=== PATIENT | female | born 1955 | race Caucasian/White ===

== ENCOUNTER 2016-09-09 17:29 | Emergency (ER) | payer OTHER ==
[~2016-09-09] VITALS: Wt 68.6 kg
[~2016-09-09 17:29] MED LIST: DOCU-159 PO; ESCI10TA PO; GABA100C PO; METH500T8 PO; METO-448 PO; OMEP20CA16 PO; ONDA4TAB35 PO
[2016-09-09] MEDS ORDERED: HYDROCODONE/APAP (5/325) TAB PO STA ×2 (19:51→20:36)
--- NOTE | 2016-09-09 20:29 | RADRPT ---
PROCEDURE: XR Humerus. CLINICAL INDICATION: Generalized pain TECHNIQUE: AP and lateral views of the right humerus were obtained. COMPARISON: No prior studies are available for comparison. FINDINGS: There are calcific fragments noted at the rotator cuff footprint measuring up to 7 mm in greatest le ngth, consistent with calcific tendonitis/hydroxyapatite deposition disease. There is mild arthrosi s at the glenohumeral and AC joints. No acute osseous abnormality is seen. IMPRESSION: 1. 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 2. No acute osseous abnormality. 3. Mild glenohumeral and AC joint arthrosis. RPTAT: TT .Ata Rod MD, MD Date Time Electronically viewed and signed by .Ata Rod MD, on 09/09/2016 20:29 .d/
--- NOTE | 2016-09-09 20:30 | RADRPT ---
PROCEDURE: XR Shoulder. CLINICAL INDICATION: Generalized pain TECHNIQUE: 2 views of the right shoulder are available for review. COMPARISON: None available FINDINGS: There are calcific fragments noted at the rotator cuff footprint measuring up to 7 mm in greatest le ngth, consistent with calcific tendonitis/hydroxyapatite deposition disease. There is mild arthrosi s at the glenohumeral and AC joints. No acute osseous abnormality is seen. The visualized portions of the right lung are clear. IMPRESSION: 1. 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 2. No acute osseous abnormality. 3. Mild glenohumeral and AC joint arthrosis. RPTAT: TT .Ata Rod MD, Date Time Electronically viewed and signed by .Ata Rod MD, on 09/09/2016 20:30 .d/
[2016-09-09] MEDS ORDERED: HYDR-906 PO (20:39)
--- NOTE | 2016-09-09 20:51 | ERD ---
ER Documentation Chief Complaint Date/Time DATE: 09/09/16 TIME: 20:48 Chief Complaint R ARM NON TRAUMATIC PAIN FOR 3 DAYS. NO DEFORMITY. LIMITED ROM HPI This is a 60-year-old female with history of hypertension presenting to the emergency department complaining of right shoulder and upper arm pain for the past 2 days. Patient states that she had no injury and happened suddenly when she woke up. Patient rates the pain 9 out of 10 and she states that it is difficult for her to move her arm. She states he took Tylenol 3 this morning without any relief. ROS All systems reviewed and are negative except as per history of present illness. Medications Home Meds Active Scripts Hydrocodone/Acetaminophen ([place] 5-325 Tablet) 1 Each Tablet, 1 TAB PO Q6H Y for PAIN, #20 TAB Prov:ABEBA CAMARILLO PA-C 09/09/16 Ondansetron Hcl* (Zofran* ODT) 4 mg -ODT Tab.disper, 4 MG PO Q6 Y for NAUSEA AND /OR VOMITING, #30 TAB Prov:NANCY HIGUERA MD 06/24/15 Reported Medications Metoprolol Tartrate* (Lopressor*) 25 Mg Tab, 25 MG PO BID, #60 TAB 06/24/15 Gabapentin* (Neurontin*) 100 Mg Capsule, 200 MG PO BID, CAP 06/24/15 Methocarbamol* (Methocarbamol*) 500 Mg Tablet, 500 MG PO Q8, TAB 06/24/15 Escitalopram Oxalate* (Lexapro*) 10 Mg Tablet, 10 MG PO DAILY, #30 TAB 06/24/15 Omeprazole* (Omeprazole*) 20 Mg Capsule.dr, 20 MG PO DAILY, CAP 06/24/15 Docusate Sodium* (Docusate Sodium*) 100 Mg Capsule, 100 MG PO DAILY, CAP 06/24/15 Allergies Allergies: Coded Allergies: sulfamethoxazole (Verified Allergy, Mild, 06/24/15) trimethoprim (Verified Allergy, Mild, 06/24/15) PMhx/Soc History of Surgery: Yes (RT EYE SURGERY) Anesthesia Reaction: No Hx Neurological Disorder: No Hx Respiratory Disorders: No Hx Cardiac Disorders: Yes (HTN) Hx Psychiatric Problems: No Hx Miscellaneous Medical Probl: Yes (pre-diabetic) Hx Alcohol Use: No Hx Substance Use: No Hx Tobacco Use: No Smoking Status: Never smoker Physical Exam Vitals Vital Signs Date Time Temp Pulse Resp B/P Pulse Ox O2 Delivery O2 Flow Rate FiO2 09/09/16 17:32 98.8 82 20 148/85 97 Physical Exam General: WD/WN, in no apparent distress, non-toxic appearing HENT: NC/AT Eyes: Conjunctiva normal Neck: Supple Pulm: Clear to auscultation, normal labored breathing; no wheezing/rales/ rhonchi heard CV: Good capillary refill GI: Non-distended, no guarding Back: No masses Ext: Tender palpation over the right shoulder and upper arm, restricted range of motion due to pain, patient is able to have full range of motion of her hand Neuro: Moves on all fours Skin: intact Psych: Normal mood Results 24 hrs Current Medications Medications (Trade) Dose Ordered Sig/Rere Route PRN Reason Start Time Stop Time Status Last Admin Dose Admin Acetaminophen/ Hydrocodone Bitart ([place] (5/325)) 2 tab ONCE STAT PO 09/09/16 19:51 09/09/16 19:57 DC Acetaminophen/ Hydrocodone Bitart ([place] (5/325)) 2 tab ONCE STAT PO 09/09/16 20:36 09/09/16 20:37 DC Procedures/MDM This is her 60-year-old female presenting to the emergency department complaining of atraumatic right shoulder pain for the past 3 days, differentials include but not limited to tendinitis, rotator cuff tear, adhesive capsulitis, and other shoulder conditions. I will low suspicion for fracture dislocation due to physical examination and diagnostic testing. In the ED patient was given [place] for pain. She is placed in an arm sling. Patient is neurovascular intact pre-and post treatment, she has restricted range of motion because of the pain. An x-ray of her right shoulder and forearm were done and radiologist stated: 1. 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 2. No acute osseous abnormality. 3. Mild glenohumeral and AC joint arthrosis. Patient is suitable to follow-up with her primary care physician tomorrow for further action management and possible referral to see an orthopedist. I discussed the patient return the ER for any worsening signs or symptoms. Prescription for [place] was provided, patient states that she is unable to take ibuprofen or NSAIDs due to gastritis patient understands and agrees with plan Departure Diagnosis: Primary Impression: Tendonitis Additional Impression: Right shoulder pain Chronicity: acute Qualified Code: M25.511 - Acute pain of right shoulder Condition: Stable Patient Instructions: Understanding Rotator Cuff Injuries, Shoulder Problems, Rotator Cuff Tear, Tendonitis Ref[facility]: [facility] Usted se sheikh hecho un examen mdico de control que le indica que no est en rosa condicin que requiera tratamiento urgente en el Departamento de Emergencia. Un estudio ms profundo y el tratamiento de [place] condicin pueden esperar sin ningn riesgo hasta que usted sea atendida/o en el consultorio de bar[place] mdico o rosa cl brandt. Es responsabilidad suya arreglar rosa delia para el seguimiento del imelda. MANEJO DE CONDICIONES NO URGENTES EN EL FUTURO 1) Si usted tiene un mdico de atencin primaria: Usted debera llamar a [place] mdico de atencin primaria antes de venir al departamento de emergencia. Despus de las horas de consultorio, [place] doctor o [place] asociado/a est disponible por telfono. El mdico o enfermero de jewel en el servicio telefnico puede asesorarle por donaldo medio para atender el problema, o imelda contrario se puede programar rosa delia. 2) Si usted no tiene un mdico de atencin primaria: Llame al mdico o clnica de referencia que aparece abajo khadijah las horas de consultorio para hacer rosa delia para que le vean. CLINICAS: [facility] [phone] [facility] [phone] [address] [facility] [phone] [address] [facility] [phone] [address] [facility] 536 [phone] [address] [facility] [phone] [address] [facility]. [facility] () Matilde se sheikh hecho un examen mdico de control que le indica que no est en rosa condicin que requiera tratamiento urgente en el Departamento de Emergencia. Un estudio ms profundo y el tratamiento de [place] condicin pueden esperar sin ningn riesgo hasta que usted sea atendida/o en el consultorio de bar[place] mdico o rosa cl brandt. Es responsabilidad suya arreglar rosa delia para el seguimiento del imelda. MANEJO DE CONDICIONES NO URGENTES EN EL FUTURO 1) Si usted tiene un mdico de atencin primaria: ted debera llamar a [place] mdico de atencin primaria antes de venir al departamento de emergencia. Despus de las horas de consultorio, [place] doctor o [place] asociado/a est disponible por telfono. El mdico o enfermero de jewel en el servicio telefnico puede asesorarle por donaldo medio para atender el problema, o imelda contrario se puede programar rosa delia. 2) Si usted no tiene un mdico de atencin primaria: Llame al mdico o condado institucions de referencia que aparece abajo khadijah las horas de consultorio para hacer rosa delia para que le vean. SI USTED NO PUEDE PAGAR PARA KAMAR UN MEDICO puede ir a: [facility] [address] [place] [address] [facility] [address] [place] [address] [facility] [address] [place] [address] [facility]A [facility] [address] [place] [address] Additional Instructions: Specialist:Matilde tiene rosa condicin mdica que requiere que twin a un especialista dentro de los prximos 1-2 de la paz.POR FAVOR,CON [place] SEGUIMIENTO DE PRIMARIA PHSICIAN refferal. SI USTED NO TIENE UN MDICO GENERAL Y / O USTED NO PUEDE PAGAR kamar a un mdico,los siguientes hayes RECURSOS sido suministrado a usted. ES [place] RESPONSABILIDAD PARA SER VISTOS POR EL ESPECIALISTA:Visite a bar[place] m dico maana para un EXAMEN.Regrese a estas instalaciones si no se mejora samia esperbamos o samia le dijimos. [place] toda la medicina olena y samia se le indic. La medicina que se le recet puede causarle sueo.NO DEBE MANEJAR NI OPERAR MAQUINARIAS PELIGROSAS mientras esta tomando esta medicina! Regrese a estas instalaciones si no se mejora samia esperbamos o samia le dijimos. ABEBA CAMARILLO PA-C Sep 09, 2016 20:51
[2016-09-09 21:32] VITALS: BP 151/81; PULSE 75; RESP 20; TEMP 98.3
== END 2016-09-09 21:32 | disposition home or self-care (01) ==
LOC: FTE 17:29
DX: M77.9 Enthesopathy, unspecified (principal); I10 Essential (primary) hypertension
CPT/HCPCS: 73030; 73060; Z7502; Z7610

== ENCOUNTER 2017-05-05 11:14 | Inpatient (IN) | payer OTHER ==
[~2017-05-05] VITALS: Ht 157.5 cm; Wt 74.1 kg
[~2017-05-05 11:14] MED LIST changes: +HYDR-906 PO
--- NOTE | 2017-05-05 14:21 | ERD ---
ER Documentation Chief Complaint Chief Complaint AP RADIATING TO BACK X4 DAYS, W/NAUSEA. HPI The patient is a 61-year-old female, presenting to the ER because of diffuse abdominal pain intermittently for the last 4 days, worse today, associated with nausea and constipation. She denies fever, chills, neck pain, chest pain, dyspnea, dysuria. She does smoke, denies drinking Past medical history: Hypertension, depression Past surgical history: Right knee replacement, eye surgery, ROS All systems reviewed and are negative except as per history of present illness. Medications Home Meds Active Scripts Hydrocodone/Acetaminophen ([place] 5-325 Tablet) 1 Each Tablet, 1 TAB PO Q6H Y for PAIN, #20 TAB Prov:ABEBA CAMARILLO PA-C 09/09/16 Ondansetron Hcl* (Zofran* ODT) 4 mg -ODT Tab.disper, 4 MG PO Q6 Y for NAUSEA AND /OR VOMITING, #30 TAB Prov:NANCY HIGUERA MD 06/24/15 Reported Medications Metoprolol Tartrate* (Lopressor*) 25 Mg Tab, 25 MG PO BID, #60 TAB 06/24/15 Gabapentin* (Neurontin*) 100 Mg Capsule, 200 MG PO BID, CAP 06/24/15 Methocarbamol* (Methocarbamol*) 500 Mg Tablet, 500 MG PO Q8, TAB 06/24/15 Escitalopram Oxalate* (Lexapro*) 10 Mg Tablet, 10 MG PO DAILY, #30 TAB 06/24/15 Omeprazole* (Omeprazole*) 20 Mg Capsule.dr, 20 MG PO DAILY, CAP 06/24/15 Docusate Sodium* (Docusate Sodium*) 100 Mg Capsule, 100 MG PO DAILY, CAP 06/24/15 Allergies Allergies: Coded Allergies: sulfamethoxazole (Verified Allergy, Mild, 06/24/15) trimethoprim (Verified Allergy, Mild, 06/24/15) PMhx/Soc History of Surgery: Yes (RT EYE SURGERY) Anesthesia Reaction: No Hx Neurological Disorder: No Hx Respiratory Disorders: No Hx Cardiac Disorders: Yes (HTN) Hx Psychiatric Problems: No Hx Miscellaneous Medical Probl: Yes (pre-diabetic) Hx Alcohol Use: No Hx Substance Use: No Hx Tobacco Use: No Physical Exam Vitals Vital Signs Date Time Temp Pulse Resp B/P Pulse Ox O2 Delivery O2 Flow Rate FiO2 05/05/17 16:49 61 16 104/53 99 Room Air 05/05/17 11:29 99.5 77 18 149/88 99 Physical Exam Const: No acute distress. Head: Atraumatic. Eyes: Normal Conjunctiva. ENT: Normal External Ears, Nose and Mouth. Neck: Full range of motion. No meningismus. Resp: Clear to auscultation bilaterally. Cardio: Regular rate and rhythm. Abd: Soft, non distended, normal bowel sounds, Moderate and diffuse abdominal tenderness, no rigidity, rebound, CVA tenderness Skin: No petechiae or rashes. Back: No midline or flank tenderness. Ext: No cyanosis, or edema. Neur: Awake and alert. No focal deficit Psych: Normal Mood and Affect. Result Diagram: 05/05/17 1458 05/05/17 1458 Results 24 hrs Laboratory Tests Test 05/05/17 14:37 05/05/17 14:58 Bedside Urine pH (LAB) 7.5 Bedside Urine Protein (LAB) Negative Bedside Urine Glucose (UA) Negative Bedside Urine Ketones (LAB) Negative Bedside Urine Blood Trace-lysed Bedside Urine Nitrite (LAB) Negative Bedside Urine Leukocyte Esterase (L Negative White Blood Count 12.410^3/ul Red Blood Count 4.7810^6/ul Hemoglobin 13.5g/dl Hematocrit 41.9% Mean Corpuscular Volume 87.7fl Mean Corpuscular Hemoglobin 28.2pg Mean Corpuscular Hemoglobin Concent 32.2g/dl Red Cell Distribution Width 13.7% Platelet Count 66747^3/UL Mean Platelet Volume 10.1fl Neutrophils % 73.3% Lymphocytes % 17.4% Monocytes % 6.8% Eosinophils % 1.5% Basophils % 0.6% Nucleated Red Blood Cells % 0.0/100WBC Neutrophils # 9.110^3/ul Lymphocytes # 2.210^3/ul Monocytes # 0.810^3/ul Eosinophils # 0.210^3/ul Basophils # 0.110^3/ul Nucleated Red Blood Cells # 0.010^3/ul Sodium Level 140mmol/L Potassium Level 3.8mmol/L Chloride Level 103mmol/L Carbon Dioxide Level 27mmol/L Anion Gap 14 Blood Urea Nitrogen 9mg/dl Creatinine 0.55mg/dl Glucose Level 95mg/dl Calcium Level 8.9mg/dl Total Bilirubin 0.2mg/dl Direct Bilirubin 0.00mg/dl Indirect Bilirubin 0.2mg/dl Aspartate Amino Transf (AST/SGOT) 19IU/L Alanine Aminotransferase (ALT/SGPT) 34IU/L Alkaline Phosphatase 106IU/L Total Protein 7.3g/dl Albumin 4.1g/dl Globulin 3.20g/dl Albumin/Globulin Ratio 1.28 Lipase 88U/L Current Medications Medications (Trade) Dose Ordered Sig/Rere Route PRN Reason Start Time Stop Time Status Last Admin Dose Admin Morphine Sulfate (morphine) 2 mg ONCE ONCE IV 05/05/17 15:00 05/05/17 15:01 DC 05/05/17 15:04 Ondansetron HCl (Zofran Inj) 4 mg ONCE STAT IV 05/05/17 14:36 05/05/17 14:37 DC 05/05/17 15:04 Hydromorphone HCl 1 mg 1 mg ONCE STAT IV 05/05/17 15:45 05/05/17 15:46 DC 05/05/17 16:08 Piperacillin Sod/ Tazobactam Sod (Zosyn 3.375gm/ 100 ml (Pmx)) 100 ml @ 200 mls/hr ONCE ONCE IVPB 05/05/17 16:30 05/05/17 16:59 DC 05/05/17 16:28 Procedures/[place] [address] Radiology Main Line: [phone] DIAGNOSTIC IMAGING REPORT Patient: DREW EDUARDO : 1955 Age: 61 Sex: F MR #: [id number] DOS: 05/05/17 0000 Ordering MD: MATTY MAYERS MD Location: E/R Room/Bed: PROCEDURE: Chest x-ray CLINICAL INDICATION: Preop TECHNIQUE: Chest single view COMPARISON: None FINDINGS: The heart is normal in size. The pulmonary vessels are normal in caliber. The lungs are clear. The costophrenic angles are sharp. The visualized bony thorax is unremarkable. IMPRESSION: No acute cardiopulmonary disease. RPTAT: HH .Almas Huerta MD, Date Time Electronically viewed and signed by .Almas Huerta MD, MD on 05/05/2017 17:11 .W/ CC: MATTY MAYERS MD [place] [address] Radiology Main Line: [phone] DIAGNOSTIC IMAGING REPORT Patient: DREW EDUARDO : 1955 Age: 61 Sex: F MR #: [id number] DOS: 05/05/17 1437 Ordering MD: MATTY MAYERS MD Location: E/R Room/Bed: PROCEDURE: CT ABDOMEN AND PELVIS WITHOUT CONTRAST. CLINICAL INDICATION: Abdominal pain TECHNIQUE: CT scan of the abdomen and pelvis without contrast was performed on a multidetector high-resolution CT scanner. The patient was scanned without intravenous contrast. Coronal and sagittal reformatted images were obtained from the axial source images. Images were reviewed on a high-resolution PACS workstation. The total exam CTDI equals 18.5 mGy and the total exam DLP equals 1010 mGy-cm. One or more of the following dose reduction techniques were used: Automated exposure control. Adjustment of the mA and/or kV according to patient size. Use of iterative reconstruction technique. COMPARISON: None FINDINGS: CT abdomen: The lung bases are clear. The heart size is within limits. There is no significant pericardial effusion. Hepatic morphology is within limits. Small cyst is noted within the right lobe liver. Gallbladder is unremarkable. No evidence of intrahepatic or extrahepatic dilatation. The spleen and pancreas are within normal limits. Both adrenal glands are within normal limits. Both kidneys are in normal anatomic position. No evidence of obstruction or hydronephrosis. No gross renal/ureteric calculi. The visualized GI tract demonstrate normal caliber loops of small and large bowel. There is a dilated tubular structure within right lower quadrant with adjacent inflammatory changes, consistent with acute appendicitis. No evidence of perforation or focal fluid collections. Atherosclerotic calcification of the aorta is noted. No significant retroperitoneal lymphadenopathy. CT pelvis: The bladder is within limits. The rectosigmoid colon is within normal limits. The uterus is unremarkable. There is sigmoid diverticulosis. No signal free fluid. No significant pelvic lymphadenopathy. The visualized osseous structures demonstrate multilevel degenerative disease of the spine. IMPRESSION: 1. FINDINGS DESCRIBED ABOVE ARE CONSISTENT WITH ACUTE APPENDICITIS. No perforation or focal fluid collections. There is adjacent inflammatory changes. 2. No evidence of bowel obstruction. There is sigmoid diverticulosis without evidence of diverticulitis. 3. Atherosclerotic disease of the aorta. RPTAT: AAPP Physician Darrell Date Time Electronically viewed and signed by Physician Darrell on 05/05/2017 15:36 JL/ CC: MATTY MAYERS MD EKG: Read by emergency physician Rate/Rhythm: Normal Sinus Rhythm 63 beats/min QRS, ST, T-waves: No ST elevation, no T inversion Impression: Normal EKG MEDICAL MAKING DECISION: The patient is a 71-year-old female, presenting with acute appendicitis. She was treated with Zosyn IV, morphine 4 mg and Dilaudid 1 mg IV for pain and Zofran 4 mg IV for nausea with good response. The differential diagnoses considered include but are not limited to cholelithiasis, cholecystitis, cystitis, pancreatitis, hepatitis, gastritis, peptic ulcer disease, gastric ulcer, appendicitis, diverticulitis, cholangitis, choledocholithiasis, partial small bowel obstruction. Consultation: I discussed the patient with the on-call general surgeon Dr. Mckee at 4:30 PM, who was made aware of the lab, the treatment, the patient condition. He accepted the consult Departure Diagnosis: Primary Impression: Appendicitis Condition: Stable Comments I discussed the findings with the patient. I discussed the patient with hospitalist Dr. Coates at 4:35 pm who was made aware of the lab, the treatment , the patient condition. The patient is admitted to medical surgery bed MATTY MAYERS MD May 05, 2017 14:21
--- NOTE | 2017-05-05 14:21 | ERD ---
ER Documentation Chief Complaint Chief Complaint AP RADIATING TO BACK X4 DAYS, W/NAUSEA. HPI The patient is a 61-year-old female, presenting to the ER because of diffuse abdominal pain intermittently for the last 4 days, worse today, associated with nausea and constipation. She denies fever, chills, neck pain, chest pain, dyspnea, dysuria. She does smoke, denies drinking Past medical history: Hypertension, depression Past surgical history: Right knee replacement, eye surgery, ROS All systems reviewed and are negative except as per history of present illness. Medications Home Meds Active Scripts Hydrocodone/Acetaminophen ([place] 5-325 Tablet) 1 Each Tablet, 1 TAB PO Q6H Y for PAIN, #20 TAB Prov:ABEBA CAMARILLO PA-C 09/09/16 Ondansetron Hcl* (Zofran* ODT) 4 mg -ODT Tab.disper, 4 MG PO Q6 Y for NAUSEA AND /OR VOMITING, #30 TAB Prov:NANCY HIGUERA MD 06/24/15 Reported Medications Metoprolol Tartrate* (Lopressor*) 25 Mg Tab, 25 MG PO BID, #60 TAB 06/24/15 Gabapentin* (Neurontin*) 100 Mg Capsule, 200 MG PO BID, CAP 06/24/15 Methocarbamol* (Methocarbamol*) 500 Mg Tablet, 500 MG PO Q8, TAB 06/24/15 Escitalopram Oxalate* (Lexapro*) 10 Mg Tablet, 10 MG PO DAILY, #30 TAB 06/24/15 Omeprazole* (Omeprazole*) 20 Mg Capsule.dr, 20 MG PO DAILY, CAP 06/24/15 Docusate Sodium* (Docusate Sodium*) 100 Mg Capsule, 100 MG PO DAILY, CAP 06/24/15 Allergies Allergies: Coded Allergies: sulfamethoxazole (Verified Allergy, Mild, 06/24/15) trimethoprim (Verified Allergy, Mild, 06/24/15) PMhx/Soc History of Surgery: Yes (RT EYE SURGERY) Anesthesia Reaction: No Hx Neurological Disorder: No Hx Respiratory Disorders: No Hx Cardiac Disorders: Yes (HTN) Hx Psychiatric Problems: No Hx Miscellaneous Medical Probl: Yes (pre-diabetic) Hx Alcohol Use: No Hx Substance Use: No Hx Tobacco Use: No Physical Exam Vitals Vital Signs Date Time Temp Pulse Resp B/P Pulse Ox O2 Delivery O2 Flow Rate FiO2 05/05/17 16:49 61 16 104/53 99 Room Air 05/05/17 11:29 99.5 77 18 149/88 99 Physical Exam Const: No acute distress. Head: Atraumatic. Eyes: Normal Conjunctiva. ENT: Normal External Ears, Nose and Mouth. Neck: Full range of motion. No meningismus. Resp: Clear to auscultation bilaterally. Cardio: Regular rate and rhythm. Abd: Soft, non distended, normal bowel sounds, Moderate and diffuse abdominal tenderness, no rigidity, rebound, CVA tenderness Skin: No petechiae or rashes. Back: No midline or flank tenderness. Ext: No cyanosis, or edema. Neur: Awake and alert. No focal deficit Psych: Normal Mood and Affect. Result Diagram: 05/05/17 1458 05/05/17 1458 Results 24 hrs Laboratory Tests Test 05/05/17 14:37 05/05/17 14:58 Bedside Urine pH (LAB) 7.5 Bedside Urine Protein (LAB) Negative Bedside Urine Glucose (UA) Negative Bedside Urine Ketones (LAB) Negative Bedside Urine Blood Trace-lysed Bedside Urine Nitrite (LAB) Negative Bedside Urine Leukocyte Esterase (L Negative White Blood Count 12.410^3/ul Red Blood Count 4.7810^6/ul Hemoglobin 13.5g/dl Hematocrit 41.9% Mean Corpuscular Volume 87.7fl Mean Corpuscular Hemoglobin 28.2pg Mean Corpuscular Hemoglobin Concent 32.2g/dl Red Cell Distribution Width 13.7% Platelet Count 66384^3/UL Mean Platelet Volume 10.1fl Neutrophils % 73.3% Lymphocytes % 17.4% Monocytes % 6.8% Eosinophils % 1.5% Basophils % 0.6% Nucleated Red Blood Cells % 0.0/100WBC Neutrophils # 9.110^3/ul Lymphocytes # 2.210^3/ul Monocytes # 0.810^3/ul Eosinophils # 0.210^3/ul Basophils # 0.110^3/ul Nucleated Red Blood Cells # 0.010^3/ul Sodium Level 140mmol/L Potassium Level 3.8mmol/L Chloride Level 103mmol/L Carbon Dioxide Level 27mmol/L Anion Gap 14 Blood Urea Nitrogen 9mg/dl Creatinine 0.55mg/dl Glucose Level 95mg/dl Calcium Level 8.9mg/dl Total Bilirubin 0.2mg/dl Direct Bilirubin 0.00mg/dl Indirect Bilirubin 0.2mg/dl Aspartate Amino Transf (AST/SGOT) 19IU/L Alanine Aminotransferase (ALT/SGPT) 34IU/L Alkaline Phosphatase 106IU/L Total Protein 7.3g/dl Albumin 4.1g/dl Globulin 3.20g/dl Albumin/Globulin Ratio 1.28 Lipase 88U/L Current Medications Medications (Trade) Dose Ordered Sig/Rere Route PRN Reason Start Time Stop Time Status Last Admin Dose Admin Morphine Sulfate (morphine) 2 mg ONCE ONCE IV 05/05/17 15:00 05/05/17 15:01 DC 05/05/17 15:04 Ondansetron HCl (Zofran Inj) 4 mg ONCE STAT IV 05/05/17 14:36 05/05/17 14:37 DC 05/05/17 15:04 Hydromorphone HCl 1 mg 1 mg ONCE STAT IV 05/05/17 15:45 05/05/17 15:46 DC 05/05/17 16:08 Piperacillin Sod/ Tazobactam Sod (Zosyn 3.375gm/ 100 ml (Pmx)) 100 ml @ 200 mls/hr ONCE ONCE IVPB 05/05/17 16:30 05/05/17 16:59 DC 05/05/17 16:28 Procedures/[place] [address] Radiology Main Line: [phone] DIAGNOSTIC IMAGING REPORT Patient: DREW EDUARDO : 1955 Age: 61 Sex: F MR #: [id number] DOS: 05/05/17 0000 Ordering MD: MATTY MAYERS MD Location: E/R Room/Bed: PROCEDURE: Chest x-ray CLINICAL INDICATION: Preop TECHNIQUE: Chest single view COMPARISON: None FINDINGS: The heart is normal in size. The pulmonary vessels are normal in caliber. The lungs are clear. The costophrenic angles are sharp. The visualized bony thorax is unremarkable. IMPRESSION: No acute cardiopulmonary disease. RPTAT: HH .Almas Huerta MD, Date Time Electronically viewed and signed by .Almas Huerta MD, MD on 05/05/2017 17:11 .W/ CC: MATTY MAYERS MD [place] [id number] Radiology Main Line: [phone] DIAGNOSTIC IMAGING REPORT Patient: DREW EDUARDO : 1955 Age: 61 Sex: F MR #: [id number] DOS: 05/05/17 1437 Ordering MD: MATTY MAYERS MD Location: E/R Room/Bed: PROCEDURE: CT ABDOMEN AND PELVIS WITHOUT CONTRAST. CLINICAL INDICATION: Abdominal pain TECHNIQUE: CT scan of the abdomen and pelvis without contrast was performed on a multidetector high-resolution CT scanner. The patient was scanned without intravenous contrast. Coronal and sagittal reformatted images were obtained from the axial source images. Images were reviewed on a high-resolution PACS workstation. The total exam CTDI equals 18.5 mGy and the total exam DLP equals 1010 mGy-cm. One or more of the following dose reduction techniques were used: Automated exposure control. Adjustment of the mA and/or kV according to patient size. Use of iterative reconstruction technique. COMPARISON: None FINDINGS: CT abdomen: The lung bases are clear. The heart size is within limits. There is no significant pericardial effusion. Hepatic morphology is within limits. Small cyst is noted within the right lobe liver. Gallbladder is unremarkable. No evidence of intrahepatic or extrahepatic dilatation. The spleen and pancreas are within normal limits. Both adrenal glands are within normal limits. Both kidneys are in normal anatomic position. No evidence of obstruction or hydronephrosis. No gross renal/ureteric calculi. The visualized GI tract demonstrate normal caliber loops of small and large bowel. There is a dilated tubular structure within right lower quadrant with adjacent inflammatory changes, consistent with acute appendicitis. No evidence of perforation or focal fluid collections. Atherosclerotic calcification of the aorta is noted. No significant retroperitoneal lymphadenopathy. CT pelvis: The bladder is within limits. The rectosigmoid colon is within normal limits. The uterus is unremarkable. There is sigmoid diverticulosis. No signal free fluid. No significant pelvic lymphadenopathy. The visualized osseous structures demonstrate multilevel degenerative disease of the spine. IMPRESSION: 1. FINDINGS DESCRIBED ABOVE ARE CONSISTENT WITH ACUTE APPENDICITIS. No perforation or focal fluid collections. There is adjacent inflammatory changes. 2. No evidence of bowel obstruction. There is sigmoid diverticulosis without evidence of diverticulitis. 3. Atherosclerotic disease of the aorta. RPTAT: AAPP Physician Darrell Date Time Electronically viewed and signed by Physician Darrell on 05/05/2017 15:36 JL/ CC: MATTY MAYERS MD EKG: Read by emergency physician Rate/Rhythm: Normal Sinus Rhythm 63 beats/min QRS, ST, T-waves: No ST elevation, no T inversion Impression: Normal EKG MEDICAL MAKING DECISION: The patient is a 71-year-old female, presenting with acute appendicitis. She was treated with Zosyn IV, morphine 4 mg and Dilaudid 1 mg IV for pain and Zofran 4 mg IV for nausea with good response. The differential diagnoses considered include but are not limited to cholelithiasis, cholecystitis, cystitis, pancreatitis, hepatitis, gastritis, peptic ulcer disease, gastric ulcer, appendicitis, diverticulitis, cholangitis, choledocholithiasis, partial small bowel obstruction. Consultation: I discussed the patient with the on-call general surgeon Dr. Mckee at 4:30 PM, who was made aware of the lab, the treatment, the patient condition. He accepted the consult Departure Diagnosis: Primary Impression: Appendicitis Condition: Stable Comments I discussed the findings with the patient. I discussed the patient with hospitalist Dr. Coates at 4:35 pm who was made aware of the lab, the treatment , the patient condition. The patient is admitted to medical surgery bed MATTY MAYERS MD May 05, 2017 14:21
--- NOTE | 2017-05-05 14:21 | ERD ---
ER Documentation Chief Complaint Chief Complaint AP RADIATING TO BACK X4 DAYS, W/NAUSEA. HPI The patient is a 61-year-old female, presenting to the ER because of diffuse abdominal pain intermittently for the last 4 days, worse today, associated with nausea and constipation. She denies fever, chills, neck pain, chest pain, dyspnea, dysuria. She does smoke, denies drinking Past medical history: Hypertension, depression Past surgical history: Right knee replacement, eye surgery, ROS All systems reviewed and are negative except as per history of present illness. Medications Home Meds Active Scripts Hydrocodone/Acetaminophen ([place] 5-325 Tablet) 1 Each Tablet, 1 TAB PO Q6H Y for PAIN, #20 TAB Prov:ABEBA CAMARILLO PA-C 09/09/16 Ondansetron Hcl* (Zofran* ODT) 4 mg -ODT Tab.disper, 4 MG PO Q6 Y for NAUSEA AND /OR VOMITING, #30 TAB Prov:NANCY HIGUERA MD 06/24/15 Reported Medications Metoprolol Tartrate* (Lopressor*) 25 Mg Tab, 25 MG PO BID, #60 TAB 06/24/15 Gabapentin* (Neurontin*) 100 Mg Capsule, 200 MG PO BID, CAP 06/24/15 Methocarbamol* (Methocarbamol*) 500 Mg Tablet, 500 MG PO Q8, TAB 06/24/15 Escitalopram Oxalate* (Lexapro*) 10 Mg Tablet, 10 MG PO DAILY, #30 TAB 06/24/15 Omeprazole* (Omeprazole*) 20 Mg Capsule.dr, 20 MG PO DAILY, CAP 06/24/15 Docusate Sodium* (Docusate Sodium*) 100 Mg Capsule, 100 MG PO DAILY, CAP 06/24/15 Allergies Allergies: Coded Allergies: sulfamethoxazole (Verified Allergy, Mild, 06/24/15) trimethoprim (Verified Allergy, Mild, 06/24/15) PMhx/Soc History of Surgery: Yes (RT EYE SURGERY) Anesthesia Reaction: No Hx Neurological Disorder: No Hx Respiratory Disorders: No Hx Cardiac Disorders: Yes (HTN) Hx Psychiatric Problems: No Hx Miscellaneous Medical Probl: Yes (pre-diabetic) Hx Alcohol Use: No Hx Substance Use: No Hx Tobacco Use: No Physical Exam Vitals Vital Signs Date Time Temp Pulse Resp B/P Pulse Ox O2 Delivery O2 Flow Rate FiO2 05/05/17 16:49 61 16 104/53 99 Room Air 05/05/17 11:29 99.5 77 18 149/88 99 Physical Exam Const: No acute distress. Head: Atraumatic. Eyes: Normal Conjunctiva. ENT: Normal External Ears, Nose and Mouth. Neck: Full range of motion. No meningismus. Resp: Clear to auscultation bilaterally. Cardio: Regular rate and rhythm. Abd: Soft, non distended, normal bowel sounds, Moderate and diffuse abdominal tenderness, no rigidity, rebound, CVA tenderness Skin: No petechiae or rashes. Back: No midline or flank tenderness. Ext: No cyanosis, or edema. Neur: Awake and alert. No focal deficit Psych: Normal Mood and Affect. Result Diagram: 05/05/17 1458 05/05/17 1458 Results 24 hrs Laboratory Tests Test 05/05/17 14:37 05/05/17 14:58 Bedside Urine pH (LAB) 7.5 Bedside Urine Protein (LAB) Negative Bedside Urine Glucose (UA) Negative Bedside Urine Ketones (LAB) Negative Bedside Urine Blood Trace-lysed Bedside Urine Nitrite (LAB) Negative Bedside Urine Leukocyte Esterase (L Negative White Blood Count 12.410^3/ul Red Blood Count 4.7810^6/ul Hemoglobin 13.5g/dl Hematocrit 41.9% Mean Corpuscular Volume 87.7fl Mean Corpuscular Hemoglobin 28.2pg Mean Corpuscular Hemoglobin Concent 32.2g/dl Red Cell Distribution Width 13.7% Platelet Count 08986^3/UL Mean Platelet Volume 10.1fl Neutrophils % 73.3% Lymphocytes % 17.4% Monocytes % 6.8% Eosinophils % 1.5% Basophils % 0.6% Nucleated Red Blood Cells % 0.0/100WBC Neutrophils # 9.110^3/ul Lymphocytes # 2.210^3/ul Monocytes # 0.810^3/ul Eosinophils # 0.210^3/ul Basophils # 0.110^3/ul Nucleated Red Blood Cells # 0.010^3/ul Sodium Level 140mmol/L Potassium Level 3.8mmol/L Chloride Level 103mmol/L Carbon Dioxide Level 27mmol/L Anion Gap 14 Blood Urea Nitrogen 9mg/dl Creatinine 0.55mg/dl Glucose Level 95mg/dl Calcium Level 8.9mg/dl Total Bilirubin 0.2mg/dl Direct Bilirubin 0.00mg/dl Indirect Bilirubin 0.2mg/dl Aspartate Amino Transf (AST/SGOT) 19IU/L Alanine Aminotransferase (ALT/SGPT) 34IU/L Alkaline Phosphatase 106IU/L Total Protein 7.3g/dl Albumin 4.1g/dl Globulin 3.20g/dl Albumin/Globulin Ratio 1.28 Lipase 88U/L Current Medications Medications (Trade) Dose Ordered Sig/Rere Route PRN Reason Start Time Stop Time Status Last Admin Dose Admin Morphine Sulfate (morphine) 2 mg ONCE ONCE IV 05/05/17 15:00 05/05/17 15:01 DC 05/05/17 15:04 Ondansetron HCl (Zofran Inj) 4 mg ONCE STAT IV 05/05/17 14:36 05/05/17 14:37 DC 05/05/17 15:04 Hydromorphone HCl 1 mg 1 mg ONCE STAT IV 05/05/17 15:45 05/05/17 15:46 DC 05/05/17 16:08 Piperacillin Sod/ Tazobactam Sod (Zosyn 3.375gm/ 100 ml (Pmx)) 100 ml @ 200 mls/hr ONCE ONCE IVPB 05/05/17 16:30 05/05/17 16:59 DC 05/05/17 16:28 Procedures/[place] [address] Radiology Main Line: [phone] DIAGNOSTIC IMAGING REPORT Patient: DREW EDUARDO : 1955 Age: 61 Sex: F MR #: [id number] DOS: 05/05/17 0000 Ordering MD: MATTY MAYERS MD Location: E/R Room/Bed: PROCEDURE: Chest x-ray CLINICAL INDICATION: Preop TECHNIQUE: Chest single view COMPARISON: None FINDINGS: The heart is normal in size. The pulmonary vessels are normal in caliber. The lungs are clear. The costophrenic angles are sharp. The visualized bony thorax is unremarkable. IMPRESSION: No acute cardiopulmonary disease. RPTAT: HH .Almas Huerta MD, Date Time Electronically viewed and signed by .Almas Huerta MD, MD on 05/05/2017 17:11 .W/ CC: MATTY MAYERS MD [place] [address] Radiology Main Line: [phone] DIAGNOSTIC IMAGING REPORT Patient: DREW EDUARDO : 1955 Age: 61 Sex: F MR #: [id number] DOS: 05/05/17 1437 Ordering MD: MATTY MAYERS MD Location: E/R Room/Bed: PROCEDURE: CT ABDOMEN AND PELVIS WITHOUT CONTRAST. CLINICAL INDICATION: Abdominal pain TECHNIQUE: CT scan of the abdomen and pelvis without contrast was performed on a multidetector high-resolution CT scanner. The patient was scanned without intravenous contrast. Coronal and sagittal reformatted images were obtained from the axial source images. Images were reviewed on a high-resolution PACS workstation. The total exam CTDI equals 18.5 mGy and the total exam DLP equals 1010 mGy-cm. One or more of the following dose reduction techniques were used: Automated exposure control. Adjustment of the mA and/or kV according to patient size. Use of iterative reconstruction technique. COMPARISON: None FINDINGS: CT abdomen: The lung bases are clear. The heart size is within limits. There is no significant pericardial effusion. Hepatic morphology is within limits. Small cyst is noted within the right lobe liver. Gallbladder is unremarkable. No evidence of intrahepatic or extrahepatic dilatation. The spleen and pancreas are within normal limits. Both adrenal glands are within normal limits. Both kidneys are in normal anatomic position. No evidence of obstruction or hydronephrosis. No gross renal/ureteric calculi. The visualized GI tract demonstrate normal caliber loops of small and large bowel. There is a dilated tubular structure within right lower quadrant with adjacent inflammatory changes, consistent with acute appendicitis. No evidence of perforation or focal fluid collections. Atherosclerotic calcification of the aorta is noted. No significant retroperitoneal lymphadenopathy. CT pelvis: The bladder is within limits. The rectosigmoid colon is within normal limits. The uterus is unremarkable. There is sigmoid diverticulosis. No signal free fluid. No significant pelvic lymphadenopathy. The visualized osseous structures demonstrate multilevel degenerative disease of the spine. IMPRESSION: 1. FINDINGS DESCRIBED ABOVE ARE CONSISTENT WITH ACUTE APPENDICITIS. No perforation or focal fluid collections. There is adjacent inflammatory changes. 2. No evidence of bowel obstruction. There is sigmoid diverticulosis without evidence of diverticulitis. 3. Atherosclerotic disease of the aorta. RPTAT: AAPP Physician Darrell Date Time Electronically viewed and signed by Physician Darrell on 05/05/2017 15:36 JL/ CC: MATTY MAYERS MD EKG: Read by emergency physician Rate/Rhythm: Normal Sinus Rhythm 63 beats/min QRS, ST, T-waves: No ST elevation, no T inversion Impression: Normal EKG MEDICAL MAKING DECISION: The patient is a 71-year-old female, presenting with acute appendicitis. She was treated with Zosyn IV, morphine 4 mg and Dilaudid 1 mg IV for pain and Zofran 4 mg IV for nausea with good response. The differential diagnoses considered include but are not limited to cholelithiasis, cholecystitis, cystitis, pancreatitis, hepatitis, gastritis, peptic ulcer disease, gastric ulcer, appendicitis, diverticulitis, cholangitis, choledocholithiasis, partial small bowel obstruction. Consultation: I discussed the patient with the on-call general surgeon Dr. Mckee at 4:30 PM, who was made aware of the lab, the treatment, the patient condition. He accepted the consult Departure Diagnosis: Primary Impression: Appendicitis Condition: Stable Comments I discussed the findings with the patient. I discussed the patient with hospitalist Dr. Coates at 4:35 pm who was made aware of the lab, the treatment , the patient condition. The patient is admitted to medical surgery bed MATTY MAYERS MD May 05, 2017 14:21
[2017-05-05] MEDS ORDERED: ONDANSETRON 4 MG INJ IV STA (14:36)
[2017-05-05] MEDS ORDERED: morphine 2 MG INJ IV ONE (15:00)
--- NOTE | 2017-05-05 15:36 | RADRPT ---
PROCEDURE: CT ABDOMEN AND PELVIS WITHOUT CONTRAST. CLINICAL INDICATION: Abdominal pain TECHNIQUE: CT scan of the abdomen and pelvis without contrast was performed on a multidetector hig h-resolution CT scanner. The patient was scanned without intravenous contrast. Coronal and sagittal reformatted images were obtained from the axial source images. Images were reviewed on a high-resol [employer] PACS workstation. The total exam CTDI equals 18.5 mGy and the total exam DLP equals 1010 mGy-c m. One or more of the following dose reduction techniques were used: Automated exposure control. Adjustment of the mA and/or kV according to patient size. Use of iterative reconstruction technique. COMPARISON: None FINDINGS: CT abdomen: The lung bases are clear. The heart size is within limits. There is no significant pericardial effus ion. Hepatic morphology is within limits. Small cyst is noted within the right lobe liver. Gallbladder is unremarkable. No evidence of intrahepatic or extrahepatic dilatation. The spleen and pancreas are within normal limits. Both adrenal glands are within normal limits. Both kidneys are in normal anatomic position. No evidence of obstruction or hydronephrosis. No gross renal/ureteric calculi. The visualized GI tract demonstrate normal caliber loops of small and large bowel. There is a dilate d tubular structure within right lower quadrant with adjacent inflammatory changes, consistent with acute appendicitis. No evidence of perforation or focal fluid collections. Atherosclerotic calcification of the aorta is noted. No significant retroperitoneal lymphadenopathy. CT pelvis: The bladder is within limits. The rectosigmoid colon is within normal limits. The uterus is unremark able. There is sigmoid diverticulosis. No signal free fluid. No significant pelvic lymphadenopathy. The visualized osseous structures demonstrate multilevel degenerative disease of the spine. IMPRESSION: 1. FINDINGS DESCRIBED ABOVE ARE CONSISTENT WITH ACUTE APPENDICITIS. No perforation or focal fluid collections. There is adjacent inflammatory changes. 2. No evidence of bowel obstruction. There is sigmoid diverticulosis without evidence of diverticuli tis. 3. Atherosclerotic disease of the aorta. RPTAT: AAPP Physician Darrell Date Time Electronically viewed and signed by Physician Darrell on 05/05/2017 15:36 JL/
[2017-05-05] MEDS ORDERED: HYDROmorphONE 1 MG/ML SYG IV STA (15:45)
[2017-05-05] MEDS ORDERED: PIPER-TAZO 3.375 GM IV (PMX) 100 ML IVPB ONE (16:30)
--- NOTE | 2017-05-05 17:12 | RADRPT ---
PROCEDURE: Chest x-ray CLINICAL INDICATION: Preop TECHNIQUE: Chest single view COMPARISON: None FINDINGS: The heart is normal in size. The pulmonary vessels are normal in caliber. The lungs are clear. Th e costophrenic angles are sharp. The visualized bony thorax is unremarkable. IMPRESSION: No acute cardiopulmonary disease. RPTAT: HH .Almas Huerta MD, Date Time Electronically viewed and signed by .Almas Huerta MD, MD on 05/05/2017 17:11 .W/
--- NOTE | 2017-05-05 18:15 | CONS ---
Date/Time of Note Date/Time of Note DATE: 05/05/17 TIME: 18:15 Assessment/Plan Assessment/Plan Additional Assessment/Plan [facility] INPATIENT CONSULTATION NOTE DATE OF SERVICE: 05/05/2017 PLACE OF SERVICE: [facility], emergency department ASSESSMENT AND PLAN: A very-pleasant 61-year-old lady with comorbidities including BMI 27.6, presenting with a picture consistent with acute appendicitis , although there is a slight increased pretest probability for malignancy given her history of blood in the stool about 4 months ago and being told that she needs a colonoscopy. Fortunately, the patient appears to be medically stable enough that we can spend a bit of time investigating this further with help of our gastroenterology colleagues. If the patient deteriorates at any point, I plan on taking her to the operating room. In the meantime, if feasible, it may be better for the patient if she can have a colonoscopy or colonic evaluation of other means prior to undergoing an operative intervention. Discussed with patient and her and answered all questions. Patient and family appeared to understand and agreed with plans. With above assessment, I've recommended the followin. Admit to the hospital 2. N.p.o. 3. Intravenous fluids 4. Intravenous antimicrobials due to a colonic hanane 5. Gastroenterology consultation with consideration for colonoscopy 6. I will follow closely with you Thank you very much for having me involved in the care of this very pleasant patient and wonderful family. If you have any questions, please feel free to contact me at [phone]. Nature of presenting problem: High severity Please note that, given the multiple number of diagnoses or management options, the moderate amount and/or complexity of data needed to be reviewed, and high risk of complications and/or morbidity or mortality, this qualifies as high complexity type of decision-making. Disclaimers: 1. Inadvertent spelling and grammatical errors are likely due to electronic health record (EHR)/dictation software used and do not reflect on the quality of delivered patient care. 2. The electronic timestamp recorded on this note does not necessarily reflect the actual date and time of the visit or the service. 3. Portions of this note may have been created through electronic templates and computer algorithms that might bring in information either from the system or from other physicians and providers. Please note that such information may or may not contain errors, the occurrence of which are outside of my control. In general (but not always) this happens either in the beginning or at the end of the note. The portion of the note that I have created are generally done in 1 continuous block of text, flanked at the beginning and at the end by " ", and entered into one field in the EHR. 4. There may be other unanticipated errors in the note that are outside of my control. I can only attest to the portions of the note that I have created. Updated clinical summary: A very-pleasant 61-year-old lady with comorbidities including BMI 27.6, presenting with a picture consistent with acute appendicitis, although there is a slight increased pretest probability for malignancy given her history of blood in the stool about 4 months ago and being told that she needs a colonoscopy. Comorbidities: 1. BMI 27.6 2. Hypertension 3. GERD 4. Depression 5. Arthritis 6. Status post right knee arthroplasty 11/09/2015 7. Tendinitis left shoulder 8. C-sections (4) 9. Prediabetic 10. Daily smoker approximately 3-5 cigarettes per day CONSULTATION REQUESTED BY: Sharla Murphy MD HISTORY OF PRESENT ILLNESS: The patient is a very pleasant 61-year-old lady with above-mentioned comorbidities whom we were kindly asked consult regarding management of abdominal pain and concern for acute appendicitis. Pain started yesterday. Nausea included but no vomiting. No significant fevers or chills. Patient reports slight weight gain over the last 6 months. Had bloody bowel movement 4 months ago and was recommended to have evaluation with a colonoscopy. Last colonoscopy was 11 years ago. No recent colonoscopies. No other major complaints during my visit. Workup at also included elevated white blood cell count of 12. CT scan demonstrated dilated appendix with fecal matter within it and what appears to me to be inflammation and thickening around the appendiceal base with some lymphadenopathy along the ileocolic vessels. No free air. ALLERGIES: Sulfamethoxazole and trimethoprim (unknown reaction) MEDICATIONS Documented in the electronic records and reviewed by me. Please see the electronic records for details, as well as details for inpatient medications which were also reviewed by me. SOCIAL HISTORY: The patient lives with family. + Tob (Daily smoker approximately 3-5 cigarettes per day.);-ETOH;-IVDU FAMILY HISTORY: Diabetes and heart disease and Alzheimer's affecting mother. Brother with diabetes. There are no other significant medical, surgical or oncologic issues in the family as reported by the patient or reflected in the chart. REVIEW OF SYSTEMS: Other than mentioned above, there were no other pertinent positives or pertinent negatives in an otherwise complete 14 point review of systems. PHYSICAL EXAMINATION GENERAL: The patient appears to be a very pleasant lady of descent lying in bed, appearing stated age, and otherwise in no acute distress. BMI: 27.6 VITAL SIGNS: AVSS (please also see auto important data if available as well as the electronic records) HEENT: Normocephalic and atraumatic. Extraocular muscles and hearing are grossly intact bilaterally and symmetrically. Sclerae are nonicteric. Oral cavity is clear; oral mucosa appear to be pink and moist. Dentition: fair. NECK: Supple. There is no lymphadenopathy or JVD. There is no submental, submandibular or supraclavicular lymphadenopathy. CHEST: Rises symmetrically with each breath; patient is breathing comfortably. There are no audible wheezes, rales or rhonchi on the gross exam. HEART: Pulse is regular and palpable on the right wrist. Capillary refill is normal. Carotid pulses are palpable bilaterally and symmetrically in the neck. EXTREMITIES: Lower extremities contain no pitting edema around the ankles bilaterally and symmetrically. ABDOMEN: Abdomen is soft, minimally tender in the right lower quadrant and some in the right upper quadrant and nondistended. No evidence of ascites, organomegaly, caput medusae, engorged subcutaneous veins, or other abnormalities. There are no peritoneal signs or guarding. Previous incisions clean, dry, and intact without any evidence of obvious hernia, edema, discharge , or erythema. SKIN: Appears to be pink and feels warm to touch. NEUROLOGIC: Awake, alert, and follows commands appropriately. LABORATORY DATA: See below IMAGING: See electronic chart. Please note that I've personally reviewed all pertinent available images and I agree in general with their overall reported findings. Consultation Date/Type/Reason Admit Date/Time Social History Smoking Status: Never smoker Exam/Review of Systems Vital Signs Vitals Vital Signs Date Time Temp Pulse Resp B/P Pulse Ox O2 Delivery O2 Flow Rate FiO2 05/05/17 16:49 61 16 104/53 99 Room Air 05/05/17 11:29 99.5 Results Result Diagram: 05/05/17 1458 05/05/17 1458 Results 24 hrs Laboratory Tests Test 05/05/17 14:37 05/05/17 14:58 Bedside Urine pH (LAB) 7.5 Bedside Urine Protein (LAB) Negative Bedside Urine Glucose (UA) Negative Bedside Urine Ketones (LAB) Negative Bedside Urine Blood Trace-lysed H Bedside Urine Nitrite (LAB) Negative Bedside Urine Leukocyte Esterase (L Negative White Blood Count 12.4 #H Red Blood Count 4.78 # Hemoglobin 13.5 # Hematocrit 41.9 # Mean Corpuscular Volume 87.7 Mean Corpuscular Hemoglobin 28.2 L Mean Corpuscular Hemoglobin Concent 32.2 Red Cell Distribution Width 13.7 Platelet Count 318 Mean Platelet Volume 10.1 Neutrophils % 73.3 Lymphocytes % 17.4 Monocytes % 6.8 Eosinophils % 1.5 Basophils % 0.6 Nucleated Red Blood Cells % 0.0 Neutrophils # 9.1 H Lymphocytes # 2.2 Monocytes # 0.8 Eosinophils # 0.2 Basophils # 0.1 Nucleated Red Blood Cells # 0.0 Sodium Level 140 Potassium Level 3.8 Chloride Level 103 Carbon Dioxide Level 27 Anion Gap 14 Blood Urea Nitrogen 9 Creatinine 0.55 Glucose Level 95 Calcium Level 8.9 Total Bilirubin 0.2 Direct Bilirubin 0.00 Indirect Bilirubin 0.2 Aspartate Amino Transf (AST/SGOT) 19 Alanine Aminotransferase (ALT/SGPT) 34 Alkaline Phosphatase 106 Total Protein 7.3 Albumin 4.1 Globulin 3.20 Albumin/Globulin Ratio 1.28 Lipase 88 DOMINGA BYRNE M.D. May 05, 2017 18:15
[2017-05-05] MEDS: HYDROmorphONE 1 MG/ML SYG IV PRN (19:52)
[2017-05-05 20:30] VITALS: TEMP 98
[2017-05-05 21:00] VITALS: Ht 157.5 cm; Wt 74.1 kg
[2017-05-05 21:24] VITALS: BP 124/63; RESP 18
[2017-05-05] MEDS ORDERED: NACL 0.9% 3 ML SYG IV SCH (23:00)
[2017-05-06] MEDS: morphine 4 MG/ML VIAL IV PRN ×4 (00:23→16:24)
[2017-05-06] MEDS: DEXTROSE 5%-0.45% NACL 1,000 ML IV SCH ×5 (00:26→21:30)
[2017-05-06] MEDS ORDERED: PIPER-TAZO 3.375 GM IV (PMX) 100 ML IVPB SCH (02:00)
[2017-05-06 02:26] VITALS: BP 111/58; RESP 16
[2017-05-06] MEDS: PIPER-TAZO 3.375 GM IV (PMX) 100 ML IVPB SCH ×3 (02:27→21:52)
--- NOTE | 2017-05-06 06:46 | HP ---
Date/Time of Note Date/Time of Note DATE: 05/06/17 TIME: 06:41 Assessment/Plan VTE Prophylaxis VTE Prophylaxis Intervention: SCD's Lines/Catheters IV [facility] (from [facility]): Peripheral IV Urinary Cath still in place: No Assessment/Plan Assessment/Plan 1. Acute appendicitis - Keep n.p.o. with IV fluid - Pain medication as needed - IV antibiotic - Follow-up surgery recommendation 2. Rule out GI bleed -Patient with reported history of positive FOBT -will place a GI consult -Check FOBT 3. Leukocytosis, 2/2 acute appendicitis -See #1 HPI/ROS Admit Date/Time Admit Date/Time Hx of Present Illness This is a 61-year-old female with no significant past medical history who presented to the emergency department complaining of abdominal pain 4 days. Pain is mainly localized in the right lower quadrant area and has been associated with nausea and vomiting, described as nonbloody nonbilious. When presented to the ER CT abdomen/pelvis shows findings consistent with acute appendicitis. Patient has already been seen and evaluated by the on-call surgeon. Patient also with recent history of positive FOBT. PMH/Family/Social Social History Smoking Status: Current every day smoker Exam/Review of Systems Vital Signs Vitals Vital Signs Date Time Temp Pulse Resp B/P Pulse Ox O2 Delivery O2 Flow Rate FiO2 05/06/17 02:26 98.3 60 16 111/58 98 05/05/17 20:30 Nasal Cannula 2.0 Intake and Output 05/05/17 05/05/17 05/06/17 15:00 23:00 07:00 Intake Total 500 ml Balance 500 ml Exam Constitutional: other (No acute distress) Head: atraumatic, normocephalic Eyes: EOMI, PERRL Respiratory: clear to auscultation, normal air movement Cardiovascular: regular rate and rhythm Gastrointestinal: soft, tender Extremities: normal pulses Labs Result Diagram: 05/06/17 0435 05/06/17434 Medications Medications Current Medications Hydromorphone HCl 1 mg 1 mg Q3 PRN IV SEVERE PAIN LEVEL 7-10 Last administered on 05/05/17t 19:52; Admin Dose 1 MG; Start 05/05/17 at 20:00 Dextrose/Sodium Chloride (D5-1/2ns) 1,000 ml @ 100 mls/hr Q10H IV Last administered on 05/06/17 00:26; Admin Dose 100 MLS/HR; Start 05/05/17 at 22: 37 Ondansetron HCl (Zofran Inj) 4 mg Q6H PRN IV NAUSEA AND/OR VOMITING; Start at 23:00 Morphine Sulfate 3 mg 3 mg Q4H PRN IV pain Last administered on 05/06/17 05: 05; Admin Dose 3 MG; Start 05/05/17 at 23:00 Piperacillin Sod/ Tazobactam Sod (Zosyn 3.375gm/ 100 ml (Pmx)) 100 ml @ 200 mls /hr Q8 IVPB Last administered on 05/06/17 02:27; Admin Dose 200 MLS/HR; Start 05/06/17 at 02:00 Influenza Virus Vaccine (Fluzone) 0.5 ml ONCE ONCE IM* ; Start 05/07/17 at 09: 00; Stop 05/07/17 at 09:01 SONIA SEQUEIRA MD May 06, 2017 06:46
[2017-05-06] MEDS ORDERED: VITAMIN A & D 5 GM OINT PACKET TOP ONE (06:56)
[2017-05-06] MEDS: ONDANSETRON 4 MG INJ IV PRN ×2 (08:19→16:23)
[2017-05-06 08:44] VITALS: BP 119/66; RESP 18
--- NOTE | 2017-05-06 09:47 | PN ---
Date/Time of Note Date/Time of Note DATE: 05/06/17 TIME: 09:44 Assessment/Plan VTE Prophylaxis VTE Prophylaxis Intervention: ambulation Lines/Catheters [facility] Type (from [facility]): Peripheral IV Urinary Cath still in place: No Assessment/Plan Chief Complaint/Hosp Course 61 year old female with a history of rectal bleed, presented to the emergency room for evaluation of abdominal pain 4 day duration. 1. Acute appendicitis -N.P.O, IV fluids, IV antibiotics and pain control - Follow-up surgery recommendation 2. History of remote rectal bleed. Currently denies any bleeding episodes. -GI consult has been requested for possible colonoscopy as in-house. -Check FOBT-pending 3. Leukocytosis, 2/2 acute appendicitis. Resolved -Treatment as per #1. Patient was seen in collaboration with . Problems: Subjective 24 Hr Interval Summary Free Text/Dictation Patient continued to report right-sided and epigastric abdominal pain. She is afebrile. Exam/Review of Systems Vital Signs Vitals Vital Signs Date Time Temp Pulse Resp B/P Pulse Ox O2 Delivery O2 Flow Rate FiO2 05/06/17 08:44 98.8 60 18 119/66 92 05/05/17 20:30 Nasal Cannula 2.0 Intake and Output 05/05/17 05/05/17 05/06/17 15:00 23:00 07:00 Intake Total 500 ml Balance 500 ml Exam General: Well developed,adequately built, not in any acute distress . HEENT: Normocephalic, Atraumatic, No laceration or hematoma; Eyes: PEERL, Conjunctiva clear, Anicteric sclera Neck: Supple without any lymphadenopathy, nontender, no JVD, no carotid bruits, trachea midline, no thyromegaly Cardiac: S1, S2 auscultated, regular rhythm and rate, no mumurs or gallop Pulmonary: Normal respiratory effort. Chest clear to auscultation bilaterally, no adventitious breath sounds GI: Tenderness to RUQ/epigastric area. Abdomen normal to inspection. Soft, non - distended, no masses, no rebound tenderness or guarding. Bowel sounds active on all four quadrants Genitourinary: Deferred Extremities: No cyanosis, clubbing, or edema. Pulses [2+] bilaterally. Full ROM on all four extremities. No focal weakness appreciated. Neurologic: Alert to person, place, time, and situation. Affect appropriate, intact sensation. Skin: Clean,dry, and intact. No ecchymosis, no rashes, or lesions Results Result Diagram: 05/06/17 0435 05/06/17 0435 Results 24 hrs Laboratory Tests Test 05/05/17 14:37 05/05/17 14:58 05/06/17 04:35 Bedside Urine pH (LAB) 7.5 Bedside Urine Protein (LAB) Negative Bedside Urine Glucose (UA) Negative Bedside Urine Ketones (LAB) Negative Bedside Urine Blood Trace-lysed H Bedside Urine Nitrite (LAB) Negative Bedside Urine Leukocyte Esterase (L Negative White Blood Count 12.4 #H 9.1 # Red Blood Count 4.78 # 4.35 Hemoglobin 13.5 # 12.5 Hematocrit 41.9 # 39.2 Mean Corpuscular Volume 87.7 90.1 Mean Corpuscular Hemoglobin 28.2 L 28.7 L Mean Corpuscular Hemoglobin Concent 32.2 31.9 L Red Cell Distribution Width 13.7 13.6 Platelet Count 318 294 Mean Platelet Volume 10.1 10.3 Neutrophils % 73.3 68.9 Lymphocytes % 17.4 21.0 Monocytes % 6.8 7.0 Eosinophils % 1.5 2.3 Basophils % 0.6 0.6 Nucleated Red Blood Cells % 0.0 0.0 Neutrophils # 9.1 H 6.2 Lymphocytes # 2.2 1.9 Monocytes # 0.8 0.6 Eosinophils # 0.2 0.2 Basophils # 0.1 0.1 Nucleated Red Blood Cells # 0.0 0.0 Sodium Level 140 141 Potassium Level 3.8 4.4 Chloride Level 103 105 Carbon Dioxide Level 27 33 H Anion Gap 14 7 L Blood Urea Nitrogen 9 10 Creatinine 0.55 0.68 Glucose Level 95 117 Calcium Level 8.9 8.8 Total Bilirubin 0.2 0.7 Direct Bilirubin 0.00 0.00 Indirect Bilirubin 0.2 0.7 Aspartate Amino Transf (AST/SGOT) 19 20 Alanine Aminotransferase (ALT/SGPT) 34 29 Alkaline Phosphatase 106 83 Total Protein 7.3 6.4 Albumin 4.1 3.2 L Globulin 3.20 3.20 Albumin/Globulin Ratio 1.28 1.00 Lipase 88 Hemoglobin A1c 5.7 Phosphorus Level 4.7 Magnesium Level 2.1 Medications Medications Current Medications Hydromorphone HCl 1 mg 1 mg Q3 PRN IV SEVERE PAIN LEVEL 7-10 Last administered on 05/05/17 19:52; Admin Dose 1 MG; Start 05/05/17 at 20:00 Dextrose/Sodium Chloride (D5-1/2ns) 1,000 ml @ 100 mls/hr Q10H IV Last administered on 05/06/17 00:26; Admin Dose 100 MLS/HR; Start 05/05/17 at 22: 37 Ondansetron HCl (Zofran Inj) 4 mg Q6H PRN IV NAUSEA AND/OR VOMITING Last administered on 05/06/17 08:19; Admin Dose 4 MG; Start 05/05/17 at 23:00 Morphine Sulfate 3 mg 3 mg Q4H PRN IV pain Last administered on 05/06/17 09: 02; Admin Dose 3 MG; Start 05/05/17 at 23:00 Piperacillin Sod/ Tazobactam Sod (Zosyn 3.375gm/ 100 ml (Pmx)) 100 ml @ 200 mls /hr Q8 IVPB Last administered on 05/06/17 02:27; Admin Dose 200 MLS/HR; Start 05/06/17 at 02:00 Influenza Virus Vaccine (Fluzone) 0.5 ml ONCE ONCE IM* ; Start 05/07/17 at 09: 00; Stop 05/07/17 at 09:01 JOHN GARG NP May 06, 2017 09:47
--- NOTE | 2017-05-06 10:14 | CONS ---
Date/Time of Note Date/Time of Note DATE: 05/06/17 TIME: 09:50 Assessment/Plan Assessment/Plan Chief Complaint/Hosp Course Summary Assessment and Plan: Assessment: Acute appendicitis Plan: Patient considered high risk for colonoscopy due to possible risk for perforation of appendix If inflammation decreases will consider colonoscopy in the next 72 hours to 1 week Continue current treatment regimen She was seen in collaboration with Dr. Dos Santos Chief Complaint/Reason for Visit: Acute appendicitis History of Present Illness: This is a pleasant 61-year-old female with multiple comorbidities. Admitted to the hospital for umbilical pain radiating to right lower quadrant, CAT scan abdomen pelvis consistent with acute appendicitis, without perforation or focal fluid collections, however, there is adjacent inflammatory changes. Per the request of our surgical colleagues, we are here to assess the need for colonoscopy. At the time of examination patient denies nausea, vomiting, and improvement of abdominal pain with medication. She denies unintentional weight loss, hematemesis, or hematochezia. She does note 1 episode of diarrhea with the onset of symptoms about 5 days ago. She did have rectal bleeding x1 on toilet paper and small amount on stool., about 4 months ago, no further episodes noted. Her last colonoscopy was 11-12 years ago showing hemorrhoids otherwise negative. There is no family history of colon cancer she is aware of. With the patient's current presentation we recommend monitoring patient for decrease inflammation for the next 72 hours to 1 week before proceeding with colonoscopy, as patient is considered high risk for perforation. Past Medical History: Hypertension Prediabetes GERD Depression Osteoporosis Colonoscopy 11-12 years ago, hemorrhoids otherwise negative Allergies: Sulfamethoxazole Trimethoprim Family History: No family history of colon cancer Social History: Daily smoker 2-3 cigarettes per day Denies alcohol use Denies drug use Problems: Consultation Date/Type/Reason Admit Date/Time Date of Consultation: May 06, 2017 Type of Consultation: GI Reason for Consultation Consideration for colonoscopy in view of inflammation to the cecum Constitutional: no complaints Eyes: no complaints ENT: no complaints Respiratory: no complaints Cardiovascular: no complaints Gastrointestinal: decreased appetite, nausea, pain, No constipation, No diarrhea, No flatus, No vomiting Genitourinary: no complaints Skin: no complaints Past Medical History Medical History: GERD, hypertension, other (Depression, prediabetes, osteoporosis) Past Surgical History Past Surgical Hx: other (Multiple orthopedic surgeries, 4) Family History Significant Family History: other (No family history of colon cancer) Social History Alcohol Use: none Smoking Status: Current every day smoker Drug Use: none Exam/Review of Systems Vital Signs Vitals Vital Signs Date Time Temp Pulse Resp B/P Pulse Ox O2 Delivery O2 Flow Rate FiO2 05/06/17 08:44 98.8 60 18 119/66 92 05/05/17 20:30 Nasal Cannula 2.0 Intake and Output 05/05/17 05/05/17 05/06/17 15:00 23:00 07:00 Intake Total 500 ml Balance 500 ml Exam Constitutional: alert, oriented Psych: no complaints Head: atraumatic, normocephalic Eyes: nl conjunctiva ENMT: nl external ears & nose, nl lips & teeth Neck: non-tender, supple Respiratory: clear to auscultation, normal air movement Cardiovascular: nl pulses, regular rate and rhythm Gastrointestinal: bowel sounds, rebound or guarding, surgical scars, tender, No ascites, No distended, No firm, No hepatomegaly, No mass, No splenomegaly Extremities: normal pulses Skin: nl turgor Results Result Diagram: 05/06/17 0435 05/06/17 0435 Results 24 hrs Laboratory Tests Test 05/05/17 14:37 05/05/17 14:58 05/06/17 04:35 Bedside Urine pH (LAB) 7.5 Bedside Urine Protein (LAB) Negative Bedside Urine Glucose (UA) Negative Bedside Urine Ketones (LAB) Negative Bedside Urine Blood Trace-lysed H Bedside Urine Nitrite (LAB) Negative Bedside Urine Leukocyte Esterase (L Negative White Blood Count 12.4 #H 9.1 # Red Blood Count 4.78 # 4.35 Hemoglobin 13.5 # 12.5 Hematocrit 41.9 # 39.2 Mean Corpuscular Volume 87.7 90.1 Mean Corpuscular Hemoglobin 28.2 L 28.7 L Mean Corpuscular Hemoglobin Concent 32.2 31.9 L Red Cell Distribution Width 13.7 13.6 Platelet Count 318 294 Mean Platelet Volume 10.1 10.3 Neutrophils % 73.3 68.9 Lymphocytes % 17.4 21.0 Monocytes % 6.8 7.0 Eosinophils % 1.5 2.3 Basophils % 0.6 0.6 Nucleated Red Blood Cells % 0.0 0.0 Neutrophils # 9.1 H 6.2 Lymphocytes # 2.2 1.9 Monocytes # 0.8 0.6 Eosinophils # 0.2 0.2 Basophils # 0.1 0.1 Nucleated Red Blood Cells # 0.0 0.0 Sodium Level 140 141 Potassium Level 3.8 4.4 Chloride Level 103 105 Carbon Dioxide Level 27 33 H Anion Gap 14 7 L Blood Urea Nitrogen 9 10 Creatinine 0.55 0.68 Glucose Level 95 117 Calcium Level 8.9 8.8 Total Bilirubin 0.2 0.7 Direct Bilirubin 0.00 0.00 Indirect Bilirubin 0.2 0.7 Aspartate Amino Transf (AST/SGOT) 19 20 Alanine Aminotransferase (ALT/SGPT) 34 29 Alkaline Phosphatase 106 83 Total Protein 7.3 6.4 Albumin 4.1 3.2 L Globulin 3.20 3.20 Albumin/Globulin Ratio 1.28 1.00 Lipase 88 Hemoglobin A1c 5.7 Phosphorus Level 4.7 Magnesium Level 2.1 Medications Medications Current Medications Hydromorphone HCl 1 mg 1 mg Q3 PRN IV SEVERE PAIN LEVEL 7-10 Last administered on 05/05/17 19:52; Admin Dose 1 MG; Start 05/05/17 at 20:00 Dextrose/Sodium Chloride (D5-1/2ns) 1,000 ml @ 100 mls/hr Q10H IV Last administered on 05/06/17 00:26; Admin Dose 100 MLS/HR; Start 05/05/17 at 22: 37 Ondansetron HCl (Zofran Inj) 4 mg Q6H PRN IV NAUSEA AND/OR VOMITING Last administered on 05/06/17 08:19; Admin Dose 4 MG; Start 05/05/17 at 23:00 Morphine Sulfate 3 mg 3 mg Q4H PRN IV pain Last administered on 05/06/17 09: 02; Admin Dose 3 MG; Start 05/05/17 at 23:00 Piperacillin Sod/ Tazobactam Sod (Zosyn 3.375gm/ 100 ml (Pmx)) 100 ml @ 200 mls /hr Q8 IVPB Last administered on 05/06/17 02:27; Admin Dose 200 MLS/HR; Start 05/06/17 at 02:00 Influenza Virus Vaccine (Fluzone) 0.5 ml ONCE ONCE IM* ; Start 05/07/17 at 09: 00; Stop 05/07/17 at 09:01 Copies To: CC: BILLY DOS SANTOS MD, VICTORIA May 06, 2017 10:04
[2017-05-06] MEDS: ACETAMINOPHEN 325 MG TAB PO PRN (12:13)
[2017-05-06 14:00] VITALS: BP 114/63; PULSE 66; RESP 17
[2017-05-06 15:00] VITALS: BP 113/64; RESP 18
--- NOTE | 2017-05-06 18:28 | PN ---
Date/Time of Note Date/Time of Note DATE: 05/06/17 TIME: 18:27 Assessment/Plan Lines/Catheters IV Catheter Type (from [facility]): Peripheral IV Jacobs in Place (from [facility]): No Assessment/Plan Assessment/Plan [facility] Progress Note Date of Service: 05/06/2017 Location of Service: Fourth floor Today's Assessment & Plan: Overall stable. Question of acute appendicitis versus right colon malignancy. Despite patient's abdominal pain which seems to have improved since admission, her other parameters are completely normal and for this reason we have a bit of time to investigate this issue further. I discussed the case yesterday and this morning with Dr. Dos Santos and our plan at this point is to see if we can feed the patient and demonstrated further clinical stability in order to hopefully be able to prep her and to perform colonoscopy. Obviously, if the patient does not tolerate her diet or decompensates, we will change that stance and go emergently to the operating room. My index of suspicion is much higher than normal that this is not a normal appendicitis and for this reason it justifies above approach. Discussed at length with patient and her and answered all questions. Patient and family appear to understand and agreed with plans. With above assessment, I've recommended the following for today: 1. Regular diet attempt 2. Carefully in-house monitoring 3. Strict I's and O's 4. Labs in a.m. Thank you again for your great care of this very pleasant patient and wonderful family. If there are any questions, please feel free to call me at [phone]. Nature of presenting problem: High severity Please note that, given the multiple number of diagnoses or management options, the moderate amount and/or complexity of data needed to be reviewed, and moderate to high risk of complications and/or morbidity or mortality, this qualifies as moderate complexity type of decision-making. Disclaimers: 1. Inadvertent spelling and grammatical errors are likely due to electronic health record (EHR)/dictation software used and do not reflect on the quality of delivered patient care. 2. The electronic timestamp recorded on this note does not necessarily reflect the actual date and time of the visit or the service. 3. Portions of this note may have been created through electronic templates and computer algorithms that might bring in information either from the system or from other physicians and providers. Please note that such information may or may not contain errors, the occurrence of which are outside of my control. In general (but not always) this happens either in the beginning or at the end of the note. The portion of the note that I have created are generally done in 1 continuous block of text, flanked at the beginning and at the end by " ", and entered into one field in the EHR. 4. There may be other unanticipated errors in the note that are outside of my control. I can only attest to the portions of the note that I have created. Updated clinical summary: A very-pleasant 61-year-old lady with comorbidities including BMI 27.6, presenting with a picture consistent with acute appendicitis, although there is a slight increased pretest probability for malignancy given her history of blood in the stool about 4 months ago and being told that she needs a colonoscopy. Comorbidities: 1. BMI 27.6 2. Hypertension 3. GERD 4. Depression 5. Arthritis 6. Status post right knee arthroplasty 11/09/2015 7. Tendinitis left shoulder 8. C-sections (4) 9. Prediabetic 10. Daily smoker approximately 3-5 cigarettes per day Subjective: No major events or complaints other than minor abdominal pain which appears to be improved over the course of the last 24 hours; pain appears to be controlled with medications. No nausea or vomiting reported no. No shortness of breath or chest pain. + bowel activity; activity Objective: Vitals: See below Exam: GENERAL: On exam, the patient was laying in bed and appeared to be comfortable and in no acute distress. ABDOMEN: Soft, minimal tenderness in the right lower quadrant and some in the right upper quadrant and nondistended. There are no peritoneal signs or guarding. SKIN: Skin appears to be pink and feels warm to touch. NEUROLOGIC: Patient is awake, alert, and follows commands appropriately. Exam/Review of Systems Vital Signs Vitals Vital Signs Date Time Temp Pulse Resp B/P Pulse Ox O2 Delivery O2 Flow Rate FiO2 05/06/17 15:00 98.1 60 18 113/64 93 05/06/17 14:00 Room Air 05/05/17 20:30 2.0 Intake and Output 05/05/17 05/05/17 05/06/17 15:00 23:00 07:00 Intake Total 500 ml Balance 500 ml Results Result Diagram: 05/06/17 0435 05/06/17 0435 DOMINGA BYRNE M.D. May 06, 2017 18:28
[2017-05-06 20:16] VITALS: BP 122/68; RESP 18
[2017-05-07] MEDS: DEXTROSE 5%-0.45% NACL 1,000 ML IV SCH ×3 (01:01→21:35)
[2017-05-07] MEDS: ONDANSETRON 4 MG INJ IV PRN ×2 (01:05→10:28)
[2017-05-07] MEDS: ACETAMINOPHEN 325 MG TAB PO PRN (01:06)
[2017-05-07 01:28] VITALS: BP 102/55; RESP 18
[2017-05-07] MEDS: PIPER-TAZO 3.375 GM IV (PMX) 100 ML IVPB SCH ×3 (06:05→21:35)
[2017-05-07 08:30] VITALS: BP 122/66; RESP 18
[2017-05-07] MEDS ORDERED: INFLUENZA VIRUS VACCINE 0.5 ML (DISPENSING) IM* ONE (09:00)
[2017-05-07] MEDS: HYDROmorphONE 1 MG/ML SYG IV PRN ×3 (10:28→21:41)
--- NOTE | 2017-05-07 10:49 | PN ---
Date/Time of Note Date/Time of Note DATE: 05/07/17 TIME: 10:44 Assessment/Plan VTE Prophylaxis VTE Prophylaxis Intervention: ambulation Lines/Catheters IV Catheter Type (from [facility]): Peripheral IV Urinary Cath still in place: No Assessment/Plan Chief Complaint/Hosp Course 61 year old female with a history of rectal bleed, presented to the emergency room for evaluation of abdominal pain 4 day duration. 1. Abdominal pain with documented acute appendicitis per imaging studies. -Surgery evaluation appreciated. At this time, recommendation is to have patient to undergo colonoscopy first prior to any surgical intervention as suspicion for colon malignancy is high per surgery colleagues. -Continue IV fluids, antibiotics and diet per surgery. 2. History of remote rectal bleed. Patient had a bowel movement, no melena or hematochezia. Patient denied any weight loss, loss of appetite. -As per surgery recommendation,suspicion for colon malignancy is high- therefore GI consult has been requested for possible colonoscopy as in-house. -Check FOBT-pending 3. Leukocytosis, 2/2 acute appendicitis. Resolved -Treatment as per #1. Plan: Follow-up with GI and surgery recommendations. Patient was seen in collaboration with . Problems: Subjective 24 Hr Interval Summary Free Text/Dictation Overall, patient with improved abdominal pain. She remains afebrile. Patient has been started on a diet per surgery recommendation Exam/Review of Systems Vital Signs Vitals Vital Signs Date Time Temp Pulse Resp B/P Pulse Ox O2 Delivery O2 Flow Rate FiO2 05/07/17 08:30 98.4 55 18 122/66 96 05/06/17 14:00 Room Air 05/05/17 20:30 2.0 Intake and Output 05/06/17 05/06/17 05/07/17 15:00 23:00 07:00 Intake Total 600 ml 1150 ml Output Total 1000 ml 700 ml Balance -400 ml 450 ml Exam General: Well developed,adequately built, not in any acute distress . HEENT: Normocephalic, Atraumatic, No laceration or hematoma; Eyes: PEERL, Conjunctiva clear, Anicteric sclera Neck: Supple without any lymphadenopathy, nontender, no JVD, no carotid bruits, trachea midline, no thyromegaly Cardiac: S1, S2 auscultated, regular rhythm and rate, no mumurs or gallop Pulmonary: Normal respiratory effort. Chest clear to auscultation bilaterally, no adventitious breath sounds GI: Tenderness to RUQ/epigastric area-improved. Abdomen normal to inspection. Soft, non- distended, no masses, no rebound tenderness or guarding. Bowel sounds active on all four quadrants Genitourinary: Deferred Extremities: No cyanosis, clubbing, or edema. Pulses [2+] bilaterally. Full ROM on all four extremities. No focal weakness appreciated. Neurologic: Alert to person, place, time, and situation. Affect appropriate, intact sensation. Skin: Clean,dry, and intact. No ecchymosis, no rashes, or lesions Results Result Diagram: 05/07/17 0441 05/07/171 Results 24 hrs Laboratory Tests Test 05/07/17 04:41 White Blood Count 5.7 # Red Blood Count 4.32 Hemoglobin 12.3 Hematocrit 38.5 Mean Corpuscular Volume 89.1 Mean Corpuscular Hemoglobin 28.5 L Mean Corpuscular Hemoglobin Concent 31.9 L Red Cell Distribution Width 13.3 Platelet Count 275 Mean Platelet Volume 10.0 Neutrophils % 54.5 Lymphocytes % 30.3 Monocytes % 9.9 Eosinophils % 4.2 Basophils % 0.7 Nucleated Red Blood Cells % 0.0 Neutrophils # 3.1 Lymphocytes # 1.7 Monocytes # 0.6 Eosinophils # 0.2 Basophils # 0.0 Nucleated Red Blood Cells # 0.0 Sodium Level 140 Potassium Level 4.0 Chloride Level 107 Carbon Dioxide Level 26 Anion Gap 11 Blood Urea Nitrogen 11 Creatinine 0.61 Glucose Level 113 Calcium Level 8.4 Magnesium Level 2.2 Medications Medications Current Medications Hydromorphone HCl 1 mg 1 mg Q3 PRN IV SEVERE PAIN LEVEL 7-10 Last administered on 05/07/17 10:28; Admin Dose 1 MG; Start 05/05/17 at 20:00 Dextrose/Sodium Chloride (D5-1/2ns) 1,000 ml @ 100 mls/hr Q10H IV Last administered on 05/07/17 10:29; Admin Dose 100 MLS/HR; Start 05/05/17 at 22: 37 Ondansetron HCl (Zofran Inj) 4 mg Q6H PRN IV NAUSEA AND/OR VOMITING Last administered on 05/07/17 10:28; Admin Dose 4 MG; Start 10/23/17 at 23:00 Morphine Sulfate 3 mg 3 mg Q4H PRN IV pain Last administered on 05/06/17 16: 24; Admin Dose 3 MG; Start 05/05/17 at 23:00 Piperacillin Sod/ Tazobactam Sod (Zosyn 3.375gm/ 100 ml (Pmx)) 100 ml @ 200 mls /hr Q8 IVPB Last administered on 05/07/17 06:05; Admin Dose 200 MLS/HR; Start 05/06/17 at 02:00 Acetaminophen (Tylenol Tab) 650 mg Q6H PRN PO PAIN AND OR ELEVATED TEMP Last administered on 05/07/17 01:06; Admin Dose 650 MG; Start 05/06/17 at 12:30 JOHN GARG NP May 07, 2017 10:49
--- NOTE | 2017-05-07 10:53 | PN ---
Date/Time of Note Date/Time of Note DATE: 05/07/17 TIME: 10:49 Assessment/Plan VTE Prophylaxis VTE Prophylaxis Intervention: ambulation, SCD's Lines/Catheters IV C[facility]ter Type (from [facility]): Peripheral IV Urinary Cath still in place: No Assessment/Plan Chief Complaint/Hosp Course Summary Assessment and Plan: Assessment: Acute appendicitis Plan: Plan for trial of regular diet- with close monitoring Plan is to see if patient is clinically stable for colonoscopy Concern for colon ca- will order CEA She was seen in collaboration with Dr. Dos Santos Subjective: Course reviewed with nursing staff Patient interviewed and examined All labs, imaging and other results reviewed The patient so far tolerating diet well denies nausea or vomiting. Abdominal pain controlled with medication. Bm today no melena or BRBPR, noted. Problems: Exam/Review of Systems Vital Signs Vitals Vital Signs Date Time Temp Pulse Resp B/P Pulse Ox O2 Delivery O2 Flow Rate FiO2 05/07/17 08:30 98.4 55 18 122/66 96 05/06/17 14:00 Room Air 05/05/17 20:30 2.0 Intake and Output 05/06/17 05/06/17 05/07/17 15:00 23:00 07:00 Intake Total 600 ml 1150 ml Output Total 1000 ml 700 ml Balance -400 ml 450 ml Exam Constitutional: alert, obese, oriented Psych: no complaints Head: atraumatic, normocephalic Eyes: nl conjunctiva ENMT: nl external ears & nose, nl lips & teeth Neck: non-tender, supple Respiratory: clear to auscultation Cardiovascular: regular rate and rhythm Gastrointestinal: bowel sounds, rebound or guarding, soft, tender, No ascites, No distended, No firm, No hepatomegaly, No mass, No splenomegaly Results Result Diagram: 05/07/1744005/07/17440 Results 24 hrs Laboratory Tests Test 05/07/17 04:41 White Blood Count 5.7 # Red Blood Count 4.32 Hemoglobin 12.3 Hematocrit 38.5 Mean Corpuscular Volume 89.1 Mean Corpuscular Hemoglobin 28.5 L Mean Corpuscular Hemoglobin Concent 31.9 L Red Cell Distribution Width 13.3 Platelet Count 275 Mean Platelet Volume 10.0 Neutrophils % 54.5 Lymphocytes % 30.3 Monocytes % 9.9 Eosinophils % 4.2 Basophils % 0.7 Nucleated Red Blood Cells % 0.0 Neutrophils # 3.1 Lymphocytes # 1.7 Monocytes # 0.6 Eosinophils # 0.2 Basophils # 0.0 Nucleated Red Blood Cells # 0.0 Sodium Level 140 Potassium Level 4.0 Chloride Level 107 Carbon Dioxide Level 26 Anion Gap 11 Blood Urea Nitrogen 11 Creatinine 0.61 Glucose Level 113 Calcium Level 8.4 Magnesium Level 2.2 Medications Medications Current Medications Hydromorphone HCl 1 mg 1 mg Q3 PRN IV SEVERE PAIN LEVEL 7-10 Last administered on 05/07/17 10:28; Admin Dose 1 MG; Start 05/05/17 at 20:00 Dextrose/Sodium Chloride (D5-1/2ns) 1,000 ml @ 100 mls/hr Q10H IV Last administered on 05/07/17 10:29; Admin Dose 100 MLS/HR; Start 05/05/17 at 22: 37 Ondansetron HCl (Zofran Inj) 4 mg Q6H PRN IV NAUSEA AND/OR VOMITING Last administered on 05/07/17 10:28; Admin Dose 4 MG; Start 05/05/17 at 23:00 Morphine Sulfate 3 mg 3 mg Q4H PRN IV pain Last administered on 05/06/17 16: 24; Admin Dose 3 MG; Start 05/05/17 at 23:00 Piperacillin Sod/ Tazobactam Sod (Zosyn 3.375gm/ 100 ml (Pmx)) 100 ml @ 200 mls /hr Q8 IVPB Last administered on 05/07/17 06:05; Admin Dose 200 MLS/HR; Start 05/06/17 at 02:00 Acetaminophen (Tylenol Tab) 650 mg Q6H PRN PO PAIN AND OR ELEVATED TEMP Last administered on 05/07/17 01:06; Admin Dose 650 MG; Start 05/06/17 at 12:30 SIDRA DE LA TORRE May 07, 2017 10:53
--- NOTE | 2017-05-07 13:34 | PN ---
Date/Time of Note Date/Time of Note DATE: 05/07/17 TIME: 13:31 Assessment/Plan Lines/Catheters IV Catheter Type (from [facility]): Peripheral IV Jacobs in Place (from [facility]): No Assessment/Plan Assessment/Plan [facility] Progress Note Date of Service: 05/07/2017 Location of Service: Fourth floor Today's Assessment & Plan: Overall stable. Question of acute appendicitis versus right colon malignancy. Patient seems to be clinically stable and we are still trying to get her to possibly have a colonoscopy before operative intervention. Discussed in detail with the patient and with her daughter and answered all questions. Also contacted and left a message for Dr. Dos Santos, who I have been in close contact with regarding the management decision making. Patient and family appeared to understand and agreed with plans. With above assessment, I've recommended the following for today: 1. Cont regular diet 2. Carefully in-house monitoring 3. Strict I's and O's 4. Labs in a.m. 5. Possible bowel prep if ordered by Dr. Dos Santos for potential colonoscopy Thank you again for your great care of this very pleasant patient and wonderful family. If there are any questions, please feel free to call me at [phone]. Nature of presenting problem: High severity Please note that, given the multiple number of diagnoses or management options, the moderate amount and/or complexity of data needed to be reviewed, and moderate to high risk of complications and/or morbidity or mortality, this qualifies as moderate complexity type of decision-making. Disclaimers: 1. Inadvertent spelling and grammatical errors are likely due to electronic health record (EHR)/dictation software used and do not reflect on the quality of delivered patient care. 2. The electronic timestamp recorded on this note does not necessarily reflect the actual date and time of the visit or the service. 3. Portions of this note may have been created through electronic templates and computer algorithms that might bring in information either from the system or from other physicians and providers. Please note that such information may or may not contain errors, the occurrence of which are outside of my control. In general (but not always) this happens either in the beginning or at the end of the note. The portion of the note that I have created are generally done in 1 continuous block of text, flanked at the beginning and at the end by " ", and entered into one field in the EHR. 4. There may be other unanticipated errors in the note that are outside of my control. I can only attest to the portions of the note that I have created. Updated clinical summary: A very-pleasant 61-year-old lady with comorbidities including BMI 27.6, presenting with a picture consistent with acute appendicitis, although there is a slight increased pretest probability for malignancy given her history of blood in the stool about 4 months ago and being told that she needs a colonoscopy. Comorbidities: 1. BMI 27.6 2. Hypertension 3. GERD 4. Depression 5. Arthritis 6. Status post right knee arthroplasty 11/09/2015 7. Tendinitis left shoulder 8. C-sections (4) 9. Prediabetic 10. Daily smoker approximately 3-5 cigarettes per day Subjective: No major events or complaints other than minor abdominal pain which appears to be still improved over the course of the last 24 hours compared to admission and yesterday; pain appears to be controlled with medications. No nausea or vomiting reported no. No shortness of breath or chest pain. + bowel activity; activity Objective: Vitals: See below Exam: GENERAL: On exam, the patient was laying in bed and appeared to be comfortable and in no acute distress. ABDOMEN: Soft, minimal tenderness in the right lower quadrant and some in the right upper quadrant and nondistended. There are no peritoneal signs or guarding. SKIN: Skin appears to be pink and feels warm to touch. NEUROLOGIC: Patient is awake, alert, and follows commands appropriately. Exam/Review of Systems Vital Signs Vitals Vital Signs Date Time Temp Pulse Resp B/P Pulse Ox O2 Delivery O2 Flow Rate FiO2 05/07/17 08:30 98.4 55 18 122/66 96 05/06/17 14:00 Room Air 05/05/17 20:30 2.0 Intake and Output 05/06/17 05/06/17 05/07/17 15:00 23:00 07:00 Intake Total 600 ml 1150 ml Output Total 1000 ml 700 ml Balance -400 ml 450 ml Results Result Diagram: 05/07/17 0441 05/07/17 0441 DOMINGA BYRNE M.D. May 07, 2017 13:34
[2017-05-07] MEDS ORDERED: BARIUM SULF 2% 450 ML BTL (BERRY SMOOTHIE) PO SCH (16:30)
[2017-05-07 20:11] VITALS: BP 136/72; RESP 20
[2017-05-08] VITALS (21 sets, daily range): BP systolic 113–158; BP diastolic 59–81; PULSE 54–72; RESP 15–23
[2017-05-08] MEDS: DEXTROSE 5%-0.45% NACL 1,000 ML IV SCH ×3 (00:37→14:15)
[2017-05-08] MEDS: PIPER-TAZO 3.375 GM IV (PMX) 100 ML IVPB SCH ×2 (05:19→14:13)
[2017-05-08] MEDS: HYDROmorphONE 1 MG/ML SYG IV PRN ×3 (07:35→20:42)
[2017-05-08] MEDS ORDERED: DIATRIZOATE MEGLUMINE 300 ML BTL UR ONE (08:30)
--- NOTE | 2017-05-08 08:33 | PN ---
Date/Time of Note Date/Time of Note DATE: 05/08/17 TIME: 08:31 Assessment/Plan Lines/Catheters IV Catheter Type (from [facility]): Peripheral IV Jacobs in Place (from [facility]): No Assessment/Plan Assessment/Plan [facility] Progress Note Date of Service: 05/08/2017 Location of Service: Fourth floor Today's Assessment & Plan: Overall stable. Discussed with Dr. Dos Santos and we agreed on studying her again to decide colonoscopy vs. appendectomy. Discussed with the patient (no family in the room) and answered all questions. Patient appeared to understand and agreed with plans. With above assessment, I've recommended the following for today: 1. NPO 2. Carefully in-house monitoring 3. Strict I's and O's 4. Labs in a.m. 5. CT abd/pelvis with IV and oral contrast (Gastrografin) 6. Will keep on surgical schedule for lap appy today unless plans change after above CT Thank you again for your great care of this very pleasant patient and wonderful family. If there are any questions, please feel free to call me at [phone]. Nature of presenting problem: High severity Please note that, given the multiple number of diagnoses or management options, the moderate amount and/or complexity of data needed to be reviewed, and moderate to high risk of complications and/or morbidity or mortality, this qualifies as moderate complexity type of decision-making. Disclaimers: 1. Inadvertent spelling and grammatical errors are likely due to electronic health record (EHR)/dictation software used and do not reflect on the quality of delivered patient care. 2. The electronic timestamp recorded on this note does not necessarily reflect the actual date and time of the visit or the service. 3. Portions of this note may have been created through electronic templates and computer algorithms that might bring in information either from the system or from other physicians and providers. Please note that such information may or may not contain errors, the occurrence of which are outside of my control. In general (but not always) this happens either in the beginning or at the end of the note. The portion of the note that I have created are generally done in 1 continuous block of text, flanked at the beginning and at the end by " ", and entered into one field in the EHR. 4. There may be other unanticipated errors in the note that are outside of my control. I can only attest to the portions of the note that I have created. Updated clinical summary: A very-pleasant 61-year-old lady with comorbidities including BMI 27.6, presenting with a picture consistent with acute appendicitis, although there is a slight increased pretest probability for malignancy given her history of blood in the stool about 4 months ago and being told that she needs a colonoscopy. Comorbidities: 1. BMI 27.6 2. Hypertension 3. GERD 4. Depression 5. Arthritis 6. Status post right knee arthroplasty 11/09/2015 7. Tendinitis left shoulder 8. C-sections (4) 9. Prediabetic 10. Daily smoker approximately 3-5 cigarettes per day Subjective: No major events or complaints other than minor abdominal pain which appears to be under control with meds. No nausea or vomiting reported no. No shortness of breath or chest pain. + bowel activity; minimal activity Objective: Vitals: See below Exam: GENERAL: On exam, the patient was laying in bed and appeared to be comfortable and in no acute distress. ABDOMEN: Soft, minimal tenderness in the right lower quadrant and some in the right upper quadrant and nondistended. There are no peritoneal signs or guarding. SKIN: Skin appears to be pink and feels warm to touch. NEUROLOGIC: Patient is awake, alert, and follows commands appropriately. Exam/Review of Systems Vital Signs Vitals Vital Signs Date Time Temp Pulse Resp B/P Pulse Ox O2 Delivery O2 Flow Rate FiO2 05/08/17 08:26 98.0 68 18 158/75 92 05/06/17 14:00 Room Air 05/05/17 20:30 2.0 Intake and Output 05/07/17 05/07/17 05/08/17 15:00 23:00 07:00 Intake Total 700 ml 2060 ml 1650 ml Output Total 1200 ml 500 ml Balance 700 ml 860 ml 1150 ml Results Result Diagram: 05/08/17 0433 05/07/17 0441 DOMIGNA BYRNE M.D. May 08, 2017 08:33
[2017-05-08] MEDS ORDERED: DIATRIZOATE MEGLUMINE PO SCH ×2 (09:30)
[2017-05-08] MEDS ORDERED: DIATRIZOATE SODIUM PO SCH ×2 (09:30)
[2017-05-08] MEDS ORDERED: [UNRECOGNIZED DRUG - OTHER] PO SCH ×2 (09:30)
--- NOTE | 2017-05-08 11:38 | PN ---
Date/Time of Note Date/Time of Note DATE: 05/08/17 TIME: 11:34 Assessment/Plan VTE Prophylaxis VTE Prophylaxis Intervention: ambulation Lines/Catheters IV C[facility]ter Type (from [facility]): Peripheral IV Urinary Cath still in place: No Assessment/Plan Chief Complaint/Hosp Course 61 year old female with a history of rectal bleed, presented to the emergency room for evaluation of abdominal pain 4 day duration. 1. Abdominal pain with documented acute appendicitis per imaging studies. -Surgery evaluation appreciated. Plan is eventual appendectomy, however surgery colleagues wants to proceed with the contrast CT study of abdomen and pelvis as they are concerned about possibility of a colon malignancy, and in that instance, patient to have colonoscopy examination. -Continue IV fluids, antibiotics and diet per surgery. 2. History of remote rectal bleed. With negative FOBT, no reported weight loss or loss of appetite and stable H&H, we believe that a screening colonoscopy can be performed at a later time unless proven otherwise from the CT study. That being said, patient has been followed up with expertise in GI and surgery specialities and we will follow their recommendations. 3. Leukocytosis, likely 2/2 acute appendicitis. Resolved -Treatment as per #1. Plan: Follow-up with GI and surgery recommendations. Patient was seen in collaboration with . Problems: Subjective 24 Hr Interval Summary Free Text/Dictation NAD. For oral contrast CT ABD/Pelvis today. No N/V. Abd pain improved. Exam/Review of Systems Vital Signs Vitals Vital Signs Date Time Temp Pulse Resp B/P Pulse Ox O2 Delivery O2 Flow Rate FiO2 05/08/17 08:26 98.0 68 18 158/75 92 05/06/17 14:00 Room Air 05/05/17 20:30 2.0 Intake and Output 05/07/17 05/07/17 05/08/17 15:00 23:00 07:00 Intake Total 700 ml 2060 ml 1650 ml Output Total 1200 ml 500 ml Balance 700 ml 860 ml 1150 ml Exam General: Well developed,adequately built, not in any acute distress . HEENT: Normocephalic, Atraumatic, No laceration or hematoma; Eyes: PEERL, Conjunctiva clear, Anicteric sclera Neck: Supple without any lymphadenopathy, nontender, no JVD, no carotid bruits, trachea midline, no thyromegaly Cardiac: S1, S2 auscultated, regular rhythm and rate, no mumurs or gallop Pulmonary: Normal respiratory effort. Chest clear to auscultation bilaterally, no adventitious breath sounds GI: Tenderness to RUQ/epigastric area-improved. Abdomen normal to inspection. Soft, non- distended, no masses, no rebound tenderness or guarding. Bowel sounds active on all four quadrants Genitourinary: Deferred Extremities: No cyanosis, clubbing, or edema. Pulses [2+] bilaterally. Full ROM on all four extremities. No focal weakness appreciated. Neurologic: Alert to person, place, time, and situation. Affect appropriate, intact sensation. Skin: Clean,dry, and intact. No ecchymosis, no rashes, or lesions Results Result Diagram: 05/08/17 0433 05/08/17 0433 Results 24 hrs Laboratory Tests Test 05/07/17 12:03 05/08/17 04:32 05/08/17 04:33 Stool Occult Blood NEGATIVE Prothrombin Time 13.3 Prothrombin Time Ratio 1.0 INR International Normalized Ratio 1.01 Activated Partial Thromboplast Time 27.5 Lactic Acid Level 1.0 White Blood Count 6.1 Red Blood Count 4.15 L Hemoglobin 12.0 Hematocrit 37.2 Mean Corpuscular Volume 89.6 Mean Corpuscular Hemoglobin 28.9 L Mean Corpuscular Hemoglobin Concent 32.3 Red Cell Distribution Width 13.3 Platelet Count 266 Mean Platelet Volume 10.3 Neutrophils % 56.5 Lymphocytes % 28.1 Monocytes % 9.9 Eosinophils % 4.6 Basophils % 0.7 Nucleated Red Blood Cells % 0.0 Neutrophils # 3.4 Lymphocytes # 1.7 Monocytes # 0.6 Eosinophils # 0.3 Basophils # 0.0 Nucleated Red Blood Cells # 0.0 Sodium Level 141 Potassium Level 4.5 Chloride Level 108 Carbon Dioxide Level 30 Anion Gap 8 Blood Urea Nitrogen 10 Creatinine 0.58 Glucose Level 127 Calcium Level 8.8 Phosphorus Level 4.5 Magnesium Level 1.9 Total Bilirubin 0.0 L Direct Bilirubin 0.00 Indirect Bilirubin 0.0 Aspartate Amino Transf (AST/SGOT) 21 Alanine Aminotransferase (ALT/SGPT) 26 Alkaline Phosphatase 70 Total Protein 6.2 Albumin 3.0 L Globulin 3.20 Albumin/Globulin Ratio 0.93 Medications Medications Current Medications Hydromorphone HCl 1 mg 1 mg Q3 PRN IV SEVERE PAIN LEVEL 7-10 Last administered on 05/08/17 07:35; Admin Dose 1 MG; Start 05/05/17 at 20:00 Dextrose/Sodium Chloride (D5-1/2ns) 1,000 ml @ 100 mls/hr Q10H IV Last administered on 05/08/17 10:04; Admin Dose 100 MLS/HR; Start 05/05/17 at 22: 37 Ondansetron HCl (Zofran Inj) 4 mg Q6H PRN IV NAUSEA AND/OR VOMITING Last administered on 05/07/17 10:28; Admin Dose 4 MG; Start 05/05/17 at 23:00 Morphine Sulfate 3 mg 3 mg Q4H PRN IV pain Last administered on 05/06/17 16: 24; Admin Dose 3 MG; Start 05/05/17 at 23:00 Piperacillin Sod/ Tazobactam Sod (Zosyn 3.375gm/ 100 ml (Pmx)) 100 ml @ 200 mls /hr Q8 IVPB Last administered on 05/08/17 05:19; Admin Dose 200 MLS/HR; Start 05/06/17 at 02:00 Acetaminophen (Tylenol Tab) 650 mg Q6H PRN PO PAIN AND OR ELEVATED TEMP Last administered on 05/07/17 01:06; Admin Dose 650 MG; Start 05/06/17 at 12:30 Non-Formulary Medication 240 ea ONCE PO Last administered on 05/08/17 10:06; Admin Dose 240 EA; Start 05/08/17 at 09:30; Stop 05/08/17 at 15:00 JOHN GARG NP May 08, 2017 11:38
[2017-05-08] MEDS ORDERED: SOD CHLORIDE 0.9% 100 ML ONE (12:17)
[2017-05-08] MEDS ORDERED: IOHEXOL 300MG/ML 150 ML BTL ONE (12:17)
--- NOTE | 2017-05-08 13:00 | PN ---
Date/Time of Note Date/Time of Note DATE: 05/08/17 TIME: 12:58 Assessment/Plan VTE Prophylaxis VTE Prophylaxis Intervention: SCD's Lines/Catheters IV [facility] Type [facility] Peripheral IV Urinary Cath still in place: No Assessment/Plan Chief Complaint/Hosp Course Summary Assessment and Plan: Assessment: Acute appendicitis Plan: Ct abd/pelvis obtained today- results pending- will make further recommendations based on results of Ct scan CEA- negative She was seen in collaboration with Dr. Dos Santos Subjective: Course reviewed with nursing staff Patient interviewed and examined All labs, imaging and other results reviewed C/o pain, being controlled by pain medication at this time. PHYSICAL EXAMINATION: GENERAL: Well developed, well nourished, alert & oriented x 3, in no acute distress SKIN: No lesions, no stigmata chronic liver disease, no evidence of bleeding diathesis LYMPHATIC: No palpable lymphadenopathy. HEAD: Normocephalic, atraumatic, no tenderness. EYES: Pupils equal reactive to light and accommodation, full extraocular movements, sclera clear, non-icteric, no discharge. EARS/NOSE AND THROAT: Ears normal, nose normal, oropharynx normal, oral membranes well hydrated without lesions. NECK: Supple, no masses, thyroid normal, JVP within normal limits, carotids normal without bruits. CHEST: Inspection within normal limits. CARDIOVASCULAR: Heart: Regular rate and rhythm, no murmurs, gallops or rubs. Peripheral pulses present within normal limits, no cyanosis, clubbing or edemas. No pulsatile abdominal mass RESPIRATORY: Lungs clear to auscultation and percussion, no wheezing, no rubs GASTROINTESTINAL AND LIVER: Abdomen: Soft, tenderness, non-distended, no hernias , no masses, no organomegaly, no ascites, no guarding, no rebound tenderness, normoactive bowel sounds. Rectal: Deferred. GENITOURINARY:Female genitalia within normal limits. EXTREMITIES: No cyanosis, clubbing or edema. Problems: Exam/Review of Systems Vital Signs Vitals Vital Signs Date Time Temp Pulse Resp B/P Pulse Ox O2 Delivery O2 Flow Rate FiO2 05/08/17 08:26 98.0 68 18 158/75 92 05/06/17 14:00 Room Air 05/05/17 20:30 2.0 Intake and Output 05/07/17 05/07/17 05/08/17 14:59 22:59 06:59 Intake Total 700 ml 2060 ml 1650 ml Output Total 1200 ml 500 ml Balance 700 ml 860 ml 1150 ml Results Result Diagram: 05/08/17 0433 05/08/17 043 Results 24 hrs Laboratory Tests Test 05/08/17 04:32 05/08/17 04:33 Prothrombin Time 13.3 Prothrombin Time Ratio 1.0 INR International Normalized Ratio 1.01 Activated Partial Thromboplast Time 27.5 Lactic Acid Level 1.0 White Blood Count 6.1 Red Blood Count 4.15 L Hemoglobin 12.0 Hematocrit 37.2 Mean Corpuscular Volume 89.6 Mean Corpuscular Hemoglobin 28.9 L Mean Corpuscular Hemoglobin Concent 32.3 Red Cell Distribution Width 13.3 Platelet Count 266 Mean Platelet Volume 10.3 Neutrophils % 56.5 Lymphocytes % 28.1 Monocytes % 9.9 Eosinophils % 4.6 Basophils % 0.7 Nucleated Red Blood Cells % 0.0 Neutrophils # 3.4 Lymphocytes # 1.7 Monocytes # 0.6 Eosinophils # 0.3 Basophils # 0.0 Nucleated Red Blood Cells # 0.0 Sodium Level 141 Potassium Level 4.5 Chloride Level 108 Carbon Dioxide Level 30 Anion Gap 8 Blood Urea Nitrogen 10 Creatinine 0.58 Glucose Level 127 Calcium Level 8.8 Phosphorus Level 4.5 Magnesium Level 1.9 Total Bilirubin 0.0 L Direct Bilirubin 0.00 Indirect Bilirubin 0.0 Aspartate Amino Transf (AST/SGOT) 21 Alanine Aminotransferase (ALT/SGPT) 26 Alkaline Phosphatase 70 Total Protein 6.2 Albumin 3.0 L Globulin 3.20 Albumin/Globulin Ratio 0.93 Medications Medications Current Medications Hydromorphone HCl 1 mg 1 mg Q3 PRN IV SEVERE PAIN LEVEL 7-10 Last administered on 05/08/17 07:35; Admin Dose 1 MG; Start 05/05/17 at 20:00 Dextrose/Sodium Chloride (D5-1/2ns) 1,000 ml @ 100 mls/hr Q10H IV Last administered on 05/08/17 10:04; Admin Dose 100 MLS/HR; Start 05/05/17 at 22: 37 Ondansetron HCl (Zofran Inj) 4 mg Q6H PRN IV NAUSEA AND/OR VOMITING Last administered on 05/07/17 10:28; Admin Dose 4 MG; Start 05/05/17 at 23:00 Morphine Sulfate 3 mg 3 mg Q4H PRN IV pain Last administered on 05/06/17 16: 24; Admin Dose 3 MG; Start 05/05/17 at 23:00 Piperacillin Sod/ Tazobactam Sod (Zosyn 3.375gm/ 100 ml (Pmx)) 100 ml @ 200 mls /hr Q8 IVPB Last administered on 05/08/17 05:19; Admin Dose 200 MLS/HR; Start 05/06/17 at 02:00 Acetaminophen (Tylenol Tab) 650 mg Q6H PRN PO PAIN AND OR ELEVATED TEMP Last administered on 05/07/17 01:06; Admin Dose 650 MG; Start 05/06/17 at 12:30 Non-Formulary Medication 240 ea ONCE PO Last administered on 05/08/17 10:06; Admin Dose 240 EA; Start 05/08/17 at 09:30; Stop 05/08/17 at 15:00 SIDRA DE LA TORRE May 08, 2017 13:00
--- NOTE | 2017-05-08 14:37 | HPN ---
Date/Time of Note Date/Time of Note DATE: 05/08/17 TIME: 14:37 Interval H&P Admission Note Pt. seen H&P reviewed: No system changes Pt. seen H&P reviewed. No system changes (I attest that I have seen and examined the patient and reviewed the operation in detail, as well as its risks , benefits and alternatives of the operation). I attest that I have seen and examined the patient and reviewed in detail the operation, and its associated risks, benefits and alternative. I have answered all the patient's questions to the best of my ability and the patient wishes to proceed. Please refer to rest of electronic medical record for additional updates. DOMINGA BYRNE M.D. May 08, 2017 14:37
--- NOTE | 2017-05-08 16:26 | RADRPT ---
PROCEDURE: CT Abdomen and Pelvis with contrast. CLINICAL INDICATION: Abdomen and pelvis pain. Right lower quadrant pain. TECHNIQUE: CT scan of the abdomen and pelvis with contrast was performed. The patient was scanned following the uncomplicated intravenous administration of 100 cc of Omnipaque-300. Coronal and sag ittal reformatted images were obtained from the axial source images. Images were reviewed on a high- resolution PACS workstation. Total exam DLP is 1057.94 mGy-cm. CTDIvol is 19.64 mGy. One or more of the following dose reduction techniques were used: Automated exposure control, adjustment of the mA and/or kV according to patient size, use of iterative reconstruction technique. COMPARISON: Noncontrast CT scan of the abdomen and pelvis dated 05/05/2017. FINDINGS: The lung bases are normal. There is no pleural effusion. The liver is normal in size and attenuation. There is a benign 1.3 cm cyst in the left hepatic lobe segment 4B. There is no other focal hepatic lesion. The gallbladder and bile ducts are normal. The spleen is normal in size. There is no focal splenic lesion. Both adrenals are normal with no enlargement or mass. The pancreas is unremarkable with no mass or evidence of pancreatitis. Both kidneys demonstrate normal contrast enhancement. There is no renal mass or hydronephrosis. The abdominal aorta is not dilated. Calcification is present in the aorta consistent with atheroscle rosis. There is no retroperitoneal lymphadenopathy or mass. There is no pelvic lymphadenopathy or mass. The bladder and distal ureters are normal. The appendix is dilated measuring 13 mm. There is mild surrounding mesenteric edema posteriorly, sli ghtly improved. The bowel and mesentery are otherwise normal. There is no free fluid or free gas. There are degenerative changes of the spine. There is no fracture or lytic lesion. IMPRESSION: 1. Benign left hepatic lobe cyst. 2. Atherosclerosis. 3. Dilated appendix with mild surrounding mesenteric edema, slightly improved. This may indicate ap pendicitis. 4. Otherwise normal bowel and mesentery. 5. Degenerative changes of the spine. RPTAT: QQ .Roc Pierre MD, MD Date Time Electronically viewed and signed by .Roc Pierre MD, MD on 05/08/2017 16:26 .R/
[2017-05-08] MEDS ORDERED: BUPIVACAINE 0.5%/EPI (SDV) 30 ML INJ ONE (17:39)
[2017-05-08] MEDS ORDERED: MEPERIDINE 100 MG INJ ONE (17:47)
[2017-05-08] MEDS ORDERED: ROCURONIUM 50 MG INJ ONE (17:47)
[2017-05-08] MEDS ORDERED: PROPOFOL 20 ML ONE (17:47)
[2017-05-08] MEDS ORDERED: LIDOCAINE 2% (SDV) 5 ML INJ ONE (17:47)
[2017-05-08] MEDS ORDERED: SUCCINYLCHOLINE CHLORIDE 100 MG/5 ML SYG IV ONE (17:47)
[2017-05-08] MEDS ORDERED: GLYCOPYRROLATE 0.4 MG INJ ONE ×2 (17:47→18:27)
[2017-05-08] MEDS ORDERED: NEOSTIGMINE 3 MG/3 ML SYRINGE ONE ×2 (17:47→18:27)
[2017-05-08] MEDS ORDERED: OXYCODONE/ACETAMINOPHEN (5/325) TAB PO PRN ×2 (18:00)
[2017-05-08] MEDS ORDERED: ONDANSETRON 4 MG INJ IV PRN (18:00)
[2017-05-08] MEDS ORDERED: MIDAZOLAM 1 MG/ML 2 ML INJ IV PRN (18:00)
[2017-05-08] MEDS ORDERED: DIPHENHYDRAMINE 50 MG INJ IV PRN (18:00)
[2017-05-08] MEDS ORDERED: FENTAnyl 50 MCG/ML VIAL IV PRN ×3 (18:00)
[2017-05-08] MEDS ORDERED: hydrALAzine 20 MG INJ IV PRN (18:00)
[2017-05-08] MEDS ORDERED: MEPERIDINE 25 MG INJ IV PRN (18:00)
[2017-05-08] MEDS ORDERED: LABETALOL HCL 20MG INJ IV PRN (18:00)
[2017-05-08] MEDS ORDERED: HYDROmorphONE (0.2 MG/ML) 10ML SYG IV PRN ×3 (18:00)
[2017-05-08] MEDS ORDERED: EPHEDrine SULFATE 50 MG/5 ML SYG IV PRN (18:00)
[2017-05-08] MEDS ORDERED: METOCLOPRAMIDE 10 MG INJ IV PRN (18:00)
[2017-05-08] MEDS ORDERED: ATROPINE 1 MG/10 ML SYRINGE ONE (18:21)
[2017-05-08] MEDS ORDERED: METOCLOPRAMIDE 10 MG INJ ONE (18:26)
[2017-05-08] MEDS ORDERED: ONDANSETRON 4 MG INJ ONE (18:26)
[2017-05-08] MEDS: D5W-0.45 NACL + KCL 20 MEQ 1,000 ML IV SCH ×2 (19:23→20:42)
--- NOTE | 2017-05-08 19:23 | OPR ---
Date/Time of Note Date/Time of Note DATE: 05/08/17 TIME: 19:23 Operative Report Preoperative Diagnosis n Postoperative Diagnosis n Surgeon see signature line Supply Chain Project Manager n Anesthesia Type: other Estimated Blood Loss: other Transfusion none Specimen n Grafts/Implants none Complications none Procedure Description [facility] INPATIENT OPERATIVE NOTE PLACE OF SERVICE: [facility] DATE OF SURGERY: 05/08/2017 PREOPERATIVE DIAGNOSIS: 1. Acute appendicitis 2. BMI 27.6 3. GERD 4. Depression 5. Arthritis 6. Status post right knee arthroplasty 11/09/2015 7. Tendinitis left shoulder 8. C-sections (4) 9. Prediabetic 10. Daily smoker approximately 3-5 cigarettes per day 11. Hypertension POSTOPERATIVE DIAGNOSIS: 1. Acute appendicitis 2. BMI 27.6 3. GERD 4. Depression 5. Arthritis 6. Status post right knee arthroplasty 11/09/2015 7. Tendinitis left shoulder 8. C-sections (4) 9. Prediabetic 10. Daily smoker approximately 3-5 cigarettes per day 11. Hypertension OPERATION: 1. Laparoscopic appendectomy 2. Umbilical hernia repair (incidental) without mesh SURGEON: Dominga Byrne M.D. SR. MANAGER MARKETING: None ANESTHESIA: General endotracheal tube anesthesia ANESTHESIOLOGIST: Cristian Adams M.D. BRIEF SUMMARY: An otherwise uncomplicated laparoscopic appendectomy was performed with findings of non-perforated appendicitis. Updated clinical summary: A very-pleasant 61-year-old lady with comorbidities including BMI 27.6, presenting with a picture consistent with acute appendicitis, although there is a slight increased pretest probability for malignancy given her history of blood in the stool about 4 months ago and being told that she needs a colonoscopy. Comorbidities: 1. BMI 27.6 2. Hypertension 3. GERD 4. Depression 5. Arthritis 6. Status post right knee arthroplasty 11/09/2015 7. Tendinitis left shoulder 8. C-sections (4) 9. Prediabetic 10. Daily smoker approximately 3-5 cigarettes per day BRIEF HISTORY: The patient is a very pleasant 61-year-old lady with above- mentioned comorbidities, we were kindly asked consult regarding management of abdominal pain which was believed to be acute appendicitis. Because of the appearance on the CT scan and the history of bleeding per rectum 4 months ago with recommendation for colonoscopy was part of the clinical picture, I decided to delay appendectomy until we had a better idea from gastroenterology standpoint whether the patient needed further workup or not. There was close collaboration between myself and Dr Dos Santos and after 2 days of waiting, we decided the best course of action would be to repeat the CT scan with contrast which happened on 05/08/2017 showing no evidence of obvious malignancy. For this reason, I changed the course and recommended that we perform a laparoscopic appendectomy today. I met with the patient and family and counseled them regarding the possible options of treatment, and I strongly suggested a laparoscopic, possible open appendectomy. We reviewed the operation in detail as well as the risks, benefits, alternatives, and expected outcomes of this operation. After careful consideration of all the risks, benefits, and alternatives, the patient and family appeared to understand those risks and wished to proceed with surgery. For a detailed report of my consultation with patient and family, please refer to my separate consultation note. STATEMENT OF THE INFORMED CONSENT: The patient and family appeared to understand the risks of the operation to include, but not be limited to risk of postoperative pain and scar tissue, possible infection or bleeding requiring other interventions such as opening the wound, placement of drainage catheters, or other operative interventions; possible injury to surrounding to structures including bowel, bladder, bile duct, or blood vessels, or solid organs such as liver, kidney, or pancreas requiring other interventions or procedures; possible leakage of bowel from anastomotic sites or suture lines causing significant increase in morbidity and mortality and requiring multiple interventions including but not limited to, placement of drainage catheters, imaging studies, as well as operative interventions; possible other source of sepsis such as urinary tract infections or pneumonias, or other sources of potentially life threatening problems such as deep venous thrombus formation causing pulmonary embolism, myocardial arrhythmias and infarctions, and even . After careful consideration of all their options, the patient and family appeared to understand and wished to proceed with surgery. DESCRIPTION OF PROCEDURE: After obtaining informed consent, the patient was brought into the operating room and was placed in a normal supine position, where successful general endotracheal tube anesthesia was performed. Intravenous access was already in place and intravenous antimicrobials had been appropriately chosen and dosed prior to the operation. The patient's abdominal skin was prepped and draped from the nipple line down to the level of the upper thighs in the usual sterile fashion. We then called a surgical time-out where the patient's identification, date of , nature of the operation, allergies , presence of intravenous antimicrobials, presence of needed equipment, and any other concerns were reviewed and agreed upon by all members of the operating room team. We then started the operation by placing a 5 mm skin incision in the left lower quadrant and then introduced a 5 mm [employer] trocar into the peritoneal space, visualizing all the layers of the abdominal wall as we entered. Note that there was no indication of any injury to underlying structures with our entry into the peritoneal space. We insufflated the abdominal cavity to a maximum pressure of 15 mmHg and again inspected the area of insertion and ensured no obvious injury to underlying structures prior to inspecting the abdominal cavity and showing no obvious pus, bowel contents, or other abnormal features. We could not see the appendix very well. There were also significant amount of adhesions in the pelvic region precluding placement of a 5 mm port in the suprapubic midline area. We, therefore, injected the future sites of our other trocars with 0.25% Marcaine with epinephrine and placed a 5 mm [employer] trocar into the left upper quadrant midclavicular subcostal area. We also placed a 12 mm trocar in the umbilical midline area, all under direct visualization. With our instruments in place, we had excellent visualization and access to the right lower quadrant. After mild adhesio lysis, we identified the appendix, which was inflamed but had a normal base coming out of the cecum. I then went ahead and used judicious amount of cautery as well as mostly blunt dissection to circumferentially isolate the base of the appendix and then transected this using 3 firings of the white load of the Endo-FABIO stapler (slightly suboptimal angle of the stapler and need for slight involvement of the cecum and the staple line because of that and hence the number of lows that had to be used on the stapler) . We also repeated the firing on the mesentery of the appendix (2) and completely disconnected the organ from the colon, delivered this out through the 12 mm trocar site inside of an EndoCatch bag without having to enlarge the fascial defect as well as without contaminating the wound. The specimen was sent to Pathology for further analysis. We then ensured adequate hemostasis and bile stasis, removed all our equipment including the pneumoperitoneum from the abdominal cavity prior to closing the infraumbilical fascia with 1 figure-of- eight 0 Vicryl suture on a UR-6 needle after removal of a small hernia sac which we incidentally discovered at the time of operation (1 cm umbilical hernia incidentally repaired with this suture to close the 12 mm port site), washing the wounds with copious amounts of normal saline, injecting the initial insertion point of the trocar with 0.25% Marcaine with epinephrine, and then closing the skin using interrupted 4-0 Monocryl sutures. Light dressing was then applied. At the end of the operation, both the sponge count and needle count were reportedly correct x2. The patient tolerated the procedure without any reported complications. ESTIMATED BLOOD LOSS: Less than 10 mL. BLOOD OR BLOOD PRODUCT TRANSFUSIONS: None to my knowledge. SPECIMENS: 1. Appendix 2. Umbilical hernia sac GRAFTS: None COMPLICATIONS: None. DISPOSITION: Recovery area. Disclaimers: 1. Inadvertent spelling and grammatical errors are likely due to electronic health record (EHR)/dictation software used and do not reflect on the quality of delivered patient care. 2. The electronic timestamp recorded on this note does not necessarily reflect the actual date and time of the visit or the service. 3. Portions of this note may have been created through electronic templates and computer algorithms that might bring in information either from the system or from other physicians and providers. Please note that such information may or may not contain errors, the occurrence of which are outside of my control. In general (but not always) this happens either in the beginning or at the end of the note. The portion of the note that I have created are generally done in 1 continuous block of text, flanked at the beginning and at the end by " ", and entered into one field in the EHR. 4. There may be other unanticipated errors in the note that are outside of my control. I can only attest to the portions of the note that I have created. DOMINGA BYRNE M.D. May 08, 2017 19:23
[2017-05-08] MEDS ORDERED: NA PHOSPHATE/BIPHOS 133 ML ENEMA PR PRN (19:30)
[2017-05-08] MEDS ORDERED: HYDROCODONE/APAP (5/325) TAB PO PRN ×2 (19:30)
[2017-05-08] MEDS ORDERED: HYDROmorphONE 2 MG/ML SYG IV PRN (19:30)
[2017-05-08] MEDS ORDERED: HYDROmorphONE 0.5 MG/0.5 ML SYG IV PRN (19:30)
[2017-05-08] MEDS ORDERED: DOCUSATE SODIUM 100 MG CAP PO PRN (19:30)
[2017-05-08] MEDS ORDERED: BISACODYL 10 MG SUPP PR PRN (19:30)
[2017-05-09] MEDS: HYDROmorphONE 1 MG/ML SYG IV PRN ×2 (00:26→05:40)
[2017-05-09 00:52] VITALS: BP 131/72; RESP 20
[2017-05-09] MEDS: D5W-0.45 NACL + KCL 20 MEQ 1,000 ML IV SCH ×2 (05:23→15:23)
[2017-05-09] MEDS: ONDANSETRON 4 MG INJ IV PRN (05:40)
[2017-05-09] MEDS: DEXTROSE 5%-0.45% NACL 1,000 ML IV SCH (06:37)
[2017-05-09 07:49] VITALS: BP 117/66; RESP 18
[2017-05-09] MEDS ORDERED: FAMOTIDINE 20 MG INJ IV SCH (09:00)
[2017-05-09] MEDS ORDERED: ENOXAPARIN 40 MG/0.4 ML SYG SC SCH (09:00)
--- NOTE | 2017-05-09 09:58 | PN ---
Date/Time of Note Date/Time of Note DATE: 05/09/17 TIME: 09:53 Assessment/Plan VTE Prophylaxis VTE Prophylaxis Intervention: ambulation Lines/Catheters IV [facility]ter Type (from [facility]): Peripheral IV Urinary Cath still in place: No Assessment/Plan Chief Complaint/Hosp Course 61 year old female with a history of rectal bleed, presented to the emergency room for evaluation of abdominal pain 4 day duration. 1. Acute appendicitis. Status post Laparoscopic appendectomy, Umbilical hernia repair (incidental) without mesh -Postoperative diet, anticoagulation, antibiotics per surgery. -Continue pain control. 2. History of remote rectal bleed. With negative FOBT, no reported weight loss or loss of appetite and stable H&H. -Needs routine health screening (colonoscopy recommended)-can be done as outpatient. Plan: Follow-up with GI and surgery recommendations on discharge planning. Patient was seen in collaboration with . Problems: Subjective 24 Hr Interval Summary Free Text/Dictation Patient is status post from laparoscopic appendectomy. Doing well. Remains afebrile. With improved pain status. Passing flatus. Tolerating diet. Exam/Review of Systems Vital Signs Vitals Vital Signs Date Time Temp Pulse Resp B/P Pulse Ox O2 Delivery O2 Flow Rate FiO2 05/09/17 07:49 97.4 62 18 117/66 98 05/08/17 22:30 Nasal Cannula 05/08/17 19:34 8.0 Intake and Output 05/08/17 05/08/17 05/09/17 15:00 23:00 07:00 Intake Total 1300 ml 1150 ml 750 ml Output Total 1930 ml 650 ml Balance 1300 ml -780 ml 100 ml Exam General: Well developed,adequately built, not in any acute distress . HEENT: Normocephalic, Atraumatic, No laceration or hematoma; Eyes: PEERL, Conjunctiva clear, Anicteric sclera Neck: Supple without any lymphadenopathy, nontender, no JVD, no carotid bruits, trachea midline, no thyromegaly Cardiac: S1, S2 auscultated, regular rhythm and rate, no mumurs or gallop Pulmonary: Normal respiratory effort. Chest clear to auscultation bilaterally, no adventitious breath sounds GI: Lap abdominal incision site intact. There is mild tenderness to incisional area otherwise, stable. Abdomen normal to inspection. Soft, non- distended, no masses, no rebound tenderness or guarding. Bowel sounds active on all four quadrants Genitourinary: Deferred Extremities: No cyanosis, clubbing, or edema. Pulses [2+] bilaterally. Full ROM on all four extremities. No focal weakness appreciated. Neurologic: Alert to person, place, time, and situation. Affect appropriate, intact sensation. Skin: Clean,dry, and intact. No ecchymosis, no rashes, or lesions Results Result Diagram: 05/09/1752905/09/17529 Results 24 hrs Laboratory Tests Test 05/08/17 19:34 05/09/17 05:30 Bedside Glucose 116 White Blood Count 9.1 # Red Blood Count 4.06 L Hemoglobin 11.6 L Hematocrit 36.7 L Mean Corpuscular Volume 90.4 Mean Corpuscular Hemoglobin 28.6 L Mean Corpuscular Hemoglobin Concent 31.6 L Red Cell Distribution Width 13.4 Platelet Count 283 Mean Platelet Volume 10.6 H Neutrophils % 76.1 Lymphocytes % 14.7 L Monocytes % 7.0 Eosinophils % 1.6 Basophils % 0.4 Nucleated Red Blood Cells % 0.0 Neutrophils # 6.9 Lymphocytes # 1.3 Monocytes # 0.6 Eosinophils # 0.2 Basophils # 0.0 Nucleated Red Blood Cells # 0.0 Sodium Level 141 Potassium Level 4.3 Chloride Level 104 Carbon Dioxide Level 31 Anion Gap 10 Blood Urea Nitrogen 6 L Creatinine 0.58 Glucose Level 140 Calcium Level 8.7 Medications Medications Current Medications Hydromorphone HCl 1 mg 1 mg Q3 PRN IV SEVERE PAIN LEVEL 7-10 Last administered on 05/09/17 05:40; Admin Dose 1 MG; Start 05/05/17 at 20:00 Dextrose/Sodium Chloride (D5-1/2ns) 1,000 ml @ 100 mls/hr Q10H IV Last administered on 05/08/17 14:15; Admin Dose 100 MLS/HR; Start 05/05/17 at 22: 37 Ondansetron HCl (Zofran Inj) 4 mg Q6H PRN IV NAUSEA AND/OR VOMITING Last administered on 05/09/17 05:40; Admin Dose 4 MG; Start 05/05/17 at 23:00 Morphine Sulfate (morphine) 3 mg Q4H PRN IV pain Last administered on 16:24; Admin Dose 3 MG; Start 05/05/17 at 23:00 Acetaminophen 650 mg 650 mg Q6H PRN PO PAIN AND OR ELEVATED TEMP Last administered on 05/07/17 01:06; Admin Dose 650 MG; Start 05/06/17 at 12:30 Potassium Chloride/Dextrose/ Sod Cl (D5-1/2ns + KCl 20 Meq) 1,000 ml @ 100 mls/ hr Q10H IV Last administered on 05/08/17 20:42; Admin Dose 100 MLS/HR; Start 05/08/17 at 19:23 Acetaminophen/ Hydrocodone Bitart ([place] (5/325)) 1 tab Q4H PRN PO PAIN LEVEL 4 -7; Start 05/08/17 at 19:30 Acetaminophen/ Hydrocodone Bitart ([place] (5/325)) 2 tab Q4H PRN PO PAIN LEVEL 7 -10; Start 05/08/17 at 19:30 Hydromorphone HCl (Dilaudid) 0.5 mg Q2 PRN IV PAIN; Start 05/08/17 at 19:30 Hydromorphone HCl (Dilaudid) 1 mg Q2 PRN IV PAIN; Start 05/08/17 at 19:30 Docusate Sodium (Colace) 100 mg BID PRN PO CONSTIPATION; Start 05/08/17 at 19: 30 Bisacodyl (Dulcolax Supp) 10 mg BID PRN [place] CONSTIPATION; Start 05/08/17 at 19: 30 Sodium Biphosphate/ Sodium Phosphate (Fleet Enema) 133 ml BID PRN [place] CONSTIPATION; Start 05/08/17 at 19:30 Famotidine (Pepcid Iv) 20 mg DAILY IV Last administered on 05/09/17 09:01; Admin Dose 20 MG; Start 05/09/17 at 09:00 Enoxaparin Sodium (Lovenox) 40 mg DAILY SC Last administered on 05/09/17 09: 10; Admin Dose 40 MG; Start 05/09/17 at 09:00 JOHN GARG NP May 09, 2017 09:58
--- NOTE | 2017-05-09 10:03 | PDOCDIS ---
Discharge Instructions CONDITION Patient Condition: Stable HOME CARE INSTRUCTIONS: Diet Instructions: Regular FOLLOW UP/APPOINTMENTS Follow-up Plan 1.Follow up with in 1 week [address] [place] [address] Office 2.Follow up with in 2 weeks-needs colonoscopy. [address] [place] [address] Office primary care physician in 1 week If you don't have one please let someone know, we can give you resources that may help you pick one. You may also call your insurance company to assign one to you. Review your medication list with your nurse before leaving and if you need new prescriptions please let your nurse know. I may have made changes to your home medications or given you new prescriptions, please let your primary doctor know as well. Stay compliant with your medications and report any side effects to your PCP or pharmacist. Return to the ER if you have any concerns and cannot reach your doctors or call your insurance company, they usually have a nurse that can help you. 2. Call 911 or go to the nearest emergency room if experiencing loss of consciousness, dizziness, chest pain, shortness of breath, vomiting/abdominal pain, speech difficulties, motor weakness or any unusual symptoms. Post operative Instructions *Do not lift anything more than 25 pounds for 6 to 8 weeks *Do not swim or take hot tub bath for 2weeks *Remove dressing and May shower-Use mild soap around site and pat dry *If you notice any oozing, bleeding or other drainage or having fever or chills from site please contact Surgeon's office at -If unable to get office, you may go to nearest emergency room JOHN GARG NP May 09, 2017 10:03
--- NOTE | 2017-05-09 10:03 | PDOCDIS ---
Discharge Instructions CONDITION Patient Condition: Stable HOME CARE INSTRUCTIONS: Diet Instructions: Regular FOLLOW UP/APPOINTMENTS Follow-up Plan 1.Follow up with in 1 week [address] [place] [address] Office 2.Follow up with in 2 weeks-needs colonoscopy. [address] [place] [address] Office primary care physician in 1 week If you don't have one please let someone know, we can give you resources that may help you pick one. You may also call your insurance company to assign one to you. Review your medication list with your nurse before leaving and if you need new prescriptions please let your nurse know. I may have made changes to your home medications or given you new prescriptions, please let your primary doctor know as well. Stay compliant with your medications and report any side effects to your PCP or pharmacist. Return to the ER if you have any concerns and cannot reach your doctors or call your insurance company, they usually have a nurse that can help you. 2. Call 911 or go to the nearest emergency room if experiencing loss of consciousness, dizziness, chest pain, shortness of breath, vomiting/abdominal pain, speech difficulties, motor weakness or any unusual symptoms. Post operative Instructions *Do not lift anything more than 25 pounds for 6 to 8 weeks *Do not swim or take hot tub bath for 2weeks *Remove dressing and May shower-Use mild soap around site and pat dry *If you notice any oozing, bleeding or other drainage or having fever or chills from site please contact Surgeon's office at -If unable to get office, you may go to nearest emergency room JOHN GARG NP May 09, 2017 10:03
--- NOTE | 2017-05-09 10:03 | PDOCDIS ---
Discharge Instructions CONDITION Patient Condition: Stable HOME CARE INSTRUCTIONS: Diet Instructions: Regular FOLLOW UP/APPOINTMENTS Follow-up Plan 1.Follow up with in 1 week [address] [place] [address] Office 2.Follow up with in 2 weeks-needs colonoscopy. [address] [place] [address] Office primary care physician in 1 week If you don't have one please let someone know, we can give you resources that may help you pick one. You may also call your insurance company to assign one to you. Review your medication list with your nurse before leaving and if you need new prescriptions please let your nurse know. I may have made changes to your home medications or given you new prescriptions, please let your primary doctor know as well. Stay compliant with your medications and report any side effects to your PCP or pharmacist. Return to the ER if you have any concerns and cannot reach your doctors or call your insurance company, they usually have a nurse that can help you. 2. Call 911 or go to the nearest emergency room if experiencing loss of consciousness, dizziness, chest pain, shortness of breath, vomiting/abdominal pain, speech difficulties, motor weakness or any unusual symptoms. Post operative Instructions *Do not lift anything more than 25 pounds for 6 to 8 weeks *Do not swim or take hot tub bath for 2weeks *Remove dressing and May shower-Use mild soap around site and pat dry *If you notice any oozing, bleeding or other drainage or having fever or chills from site please contact Surgeon's office at -If unable to get office, you may go to nearest emergency room JOHN GARG NP May 09, 2017 10:03
[2017-05-09] MEDS ORDERED: CEPH-443 PO (10:04)
--- NOTE | 2017-05-09 10:13 | DS ---
Date/Time of Note Date/Time of Note DATE: 05/09/17 TIME: 10:11 Discharge Summary Admission/Discharge Info Admit Date/Time May 05, 2017 at 16:36 Discharge Date/Time Discharge Diagnosis 1. Acute appendicitis. Status post Laparoscopic appendectomy, Umbilical hernia repair (incidental) without mesh 2. History of remote rectal bleed. With negative FOBT, no reported weight loss or loss of appetite and stable H&H. -Needs routine health screening (colonoscopy recommended) as outpatient. Patient Condition: Stable Consults , surgery , GI Procedures 05/08/2017. CT abdomen and pelvis with contrast. IMPRESSION: 1. Benign left hepatic lobe cyst. 2. Atherosclerosis. 3. Dilated appendix with mild surrounding mesenteric edema, slightly improved. This may indicate appendicitis. 4. Otherwise normal bowel and mesentery. 5. Degenerative changes of the spine. 05/08/2017. Laparoscopic appendectomy, Umbilical hernia repair (incidental) without mesh Hospital Course This is a 61-year-old female with a past medical history of hypertension, depression, osteoporosis, remote history of rectal bleed, who presented to the emergency room with complaints of epigastric and right-sided abdominal pain. CAT scan of abdomen and pelvis was consistent with acute appendicitis without evidence of any perforation. Patient was admitted. Patient was continued on IV antibiotics, and pain medications. She was evaluated by surgery colleagues. As per surgery colleagues, a gastroenterology consultation was called secondary to her remote history of GI bleed and to determine whether patient needs inpatient colonoscopy first prior to any surgical procedures.As per discussion between GI and surgery team, a CAT scan of abdomen and pelvis was repeated with contrast given. There was no evidence of malignancy. Patient also had negative FOBT. She also did not have any unintentional weight loss, or poor appetite. There is no melena or any evidence of GI bleed. At this time, colonoscopy can be deferred as outpatient. On 05/08/2017, patient was taken to the operating room and she had undergone laparoscopic appendectomy with umbilical hernia repair, which was incidental without mesh. Postoperatively, patient did well. Her diet was advanced and she was able to tolerate it. Pain was minimal. At this time, patient is medically stable and she is feeling back to her baseline. Disposition: Home. Peripheral: Patient to follow-up with gastroenterology and she would benefit from having a colonoscopy as outpatient in 6-8 weeks. Approximately 60 minutes was spent in coordinating the discharge on this patient. Patient was seen in collaboration with . Home Meds Active Scripts Hydrocodone/Acetaminophen ([place] 5-325 Tablet) 1 Each Tablet, 1 TAB PO Q6H Y for PAIN, #20 TAB Prov:ABEBA CAMARILLO PA-C 09/09/16 Ondansetron Hcl* (Zofran* ODT) 4 mg -ODT Tab.disper, 4 MG PO Q6 Y for NAUSEA AND /OR VOMITING, #30 TAB Prov:NANCY HIGUERA MD 06/24/15 Reported Medications Metoprolol Tartrate* (Lopressor*) 25 Mg Tab, 25 MG PO BID, #60 TAB 06/24/15 Gabapentin* (Neurontin*) 100 Mg Capsule, 200 MG PO BID, CAP 06/24/15 Methocarbamol* (Methocarbamol*) 500 Mg Tablet, 500 MG PO Q8, TAB 06/24/15 Escitalopram Oxalate* (Lexapro*) 10 Mg Tablet, 10 MG PO DAILY, #30 TAB 06/24/15 Omeprazole* (Omeprazole*) 20 Mg Capsule.dr, 20 MG PO DAILY, CAP 06/24/15 Docusate Sodium* (Docusate Sodium*) 100 Mg Capsule, 100 MG PO DAILY, CAP 06/24/15 Follow-up Plan 1.Follow up with in 1 week [address] [facility] [address] [place] [address] Office 2.Follow up with in 2 weeks-needs colonoscopy. [address] [facility] [address] [place] [address] Office primary care physician in 1 week If you don't have one please let someone know, we can give you resources that may help you pick one. You may also call your insurance company to assign one to you. Review your medication list with your nurse before leaving and if you need new prescriptions please let your nurse know. I may have made changes to your home medications or given you new prescriptions, please let your primary doctor know as well. Stay compliant with your medications and report any side effects to your PCP or pharmacist. Return to the ER if you have any concerns and cannot reach your doctors or call your insurance company, they usually have a nurse that can help you. 2. Call 911 or go to the nearest emergency room if experiencing loss of consciousness, dizziness, chest pain, shortness of breath, vomiting/abdominal pain, speech difficulties, motor weakness or any unusual symptoms. Post operative Instructions *Do not lift anything more than 25 pounds for 6 to 8 weeks *Do not swim or take hot tub bath for 2weeks *Remove dressing and May shower-Use mild soap around site and pat dry *If you notice any oozing, bleeding or other drainage or having fever or chills from site please contact Surgeon's office at -If unable to get office, you may go to nearest emergency room Primary Care Provider Heather Sanford Pending Labs Laboratory Tests Test 05/08/17 19:34 05/09/17 05:30 Bedside Glucose 116mg/dL (70-220) White Blood Count 9.110^3/ul (4.8-10.8) Red Blood Count 4.0610^6/ul (4.20-5.40) Hemoglobin 11.6g/dl (12.0-16.0) Hematocrit 36.7% (37.0-47.0) Mean Corpuscular Volume 90.4fl (82.0-101.0) Mean Corpuscular Hemoglobin 28.6pg (29.0-33.0) Mean Corpuscular Hemoglobin Concent 31.6g/dl (32.0-37.0) Red Cell Distribution Width 13.4% (11.5-14.5) Platelet Count 31168^3/UL (140-415) Mean Platelet Volume 10.6fl (7.4-10.4) Neutrophils % 76.1% (39.0-77.0) Lymphocytes % 14.7% (15.0-51.0) Monocytes % 7.0% (0.0-11.0) Eosinophils % 1.6% (0.0-7.0) Basophils % 0.4% (0.0-2.0) Nucleated Red Blood Cells % 0.0/100WBC (0.0-0.0) Neutrophils # 6.910^3/ul (1.6-7.5) Lymphocytes # 1.310^3/ul (0.8-2.9) Monocytes # 0.610^3/ul (0.3-0.9) Eosinophils # 0.210^3/ul (0.0-0.5) Basophils # 0.010^3/ul (0.0-0.1) Nucleated Red Blood Cells # 0.010^3/ul (0.0-0.0) Sodium Level 141mmol/L (135-144) Potassium Level 4.3mmol/L (3.5-5.1) Chloride Level 104mmol/L (97-110) Carbon Dioxide Level 31mmol/L (21-31) Anion Gap 10 (8-16) Blood Urea Nitrogen 6mg/dl (7-20) Creatinine 0.58mg/dl (0.44-1.00) Glucose Level 140mg/dl (70-220) Calcium Level 8.7mg/dl (8.4-10.2) JOHN GARG NP May 09, 2017 10:13 JOHN GARG NP May 09, 2017 10:13
--- NOTE | 2017-05-09 10:13 | DS ---
Date/Time of Note Date/Time of Note DATE: 05/09/17 TIME: 10:11 Discharge Summary Admission/Discharge Info Admit Date/Time May 05, 2017 at 16:36 Discharge Date/Time Discharge Diagnosis 1. Acute appendicitis. Status post Laparoscopic appendectomy, Umbilical hernia repair (incidental) without mesh 2. History of remote rectal bleed. With negative FOBT, no reported weight loss or loss of appetite and stable H&H. -Needs routine health screening (colonoscopy recommended) as outpatient. Patient Condition: Stable Consults , surgery , GI Procedures 05/08/2017. CT abdomen and pelvis with contrast. IMPRESSION: 1. Benign left hepatic lobe cyst. 2. Atherosclerosis. 3. Dilated appendix with mild surrounding mesenteric edema, slightly improved. This may indicate appendicitis. 4. Otherwise normal bowel and mesentery. 5. Degenerative changes of the spine. 05/08/2017. Laparoscopic appendectomy, Umbilical hernia repair (incidental) without mesh Hospital Course This is a 61-year-old female with a past medical history of hypertension, depression, osteoporosis, remote history of rectal bleed, who presented to the emergency room with complaints of epigastric and right-sided abdominal pain. CAT scan of abdomen and pelvis was consistent with acute appendicitis without evidence of any perforation. Patient was admitted. Patient was continued on IV antibiotics, and pain medications. She was evaluated by surgery colleagues. As per surgery colleagues, a gastroenterology consultation was called secondary to her remote history of GI bleed and to determine whether patient needs inpatient colonoscopy first prior to any surgical procedures.As per discussion between GI and surgery team, a CAT scan of abdomen and pelvis was repeated with contrast given. There was no evidence of malignancy. Patient also had negative FOBT. She also did not have any unintentional weight loss, or poor appetite. There is no melena or any evidence of GI bleed. At this time, colonoscopy can be deferred as outpatient. On 05/08/2017, patient was taken to the operating room and she had undergone laparoscopic appendectomy with umbilical hernia repair, which was incidental without mesh. Postoperatively, patient did well. Her diet was advanced and she was able to tolerate it. Pain was minimal. At this time, patient is medically stable and she is feeling back to her baseline. Disposition: Home. Peripheral: Patient to follow-up with gastroenterology and she would benefit from having a colonoscopy as outpatient in 6-8 weeks. Approximately 60 minutes was spent in coordinating the discharge on this patient. Patient was seen in collaboration with . Home Meds Active Scripts Hydrocodone/Acetaminophen ([place] 5-325 Tablet) 1 Each Tablet, 1 TAB PO Q6H Y for PAIN, #20 TAB Prov:ABEBA CAMARILLO PA-C 09/09/16 Ondansetron Hcl* (Zofran* ODT) 4 mg -ODT Tab.disper, 4 MG PO Q6 Y for NAUSEA AND /OR VOMITING, #30 TAB Prov:NANCY HIGUERA MD 06/24/15 Reported Medications Metoprolol Tartrate* (Lopressor*) 25 Mg Tab, 25 MG PO BID, #60 TAB 06/24/15 Gabapentin* (Neurontin*) 100 Mg Capsule, 200 MG PO BID, CAP 06/24/15 Methocarbamol* (Methocarbamol*) 500 Mg Tablet, 500 MG PO Q8, TAB 06/24/15 Escitalopram Oxalate* (Lexapro*) 10 Mg Tablet, 10 MG PO DAILY, #30 TAB 06/24/15 Omeprazole* (Omeprazole*) 20 Mg Capsule.dr, 20 MG PO DAILY, CAP 06/24/15 Docusate Sodium* (Docusate Sodium*) 100 Mg Capsule, 100 MG PO DAILY, CAP 06/24/15 Follow-up Plan 1.Follow up with in 1 week [address] [facility] [address] [place] [address] Office 2.Follow up with in 2 weeks-needs colonoscopy. [address] [facility] [address] [place] [address] Office primary care physician in 1 week If you don't have one please let someone know, we can give you resources that may help you pick one. You may also call your insurance company to assign one to you. Review your medication list with your nurse before leaving and if you need new prescriptions please let your nurse know. I may have made changes to your home medications or given you new prescriptions, please let your primary doctor know as well. Stay compliant with your medications and report any side effects to your PCP or pharmacist. Return to the ER if you have any concerns and cannot reach your doctors or call your insurance company, they usually have a nurse that can help you. 2. Call 911 or go to the nearest emergency room if experiencing loss of consciousness, dizziness, chest pain, shortness of breath, vomiting/abdominal pain, speech difficulties, motor weakness or any unusual symptoms. Post operative Instructions *Do not lift anything more than 25 pounds for 6 to 8 weeks *Do not swim or take hot tub bath for 2weeks *Remove dressing and May shower-Use mild soap around site and pat dry *If you notice any oozing, bleeding or other drainage or having fever or chills from site please contact Surgeon's office at -If unable to get office, you may go to nearest emergency room Primary Care Provider Heather Sanford Pending Labs Laboratory Tests Test 05/08/17 19:34 05/09/17 05:30 Bedside Glucose 116mg/dL (70-220) White Blood Count 9.110^3/ul (4.8-10.8) Red Blood Count 4.0610^6/ul (4.20-5.40) Hemoglobin 11.6g/dl (12.0-16.0) Hematocrit 36.7% (37.0-47.0) Mean Corpuscular Volume 90.4fl (82.0-101.0) Mean Corpuscular Hemoglobin 28.6pg (29.0-33.0) Mean Corpuscular Hemoglobin Concent 31.6g/dl (32.0-37.0) Red Cell Distribution Width 13.4% (11.5-14.5) Platelet Count 70845^3/UL (140-415) Mean Platelet Volume 10.6fl (7.4-10.4) Neutrophils % 76.1% (39.0-77.0) Lymphocytes % 14.7% (15.0-51.0) Monocytes % 7.0% (0.0-11.0) Eosinophils % 1.6% (0.0-7.0) Basophils % 0.4% (0.0-2.0) Nucleated Red Blood Cells % 0.0/100WBC (0.0-0.0) Neutrophils # 6.910^3/ul (1.6-7.5) Lymphocytes # 1.310^3/ul (0.8-2.9) Monocytes # 0.610^3/ul (0.3-0.9) Eosinophils # 0.210^3/ul (0.0-0.5) Basophils # 0.010^3/ul (0.0-0.1) Nucleated Red Blood Cells # 0.010^3/ul (0.0-0.0) Sodium Level 141mmol/L (135-144) Potassium Level 4.3mmol/L (3.5-5.1) Chloride Level 104mmol/L (97-110) Carbon Dioxide Level 31mmol/L (21-31) Anion Gap 10 (8-16) Blood Urea Nitrogen 6mg/dl (7-20) Creatinine 0.58mg/dl (0.44-1.00) Glucose Level 140mg/dl (70-220) Calcium Level 8.7mg/dl (8.4-10.2) JOHN GARG NP May 09, 2017 10:13 JOHN GARG NP May 09, 2017 10:13
--- NOTE | 2017-05-09 10:13 | DS ---
Date/Time of Note Date/Time of Note DATE: 05/09/17 TIME: 10:11 Discharge Summary Admission/Discharge Info Admit Date/Time May 05, 2017 at 16:36 Discharge Date/Time Discharge Diagnosis 1. Acute appendicitis. Status post Laparoscopic appendectomy, Umbilical hernia repair (incidental) without mesh 2. History of remote rectal bleed. With negative FOBT, no reported weight loss or loss of appetite and stable H&H. -Needs routine health screening (colonoscopy recommended) as outpatient. Patient Condition: Stable Consults , surgery , GI Procedures 05/08/2017. CT abdomen and pelvis with contrast. IMPRESSION: 1. Benign left hepatic lobe cyst. 2. Atherosclerosis. 3. Dilated appendix with mild surrounding mesenteric edema, slightly improved. This may indicate appendicitis. 4. Otherwise normal bowel and mesentery. 5. Degenerative changes of the spine. 05/08/2017. Laparoscopic appendectomy, Umbilical hernia repair (incidental) without mesh Hospital Course This is a 61-year-old female with a past medical history of hypertension, depression, osteoporosis, remote history of rectal bleed, who presented to the emergency room with complaints of epigastric and right-sided abdominal pain. CAT scan of abdomen and pelvis was consistent with acute appendicitis without evidence of any perforation. Patient was admitted. Patient was continued on IV antibiotics, and pain medications. She was evaluated by surgery colleagues. As per surgery colleagues, a gastroenterology consultation was called secondary to her remote history of GI bleed and to determine whether patient needs inpatient colonoscopy first prior to any surgical procedures.As per discussion between GI and surgery team, a CAT scan of abdomen and pelvis was repeated with contrast given. There was no evidence of malignancy. Patient also had negative FOBT. She also did not have any unintentional weight loss, or poor appetite. There is no melena or any evidence of GI bleed. At this time, colonoscopy can be deferred as outpatient. On 05/08/2017, patient was taken to the operating room and she had undergone laparoscopic appendectomy with umbilical hernia repair, which was incidental without mesh. Postoperatively, patient did well. Her diet was advanced and she was able to tolerate it. Pain was minimal. At this time, patient is medically stable and she is feeling back to her baseline. Disposition: Home. Peripheral: Patient to follow-up with gastroenterology and she would benefit from having a colonoscopy as outpatient in 6-8 weeks. Approximately 60 minutes was spent in coordinating the discharge on this patient. Patient was seen in collaboration with . Home Meds [facility] [employer] Hydrocodone/Acetaminophen ([place] 5-325 Tablet) 1 Each Tablet, 1 TAB PO Q6H Y for PAIN, #20 TAB Prov:ABEBA CAMARILLO PA-C 09/09/16 Ondansetron Hcl* (Zofran* ODT) 4 mg -ODT Tab.disper, 4 MG PO Q6 Y for NAUSEA AND /OR VOMITING, #30 TAB Prov:NANCY HIGUERA MD 06/24/15 Reported Medications Metoprolol Tartrate* (Lopressor*) 25 Mg Tab, 25 MG PO BID, #60 TAB 06/24/15 Gabapentin* (Neurontin*) 100 Mg Capsule, 200 MG PO BID, CAP 06/24/15 Methocarbamol* (Methocarbamol*) 500 Mg Tablet, 500 MG PO Q8, TAB 06/24/15 Escitalopram Oxalate* (Lexapro*) 10 Mg Tablet, 10 MG PO DAILY, #30 TAB 06/24/15 Omeprazole* (Omeprazole*) 20 Mg Capsule.dr, 20 MG PO DAILY, CAP 06/24/15 Docusate Sodium* (Docusate Sodium*) 100 Mg Capsule, 100 MG PO DAILY, CAP 06/24/15 Follow-up Plan 1.Follow up with in 1 week [address] [facility] [address] [place] [address] Office 2.Follow up with in 2 weeks-needs colonoscopy. [address] [facility] [address] [place] [address] Office primary care physician in 1 week If you don't have one please let someone know, we can give you resources that may help you pick one. You may also call your insurance company to assign one to you. Review your medication list with your nurse before leaving and if you need new prescriptions please let your nurse know. I may have made changes to your home medications or given you new prescriptions, please let your primary doctor know as well. Stay compliant with your medications and report any side effects to your PCP or pharmacist. Return to the ER if you have any concerns and cannot reach your doctors or call your insurance company, they usually have a nurse that can help you. 2. Call 911 or go to the nearest emergency room if experiencing loss of consciousness, dizziness, chest pain, shortness of breath, vomiting/abdominal pain, speech difficulties, motor weakness or any unusual symptoms. Post operative Instructions *Do not lift anything more than 25 pounds for 6 to 8 weeks *Do not swim or take hot tub bath for 2weeks *Remove dressing and May shower-Use mild soap around site and pat dry *If you notice any oozing, bleeding or other drainage or having fever or chills from site please contact Surgeon's office at -If unable to get office, you may go to nearest emergency room Primary Care Provider Heather Sanford Pending Labs Laboratory Tests Test 05/08/17 19:34 05/09/17 05:30 Bedside Glucose 116mg/dL (70-220) White Blood Count 9.110^3/ul (4.8-10.8) Red Blood Count 4.0610^6/ul (4.20-5.40) Hemoglobin 11.6g/dl (12.0-16.0) Hematocrit 36.7% (37.0-47.0) Mean Corpuscular Volume 90.4fl (82.0-101.0) Mean Corpuscular Hemoglobin 28.6pg (29.0-33.0) Mean Corpuscular Hemoglobin Concent 31.6g/dl (32.0-37.0) Red Cell Distribution Width 13.4% (11.5-14.5) Platelet Count 88871^3/UL (140-415) Mean Platelet Volume 10.6fl (7.4-10.4) Neutrophils % 76.1% (39.0-77.0) Lymphocytes % 14.7% (15.0-51.0) Monocytes % 7.0% (0.0-11.0) Eosinophils % 1.6% (0.0-7.0) Basophils % 0.4% (0.0-2.0) Nucleated Red Blood Cells % 0.0/100WBC (0.0-0.0) Neutrophils # 6.910^3/ul (1.6-7.5) Lymphocytes # 1.310^3/ul (0.8-2.9) Monocytes # 0.610^3/ul (0.3-0.9) Eosinophils # 0.210^3/ul (0.0-0.5) Basophils # 0.010^3/ul (0.0-0.1) Nucleated Red Blood Cells # 0.010^3/ul (0.0-0.0) Sodium Level 141mmol/L (135-144) Potassium Level 4.3mmol/L (3.5-5.1) Chloride Level 104mmol/L (97-110) Carbon Dioxide Level 31mmol/L (21-31) Anion Gap 10 (8-16) Blood Urea Nitrogen 6mg/dl (7-20) Creatinine 0.58mg/dl (0.44-1.00) Glucose Level 140mg/dl (70-220) Calcium Level 8.7mg/dl (8.4-10.2) JOHN GARG NP May 09, 2017 10:13 JOHN GARG NP May 09, 2017 10:13
--- NOTE | 2017-05-09 12:01 | PN ---
Date/Time of Note Date/Time of Note DATE: 05/09/17 TIME: 12:01 Assessment/Plan Lines/Catheters IV Catheter Type (from [facility]): Peripheral IV Jacobs in Place (from [facility]): No Assessment/Plan Assessment/Plan [facility] Progress Note Date of Service: 05/09/2017 Location of Service: Fourth floor Today's Assessment & Plan: Overall stable and doing relatively well. Abdomen remains benign. No indication of any major or obvious postoperative complications or wound problems. Okay from my standpoint for patient to discharge home. Discussed with the patient (no family in the room) and answered all questions. Patient appeared to understand and agreed with plans. With above assessment, I've recommended the following for today: 1. Discharge home when medically stable 2. Follow-up with my office in 1-2 weeks Thank you again for your great care of this very pleasant patient and wonderful family. If there are any questions, please feel free to call me at [phone]. Nature of presenting problem: High severity Please note that, given the multiple number of diagnoses or management options, the moderate amount and/or complexity of data needed to be reviewed, and moderate to high risk of complications and/or morbidity or mortality, this qualifies as moderate complexity type of decision-making. Disclaimers: 1. Inadvertent spelling and grammatical errors are likely due to electronic health record (EHR)/dictation software used and do not reflect on the quality of delivered patient care. 2. The electronic timestamp recorded on this note does not necessarily reflect the actual date and time of the visit or the service. 3. Portions of this note may have been created through electronic templates and computer algorithms that might bring in information either from the system or from other physicians and providers. Please note that such information may or may not contain errors, the occurrence of which are outside of my control. In general (but not always) this happens either in the beginning or at the end of the note. The portion of the note that I have created are generally done in 1 continuous block of text, flanked at the beginning and at the end by " ", and entered into one field in the EHR. 4. There may be other unanticipated errors in the note that are outside of my control. I can only attest to the portions of the note that I have created. Updated clinical summary: A very-pleasant 61-year-old lady with comorbidities including BMI 27.6, presenting with a picture consistent with acute appendicitis, although there is a slight increased pretest probability for malignancy given her history of blood in the stool about 4 months ago and being told that she needs a colonoscopy. S/p lap appy [facility] 05/08/17. Comorbidities: 1. Acute appendicitis. S/p lap appy [facility] 05/08/17 2. BMI 27.6 3. GERD 4. Depression 5. Arthritis 6. Status post right knee arthroplasty 11/09/2015 7. Tendinitis left shoulder 8. C-sections (4) 9. Prediabetic 10. Daily smoker approximately 3-5 cigarettes per day 11. Hypertension Subjective: No major events or complaints other than minor abdominal incisional pain which appears to be under control with meds. No nausea or vomiting reported no. No shortness of breath or chest pain. - bowel activity; minimal activity Objective: Vitals: See below Exam: GENERAL: On exam, the patient was laying in bed and appeared to be comfortable and in no acute distress. ABDOMEN: Soft, minimal tenderness in the right lower quadrant and some in the right upper quadrant and nondistended. There are no peritoneal signs or guarding. Incision dressings appear to be clean, dry, and intact without any obvious evidence of underlying erythema, edema, discharge, or hernia. SKIN: Skin appears to be pink and feels warm to touch. NEUROLOGIC: Patient is awake, alert, and follows commands appropriately. Exam/Review of Systems Vital Signs Vitals Vital Signs Date Time Temp Pulse Resp B/P Pulse Ox O2 Delivery O2 Flow Rate FiO2 05/09/17 07:49 97.4 62 18 117/66 98 05/08/17 22:30 Nasal Cannula 05/08/17 19:34 8.0 Intake and Output 05/08/17 05/08/17 05/09/17 15:00 23:00 07:00 Intake Total 1300 ml 1150 ml 750 ml Output Total 1930 ml 650 ml Balance 1300 ml -780 ml 100 ml Results Result Diagram: 05/09/17 0530 05/09/17 0530 DOMINGA BYRNE M.D. May 09, 2017 12:01
--- NOTE | 2017-05-09 12:01 | PN ---
Date/Time of Note Date/Time of Note DATE: 05/09/17 TIME: 12:01 Assessment/Plan Lines/Catheters IV Catheter Type (from [facility]): Peripheral IV Jacobs in Place (from [facility]): No Assessment/Plan Assessment/Plan [facility] Progress Note Date of Service: 05/09/2017 Location of Service: Fourth floor Today's Assessment & Plan: Overall stable and doing relatively well. Abdomen remains benign. No indication of any major or obvious postoperative complications or wound problems. Okay from my standpoint for patient to discharge home. Discussed with the patient (no family in the room) and answered all questions. Patient appeared to understand and agreed with plans. With above assessment, I've recommended the following for today: 1. Discharge home when medically stable 2. Follow-up with my office in 1-2 weeks Thank you again for your great care of this very pleasant patient and wonderful family. If there are any questions, please feel free to call me at [phone]. Nature of presenting problem: High severity Please note that, given the multiple number of diagnoses or management options, the moderate amount and/or complexity of data needed to be reviewed, and moderate to high risk of complications and/or morbidity or mortality, this qualifies as moderate complexity type of decision-making. Disclaimers: 1. Inadvertent spelling and grammatical errors are likely due to electronic health record (EHR)/dictation software used and do not reflect on the quality of delivered patient care. 2. The electronic timestamp recorded on this note does not necessarily reflect the actual date and time of the visit or the service. 3. Portions of this note may have been created through electronic templates and computer algorithms that might bring in information either from the system or from other physicians and providers. Please note that such information may or may not contain errors, the occurrence of which are outside of my control. In general (but not always) this happens either in the beginning or at the end of the note. The portion of the note that I have created are generally done in 1 continuous block of text, flanked at the beginning and at the end by " ", and entered into one field in the EHR. 4. There may be other unanticipated errors in the note that are outside of my control. I can only attest to the portions of the note that I have created. Updated clinical summary: A very-pleasant 61-year-old lady with comorbidities including BMI 27.6, presenting with a picture consistent with acute appendicitis, although there is a slight increased pretest probability for malignancy given her history of blood in the stool about 4 months ago and being told that she needs a colonoscopy. S/p lap appy [facility] 05/08/17. Comorbidities: 1. Acute appendicitis. S/p lap appy [facility] 05/08/17 2. BMI 27.6 3. GERD 4. Depression 5. Arthritis 6. Status post right knee arthroplasty 11/09/2015 7. Tendinitis left shoulder 8. C-sections (4) 9. Prediabetic 10. Daily smoker approximately 3-5 cigarettes per day 11. Hypertension Subjective: No major events or complaints other than minor abdominal incisional pain which appears to be under control with meds. No nausea or vomiting reported no. No shortness of breath or chest pain. - bowel activity; minimal activity Objective: Vitals: See below Exam: GENERAL: On exam, the patient was laying in bed and appeared to be comfortable and in no acute distress. ABDOMEN: Soft, minimal tenderness in the right lower quadrant and some in the right upper quadrant and nondistended. There are no peritoneal signs or guarding. Incision dressings appear to be clean, dry, and intact without any obvious evidence of underlying erythema, edema, discharge, or hernia. SKIN: Skin appears to be pink and feels warm to touch. NEUROLOGIC: Patient is awake, alert, and follows commands appropriately. Exam/Review of Systems Vital Signs Vitals Vital Signs Date Time Temp Pulse Resp B/P Pulse Ox O2 Delivery O2 Flow Rate FiO2 05/09/17 07:49 97.4 62 18 117/66 98 05/08/17 22:30 Nasal Cannula 05/08/17 19:34 8.0 Intake and Output 05/08/17 05/08/17 05/09/17 15:00 23:00 07:00 Intake Total 1300 ml 1150 ml 750 ml Output Total 1930 ml 650 ml Balance 1300 ml -780 ml 100 ml Results Result Diagram: 05/09/17 0530 05/09/17 0530 DOMINGA BYRNE M.D. May 09, 2017 12:01
--- NOTE | 2017-05-09 12:01 | PN ---
Date/Time of Note Date/Time of Note DATE: 05/09/17 TIME: 12:01 Assessment/Plan Lines/Catheters IV Catheter Type (from [facility]): Peripheral IV Jacobs in Place (from [facility]): No Assessment/Plan Assessment/Plan [facility] Progress Note Date of Service: 05/09/2017 Location of Service: Fourth floor Today's Assessment & Plan: Overall stable and doing relatively well. Abdomen remains benign. No indication of any major or obvious postoperative complications or wound problems. Okay from my standpoint for patient to discharge home. Discussed with the patient (no family in the room) and answered all questions. Patient appeared to understand and agreed with plans. With above assessment, I've recommended the following for today: 1. Discharge home when medically stable 2. Follow-up with my office in 1-2 weeks Thank you again for your great care of this very pleasant patient and wonderful family. If there are any questions, please feel free to call me at [phone]. Nature of presenting problem: High severity Please note that, given the multiple number of diagnoses or management options, the moderate amount and/or complexity of data needed to be reviewed, and moderate to high risk of complications and/or morbidity or mortality, this qualifies as moderate complexity type of decision-making. Disclaimers: 1. Inadvertent spelling and grammatical errors are likely due to electronic health record (EHR)/dictation software used and do not reflect on the quality of delivered patient care. 2. The electronic timestamp recorded on this note does not necessarily reflect the actual date and time of the visit or the service. 3. Portions of this note may have been created through electronic templates and computer algorithms that might bring in information either from the system or from other physicians and providers. Please note that such information may or may not contain errors, the occurrence of which are outside of my control. In general (but not always) this happens either in the beginning or at the end of the note. The portion of the note that I have created are generally done in 1 continuous block of text, flanked at the beginning and at the end by " ", and entered into one field in the EHR. 4. There may be other unanticipated errors in the note that are outside of my control. I can only attest to the portions of the note that I have created. Updated clinical summary: A very-pleasant 61-year-old lady with comorbidities including BMI 27.6, presenting with a picture consistent with acute appendicitis, although there is a slight increased pretest probability for malignancy given her history of blood in the stool about 4 months ago and being told that she needs a colonoscopy. S/p lap appy [facility] 05/08/17. Comorbidities: 1. Acute appendicitis. S/p lap appy [facility] 05/08/17 2. BMI 27.6 3. GERD 4. Depression 5. Arthritis 6. Status post right knee arthroplasty 11/09/2015 7. Tendinitis left shoulder 8. C-sections (4) 9. Prediabetic 10. Daily smoker approximately 3-5 cigarettes per day 11. Hypertension Subjective: No major events or complaints other than minor abdominal incisional pain which appears to be under control with meds. No nausea or vomiting reported no. No shortness of breath or chest pain. - bowel activity; minimal activity Objective: Vitals: See below Exam: GENERAL: On exam, the patient was laying in bed and appeared to be comfortable and in no acute distress. ABDOMEN: Soft, minimal tenderness in the right lower quadrant and some in the right upper quadrant and nondistended. There are no peritoneal signs or guarding. Incision dressings appear to be clean, dry, and intact without any obvious evidence of underlying erythema, edema, discharge, or hernia. SKIN: Skin appears to be pink and feels warm to touch. NEUROLOGIC: Patient is awake, alert, and follows commands appropriately. Exam/Review of Systems Vital Signs Vitals Vital Signs Date Time Temp Pulse Resp B/P Pulse Ox O2 Delivery O2 Flow Rate FiO2 05/09/17 07:49 97.4 62 18 117/66 98 05/08/17 22:30 Nasal Cannula 05/08/17 19:34 8.0 Intake and Output 05/08/17 05/08/17 05/09/17 15:00 23:00 07:00 Intake Total 1300 ml 1150 ml 750 ml Output Total 1930 ml 650 ml Balance 1300 ml -780 ml 100 ml Results Result Diagram: 05/09/17 0530 05/09/17 0530 DOMINGA BYRNE M.D. May 09, 2017 12:01
--- NOTE | 2017-05-09 13:57 | PN ---
Date/Time of Note Date/Time of Note DATE: 05/09/17 TIME: 13:53 Assessment/Plan VTE Prophylaxis VTE Prophylaxis Intervention: SCD's Lines/Catheters IV [facility]ter Type (from [facility]): Peripheral IV Urinary Cath still in place: No Assessment/Plan Chief Complaint/Hosp Course Summary Assessment and Plan: Assessment: Acute appendicitis Plan: CT abd/pelvis positive for appendicitis Underwent laparoscopic appendectomy yesterday, tolerated well Pt to f/u with GI 3-5 months for outpatient colonoscopy Pt to be d/c'd home once cleared by surgery diet per surgery She was seen in collaboration with Dr. Dos Santos Subjective: Course reviewed with nursing staff Patient interviewed and examined All labs, imaging and other results reviewed S/p laparoscopic appendectomy, pt doing well, some surgical pain (to be expected ) but feeling better overall. We will up with GI for outpatient colonoscopy 3-5 months PHYSICAL EXAMINATION: GENERAL: Well developed, well nourished, alert & oriented x 3, in no acute distress SKIN: No lesions, no stigmata chronic liver disease, no evidence of bleeding diathesis, surgical incision is intact LYMPHATIC: No palpable lymphadenopathy. HEAD: Normocephalic, atraumatic, no tenderness. EYES: Pupils equal reactive to light and accommodation, full extraocular movements, sclera clear, non-icteric, no discharge. EARS/NOSE AND THROAT: Ears normal, nose normal, oropharynx normal, oral membranes well hydrated without lesions. NECK: Supple, no masses, thyroid normal, JVP within normal limits, carotids normal without bruits. CHEST: Inspection within normal limits. CARDIOVASCULAR: Heart: Regular rate and rhythm, no murmurs, gallops or rubs. Peripheral pulses present within normal limits, no cyanosis, clubbing or edemas. No pulsatile abdominal mass RESPIRATORY: Lungs clear to auscultation and percussion, no wheezing, no rubs GASTROINTESTINAL AND LIVER: Abdomen: Soft, tenderness, non-distended, no hernias , no masses, no organomegaly, no ascites, no guarding, no rebound tenderness, normoactive bowel sounds. Rectal: Deferred. GENITOURINARY:Female genitalia within normal limits. EXTREMITIES: No cyanosis, clubbing or edema. Problems: Exam/Review of Systems Vital Signs Vitals Vital Signs Date Time Temp Pulse Resp B/P Pulse Ox O2 Delivery O2 Flow Rate FiO2 05/09/17 07:49 97.4 62 18 117/66 98 05/08/17 22:30 Nasal Cannula 05/08/17 19:34 8.0 Intake and Output 05/08/17 05/08/17 05/09/17 14:59 22:59 06:59 Intake Total 1200 ml 1250 ml 750 ml Output Total 1930 ml 650 ml Balance 1200 ml -680 ml 100 ml Results Result Diagram: 05/09/17 0530 05/09/17 0530 Results 24 hrs Laboratory Tests Test 05/08/17 19:34 05/09/17 05:30 Bedside Glucose 116 White Blood Count 9.1 # Red Blood Count 4.06 L Hemoglobin 11.6 L Hematocrit 36.7 L Mean Corpuscular Volume 90.4 Mean Corpuscular Hemoglobin 28.6 L Mean Corpuscular Hemoglobin Concent 31.6 L Red Cell Distribution Width 13.4 Platelet Count 283 Mean Platelet Volume 10.6 H Neutrophils % 76.1 Lymphocytes % 14.7 L Monocytes % 7.0 Eosinophils % 1.6 Basophils % 0.4 Nucleated Red Blood Cells % 0.0 Neutrophils # 6.9 Lymphocytes # 1.3 Monocytes # 0.6 Eosinophils # 0.2 Basophils # 0.0 Nucleated Red Blood Cells # 0.0 Sodium Level 141 Potassium Level 4.3 Chloride Level 104 Carbon Dioxide Level 31 Anion Gap 10 Blood Urea Nitrogen 6 L Creatinine 0.58 Glucose Level 140 Calcium Level 8.7 Medications Medications Current Medications Hydromorphone HCl 1 mg 1 mg Q3 PRN IV SEVERE PAIN LEVEL 7-10 Last administered on 05/09/17 05:40; Admin Dose 1 MG; Start 05/05/17 at 20:00 Dextrose/Sodium Chloride (D5-1/2ns) 1,000 ml @ 100 mls/hr Q10H IV Last administered on 05/08/17 14:15; Admin Dose 100 MLS/HR; Start 05/05/17 at 22: 37 Ondansetron HCl (Zofran Inj) 4 mg Q6H PRN IV NAUSEA AND/OR VOMITING Last administered on 05/09/17 05:40; Admin Dose 4 MG; Start 05/05/17 at 23:00 Morphine Sulfate (morphine) 3 mg Q4H PRN IV pain Last administered on 16:24; Admin Dose 3 MG; Start 05/05/17 at 23:00 Acetaminophen 650 mg 650 mg Q6H PRN PO PAIN AND OR ELEVATED TEMP Last administered on 05/07/17 01:06; Admin Dose 650 MG; Start 05/06/17 at 12:30 Potassium Chloride/Dextrose/ Sod Cl (D5-1/2ns + KCl 20 Meq) 1,000 ml @ 100 mls/ hr Q10H IV Last administered on 05/08/17 20:42; Admin Dose 100 MLS/HR; Start 05/08/17 at 19:23 Acetaminophen/ Hydrocodone Bitart ([place] (5/325)) 1 tab Q4H PRN PO PAIN LEVEL 4 -7; Start 05/08/17 at 19:30 Acetaminophen/ Hydrocodone Bitart ([place] (5/325)) 2 tab Q4H PRN PO PAIN LEVEL 7 -10; Start 05/08/17 at 19:30 Hydromorphone HCl (Dilaudid) 0.5 mg Q2 PRN IV PAIN; Start 05/08/17 at 19:30 Hydromorphone HCl (Dilaudid) 1 mg Q2 PRN IV PAIN; Start 05/08/17 at 19:30 Docusate Sodium (Colace) 100 mg BID PRN PO CONSTIPATION; Start 05/08/17 at 19: 30 Bisacodyl (Dulcolax Supp) 10 mg BID PRN [place] CONSTIPATION; Start 05/08/17 at 19: 30 Sodium Biphosphate/ Sodium Phosphate (Fleet Enema) 133 ml BID PRN [place] CONSTIPATION; Start 05/08/17 at 19:30 Famotidine (Pepcid Iv) 20 mg DAILY IV Last administered on 05/09/17 09:01; Admin Dose 20 MG; Start 05/09/17 at 09:00 Enoxaparin Sodium (Lovenox) 40 mg DAILY SC Last administered on 05/09/17 09: 10; Admin Dose 40 MG; Start 05/09/17 at 09:00 SIDRA DE LA TORRE May 09, 2017 13:57
--- NOTE | 2017-05-09 13:57 | PN ---
Date/Time of Note Date/Time of Note DATE: 05/09/17 TIME: 13:53 Assessment/Plan VTE Prophylaxis VTE Prophylaxis Intervention: SCD's Lines/Catheters IV [facility] (from [facility] Peripheral IV Urinary Cath still in place: No Assessment/Plan Chief Complaint/Hosp Course Summary Assessment and Plan: Assessment: Acute appendicitis Plan: CT abd/pelvis positive for appendicitis Underwent laparoscopic appendectomy yesterday, tolerated well Pt to f/u with GI 3-5 months for outpatient colonoscopy Pt to be d/c'd home once cleared by surgery diet per surgery She was seen in collaboration with Dr. Dos Santos Subjective: Course reviewed with nursing staff Patient interviewed and examined All labs, imaging and other results reviewed S/p laparoscopic appendectomy, pt doing well, some surgical pain (to be expected ) but feeling better overall. We will up with GI for outpatient colonoscopy 3-5 months PHYSICAL EXAMINATION: GENERAL: Well developed, well nourished, alert & oriented x 3, in no acute distress SKIN: No lesions, no stigmata chronic liver disease, no evidence of bleeding diathesis, surgical incision is intact LYMPHATIC: No palpable lymphadenopathy. HEAD: Normocephalic, atraumatic, no tenderness. EYES: Pupils equal reactive to light and accommodation, full extraocular movements, sclera clear, non-icteric, no discharge. EARS/NOSE AND THROAT: Ears normal, nose normal, oropharynx normal, oral membranes well hydrated without lesions. NECK: Supple, no masses, thyroid normal, JVP within normal limits, carotids normal without bruits. CHEST: Inspection within normal limits. CARDIOVASCULAR: Heart: Regular rate and rhythm, no murmurs, gallops or rubs. Peripheral pulses present within normal limits, no cyanosis, clubbing or edemas. No pulsatile abdominal mass RESPIRATORY: Lungs clear to auscultation and percussion, no wheezing, no rubs GASTROINTESTINAL AND LIVER: Abdomen: Soft, tenderness, non-distended, no hernias , no masses, no organomegaly, no ascites, no guarding, no rebound tenderness, normoactive bowel sounds. Rectal: Deferred. GENITOURINARY:Female genitalia within normal limits. EXTREMITIES: No cyanosis, clubbing or edema. Problems: Exam/Review of Systems Vital Signs Vitals Vital Signs Date Time Temp Pulse Resp B/P Pulse Ox O2 Delivery O2 Flow Rate FiO2 05/09/17 07:49 97.4 62 18 117/66 98 05/08/17 22:30 Nasal Cannula 05/08/17 19:34 8.0 Intake and Output 05/08/17 05/08/17 05/09/17 14:59 22:59 06:59 Intake Total 1200 ml 1250 ml 750 ml Output Total 1930 ml 650 ml Balance 1200 ml -680 ml 100 ml Results Result Diagram: 05/09/17 0530 05/09/17 0530 Results 24 hrs Laboratory Tests Test 05/08/17 19:34 05/09/17 05:30 Bedside Glucose 116 White Blood Count 9.1 # Red Blood Count 4.06 L Hemoglobin 11.6 L Hematocrit 36.7 L Mean Corpuscular Volume 90.4 Mean Corpuscular Hemoglobin 28.6 L Mean Corpuscular Hemoglobin Concent 31.6 L Red Cell Distribution Width 13.4 Platelet Count 283 Mean Platelet Volume 10.6 H Neutrophils % 76.1 Lymphocytes % 14.7 L Monocytes % 7.0 Eosinophils % 1.6 Basophils % 0.4 Nucleated Red Blood Cells % 0.0 Neutrophils # 6.9 Lymphocytes # 1.3 Monocytes # 0.6 Eosinophils # 0.2 Basophils # 0.0 Nucleated Red Blood Cells # 0.0 Sodium Level 141 Potassium Level 4.3 Chloride Level 104 Carbon Dioxide Level 31 Anion Gap 10 Blood Urea Nitrogen 6 L Creatinine 0.58 Glucose Level 140 Calcium Level 8.7 Medications Medications Current Medications Hydromorphone HCl 1 mg 1 mg Q3 PRN IV SEVERE PAIN LEVEL 7-10 Last administered on 05/09/17 05:40; Admin Dose 1 MG; Start 05/05/17 at 20:00 Dextrose/Sodium Chloride (D5-1/2ns) 1,000 ml @ 100 mls/hr Q10H IV Last administered on 05/08/17 14:15; Admin Dose 100 MLS/HR; Start 05/05/17 at 22: 37 Ondansetron HCl (Zofran Inj) 4 mg Q6H PRN IV NAUSEA AND/OR VOMITING Last administered on 05/09/17 05:40; Admin Dose 4 MG; Start 05/05/17 at 23:00 Morphine Sulfate (morphine) 3 mg Q4H PRN IV pain Last administered on 16:24; Admin Dose 3 MG; Start 05/05/17 at 23:00 Acetaminophen 650 mg 650 mg Q6H PRN PO PAIN AND OR ELEVATED TEMP Last administered on 05/07/17 01:06; Admin Dose 650 MG; Start 05/06/17 at 12:30 Potassium Chloride/Dextrose/ Sod Cl (D5-1/2ns + KCl 20 Meq) 1,000 ml @ 100 mls/ hr Q10H IV Last administered on 05/08/17 20:42; Admin Dose 100 MLS/HR; Start 05/08/17 at 19:23 Acetaminophen/ Hydrocodone Bitart ([place] (5/325)) 1 tab Q4H PRN PO PAIN LEVEL 4 -7; Start 05/08/17 at 19:30 Acetaminophen/ Hydrocodone Bitart ([place] (5/325)) 2 tab Q4H PRN PO PAIN LEVEL 7 -10; Start 05/08/17 at 19:30 Hydromorphone HCl (Dilaudid) 0.5 mg Q2 PRN IV PAIN; Start 05/08/17 at 19:30 Hydromorphone HCl (Dilaudid) 1 mg Q2 PRN IV PAIN; Start 05/08/17 at 19:30 Docusate Sodium (Colace) 100 mg BID PRN PO CONSTIPATION; Start 05/08/17 at 19: 30 Bisacodyl (Dulcolax Supp) 10 mg BID PRN [place] CONSTIPATION; Start 05/08/17 at 19: 30 Sodium Biphosphate/ Sodium Phosphate (Fleet Enema) 133 ml BID PRN [place] CONSTIPATION; Start 05/08/17 at 19:30 Famotidine (Pepcid Iv) 20 mg DAILY IV Last administered on 05/09/17 09:01; Admin Dose 20 MG; Start 05/09/17 at 09:00 Enoxaparin Sodium (Lovenox) 40 mg DAILY SC Last administered on 05/09/17 09: 10; Admin Dose 40 MG; Start 05/09/17 at 09:00 SIDRA DE LAT ORRE May 09, 2017 13:57
[2017-05-09 14:22] VITALS: BP 142/77; RESP 18
== END 2017-05-09 18:20 | disposition home or self-care (01) | DRG 342 ==
LOC: E/R 11:14 → MS1 16:36
PROVIDERS: ADMIT Internal Medicine; ATTEND Internal Medicine
PROC: 0WQF4ZZ Repair Abdominal Wall, Percutaneous Endoscopic Approach (ICD-10-PCS; 2017-05-08)
PROC: 0DTJ4ZZ Resection of Appendix, Percutaneous Endoscopic Approach (ICD-10-PCS; principal; 2017-05-08 14:00)
DX: K35.80 Unspecified acute appendicitis (principal); K92.1 Melena; I10 Essential (primary) hypertension; F17.210 Nicotine dependence, cigarettes, uncomplicated; R73.03 Prediabetes; K21.9 Gastro-esophageal reflux disease without esophagitis; K42.9 Umbilical hernia without obstruction or gangrene
CPT/HCPCS: 36415; 71010; 74176; 74177; 80048; 80053; 81003; 82270; 82378; 82962; 83036; 83605; 83690; 83735; 84100; 85025; 85610; 85730; 88302; 88304; 90686; 93005; 96374; 96375; 96376; J0461; J1170; J1650; J2175; J2270; J2405; J2543; J2710; J2765; J3480; J7042; Q9967

== ENCOUNTER 2017-06-11 10:59 | Outpatient (CLI) | payer OTHER ==
[~2017-06-11] VITALS: Ht 157.5 cm; Wt 75.0 kg
[2017-06-11 11:05] VITALS: BP 144/75; PULSE 73; RESP 18; Ht 157.5 cm; Wt 75.0 kg
--- NOTE | 2017-06-11 11:29 | PN ---
Date/Time of Note Date/Time of Note DATE: 06/11/17 TIME: : Assessment/Plan Assessment/Plan Assessment/Plan [facility] Progress Note Date of Service: 06/11/2017 Location of Service: [facility] Today's Assessment & Plan: Overall stable and doing relatively well. Abdomen remains benign. No indication of any major or obvious postoperative complications or wound problems. Okay from my standpoint for patient to discharge to the great care of her PCP. Discussed with the patient and family and answered all questions. Patient and family appeared to understand and agreed with plans. With above assessment, I've recommended the following for today: 1. F/u with PCP 2. F/u with us prn 3. F/u with GI for colonoscopy regarding history of rectal bleeding Thank you again for your great care of this very pleasant patient and wonderful family. If there are any questions, please feel free to call me at [phone]. Nature of presenting problem: High severity Please note that, given the multiple number of diagnoses or management options, the moderate amount and/or complexity of data needed to be reviewed, and moderate to high risk of complications and/or morbidity or mortality, this qualifies as moderate complexity type of decision-making. Disclaimers: 1. Inadvertent spelling and grammatical errors are likely due to electronic health record (EHR)/dictation software used and do not reflect on the quality of delivered patient care. 2. The electronic timestamp recorded on this note does not necessarily reflect the actual date and time of the visit or the service. 3. Portions of this note may have been created through electronic templates and computer algorithms that might bring in information either from the system or from other physicians and providers. Please note that such information may or may not contain errors, the occurrence of which are outside of my control. In general (but not always) this happens either in the beginning or at the end of the note. The portion of the note that I have created are generally done in 1 continuous block of text, flanked at the beginning and at the end by " ", and entered into one field in the EHR. 4. There may be other unanticipated errors in the note that are outside of my control. I can only attest to the portions of the note that I have created. Updated clinical summary: A very-pleasant 61-year-old lady with comorbidities including BMI 27.6, presenting with a picture consistent with acute appendicitis, although there is a slight increased pretest probability for malignancy given her history of blood in the stool about 4 months ago and being told that she needs a colonoscopy. S/p lap appy and incidental umbilical hernia repair (no mesh) at [facility] 05/08/17. Comorbidities: 1. Acute appendicitis. S/p lap appy and incidental umbilical hernia repair (no mesh) at [facility] 05/08/17. 2. BMI 27.6 3. GERD 4. Depression 5. Arthritis 6. Status post right knee arthroplasty 11/09/2015 7. Tendinitis left shoulder 8. C-sections (4) 9. Prediabetic 10. Daily smoker approximately 3-5 cigarettes per day 11. Hypertension Subjective: No major events or complaints since d/c. No nausea or vomiting reported no. No shortness of breath or chest pain. + bowel activity and nl ( no further report of bleeding) ; minimal activity. Has not had colonoscopy. Objective: Vitals: See below Exam: GENERAL: On exam, the patient was sitting in a chair and appeared to be comfortable and in no acute distress. ABDOMEN: Soft, non-tender and nondistended. There are no peritoneal signs or guarding. Incisions appear to be clean, dry, and intact without any obvious evidence of erythema, edema, discharge, or hernia. SKIN: Skin appears to be pink and feels warm to touch. NEUROLOGIC: Patient is awake, alert, and follows commands appropriately. DOMINGA BYRNE M.D. Jun 11, 2017 11:29
== END 2017-06-11 17:00 | disposition home or self-care (01) ==
LOC: HPC 10:59
PROVIDERS: ATTEND Transplant Surgery
DX: K35.80 Unspecified acute appendicitis (principal); K21.9 Gastro-esophageal reflux disease without esophagitis; F32.9 Major depressive disorder, single episode, unspecified; M19.90 Unspecified osteoarthritis, unspecified site; I10 Essential (primary) hypertension; Z72.0 Tobacco use; M75.92 Shoulder lesion, unspecified, left shoulder
CPT/HCPCS: G0463

== ENCOUNTER 2019-01-27 06:53 | Inpatient (IN) | payer OTHER ==
[2019-01-27] VITALS (28 sets, daily range): BP systolic 84–141; BP diastolic 50–88; PULSE 60–75; RESP 13–20; Ht 152.4 cm; Wt 79.5 kg
[~2019-01-27] VITALS: Ht 152.4 cm; Wt 79.5 kg
[~2019-01-27 06:53] MED LIST changes: -DOCU-159 PO; -HYDR-906 PO; -ONDA4TAB35 PO
[2019-01-27] MEDS ORDERED: METO-319 ORAL (08:40)
[2019-01-27] MEDS ORDERED: ACET1TAB44 ORAL (08:40)
[2019-01-27] MEDS ORDERED: CITA20TA8 ORAL (08:40)
[2019-01-27] MEDS ORDERED: DOCU-159 PO (08:40)
[2019-01-27] MEDS ORDERED: LANSOPRAZOLE 30 MG CAP PO ONE (09:30)
[2019-01-27] MEDS ORDERED: oxyCODONE (CR) 10 MG TAB [oxyCONTIN] PO ONE (09:30)
[2019-01-27] MEDS ORDERED: CEFAZOLIN 1 GM/50 ML (PMX) 50 ML IVPB ONE (09:30)
[2019-01-27] MEDS ORDERED: LACTATED RINGER'S 1,000 ML IV SCH (09:30)
[2019-01-27] MEDS ORDERED: ONDANSETRON 4 MG INJ IV ONE (09:30)
[2019-01-27] MEDS ORDERED: TRANEXAMIC ACID 1GM/100ML(PMX) 100 ML PRE-OP X1 IVPB ONE (09:30)
[2019-01-27] MEDS ORDERED: DEXAMETHASONE 4 MG/ML 1 ML INJ IV ONE (09:30)
[2019-01-27] MEDS ORDERED: ACETAMINOPHEN 1000MG/100ML IV 100 ML IVPB ONE (10:00)
--- NOTE | 2019-01-27 10:27 | HPN ---
Date/Time of Note Date/Time of Note DATE: 01/27/19 TIME: 10:27 Interval H&P Admission Note Pt. seen H&P reviewed: No system changes ASHLYN CHEN MD Jan 27, 2019 10:27
[2019-01-27] MEDS ORDERED: POLYMYXIN B 500000 UNIT INJ ONE (10:40)
[2019-01-27] MEDS ORDERED: FENTAnyl 50 MCG/ML VIAL IV PRN ×3 (11:00)
[2019-01-27] MEDS ORDERED: HYDROmorphONE 1 MG/5 ML IV SYRINGE IV PRN ×3 (11:00)
[2019-01-27] MEDS ORDERED: ONDANSETRON 4 MG INJ IV PRN (11:00)
[2019-01-27] MEDS ORDERED: HIP PAIN COCKTAIL VANCO INJ SCH ×7 (11:00)
[2019-01-27] MEDS ORDERED: DIPHENHYDRAMINE 50 MG INJ IV PRN (11:00)
[2019-01-27] MEDS ORDERED: MEPERIDINE 25 MG INJ IV PRN (11:00)
--- NOTE | 2019-01-27 11:00 | PREAC ---
Date/Time of Note Date/Time of Note DATE: 01/27/19 TIME: 10:59 Anesthesia Eval and Record Evaluation Time Pre-Procedure Interview DATE: 01/27/19 TIME: 10:59 Age 63 Sex female NPO: 8 hrs Preoperative diagnosis left knee primary OA Planned procedure left total knee arthroplasty Past Medical History Past Medical History: Includes Cardio: HTN, Dyslipidemia GI: Obesity Surgery & Anesthesia Issues No known issue Meds Anticoagulation: No Beta Donnell within 24 hr: Yes Reported Medications Acetaminophen with Codeine (Acetaminophen-Cod #4 Tablet) 1 Each Tablet, 1 TAB ORAL Q12 PRN for PAIN LEVEL 6-10 01/27/19 Citalopram Hydrobromide* (Citalopram Hydrobromide*) 20 Mg Tablet, 1 TAB ORAL DAILY 01/27/19 Metoprolol Succinate* (Toprol XL*) 50 Mg Tab.er.24h, 1 TAB ORAL DAILY 01/27/19 Docusate Sodium* (Docusate Sodium*) 100 Mg Capsule, 100 MG PO BID, #60 CAP 01/27/19 Omeprazole* (Omeprazole*) 20 Mg Capsule.dr, 20 MG PO DAILY, CAP 06/24/15 Discontinued Reported Medications Metoprolol Tartrate* (Lopressor*) 25 Mg Tab, 25 MG PO BID, #60 TAB 06/24/15 Gabapentin* (Neurontin*) 100 Mg Capsule, 200 MG PO BID, CAP 06/24/15 Methocarbamol* (Methocarbamol*) 500 Mg Tablet, 500 MG PO Q8, TAB 06/24/15 Escitalopram Oxalate* (Lexapro*) 10 Mg Tablet, 10 MG PO DAILY, #30 TAB 06/24/15 Current Medications Lactated Ringer's 1,000 ml @ 125 mls/hr Q8H IV Last administered on 01/27/19at 08:37; Admin Dose 125 MLS/HR; Start 01/27/19 at 09:30; Stop 01/27/19 at 17:29 Ropivacaine/ Morphine Sulfate/ Clonidine/ Epinephrine/ Ketorolac Tromethamine/ Vancomycin HCl/ Sodium Chloride INTRA-OP INJ ; Start 01/27/19 at 11:00; Stop 01/27/19 at 14:00 Meds reviewed: Yes Allergies Coded Allergies: sulfamethoxazole (Verified Allergy, Mild, 01/27/19) trimethoprim (Verified Allergy, Mild, 01/27/19) Allergies Reviewed: Yes Labs/Studies Labs Reviewed: Reviewed by anesthesiologist test: N/A Studies: ECG (sr), CXR (nl) Pre-procedure Exam Last vitals Vital Signs Date Temp Pulse Resp B/P (MAP) Pulse Ox O2 O2 Flow FiO2 Time Delivery Rate 01/27/19 97.9 71 16 134/88 92 Room Air 08:27 (103) Airway: Adequate mouth opening Mallampati: Mallampati I Teeth: Normal Lung: Normal Heart: Normal ASA Physical Status ASA physical status: 2 Emergency: None Planned Anesthetic General/MAC: LMA Neuraxial: Spinal Nerve block: Femoral (left) Planned Pain Management Sub-arachniod narcotics Pre-operative Attestations Prior to commencing anesthesia and surgery, the patient was re-evaluated, there was verification of: *The patient's identity *The results of appropriate recent lab work and preoperative vital signs *The above evaluation not changing prior to induction *Anesthetic plan, risk benefits, alternative and complications discussed with patient/family; questions answered; patient/family understands, accepts and wishes to proceed. TONY SCOTT MD Jan 27, 2019 11:00
[2019-01-27] MEDS ORDERED: morphine SULFATE/PF (10 MG/10 ML) INJ ONE (11:07)
[2019-01-27] MEDS ORDERED: CEFAZOLIN 1 GM INJ ONE (11:07)
[2019-01-27] MEDS ORDERED: TRANEXAMIC ACID 1GM/100ML(PMX) 100 ML ONE ×2 (11:07→12:42)
[2019-01-27] MEDS ORDERED: ONDANSETRON 4 MG INJ ONE (11:07)
[2019-01-27] MEDS ORDERED: PROPOFOL 20 ML ONE (11:07)
[2019-01-27] MEDS ORDERED: METOCLOPRAMIDE 10 MG INJ ONE (11:07)
[2019-01-27] MEDS ORDERED: MIDAZOLAM 1 MG/ML 2 ML INJ ONE (11:07)
[2019-01-27] MEDS: TRANEXAMIC ACID 1GM/100ML(PMX) 100 ML INTRA-OP X1 IVPB ONE ×2 (12:04→13:05)
[2019-01-27] MEDS ORDERED: EPHEDrine 25 MG/5 ML SYG ONE ×2 (12:57)
[2019-01-27] MEDS ORDERED: ROPIVACAINE 0.2% 20 ML VIAL ONE (12:57)
--- NOTE | 2019-01-27 13:17 | SIPON ---
Date/Time of Note Date/Time of Note DATE: 01/27/19 TIME: 13:16 Operative Report Preoperative Diagnosis Left Knee Osteoarthritis Postoperative Diagnosis Same Operation/Procedure Performed Left Total Knee Arthroplasty Surgeon Susana Sanchez MD children's nursery assistant Shivani Andre PA-C Anesthesia: spinal Estimated blood loss: other Transfusion Required none Specimen bone Grafts/Implants none Complications none SUSANA SANCHEZ MD Jan 27, 2019 13:17
--- NOTE | 2019-01-27 13:26 | OPR ---
Date/Time of Note Date/Time of Note DATE: 01/27/19 TIME: 13:21 Operative Report Free Text/Dictation DATE OF OPERATION: January 27, 2019 SURGEON: Ashlyn Chen MD LIGHT COIL WINDER: Shivani Andre PA-C PREOPERATIVE DIAGNOSIS: Left knee osteoarthritis. POSTOPERATIVE DIAGNOSIS: Left knee osteoarthritis. PROCEDURES PERFORMED: Left total knee arthroplasty, CPT code 93345. ANESTHESIOLOGIST: Dr. Brownlee ANESTHESIA: Spinal. ESTIMATED BLOOD LOSS: 250 mL. COMPLICATIONS: None. SPECIMENS: Resected bone. DISPOSITION: PACU in stable condition. TOURNIQUET TIME: 42 minutes at 250 mmHg. IMPLANT USED: Palacio [employer] Nephew size 2 Courtney tibial baseplate, size 3 standard posterior stabilized Oxinium femur, size 10 mm high flexion polyethylene, size 32 mm patella. INDICATION FOR PROCEDURE: This is an 63-year-old female with end-stage osteoarthritis of the left knee who had failed nonoperative management. Risks, benefits, alternatives of surgical intervention were discussed with the patient and informed consent was obtained. The risks of surgery include but are not limited to infection, deep venous thrombosis, pulmonary embolism, damage to nerves and blood vessels, numbness around incision site, stiffness of knee, need for total knee manipulation under anesthesia, need for blood transfuion, heart attack, stroke, risks associated with anesthesia, implant loosening, wear of prosthesis, need for revision surgery, and . DESCRIPTION OF PROCEDURE: The patient was met in the preoperative suite. The correct operative site was confirmed and marked. The patient was then brought into operating room. After induction of anesthesia, the patient was placed in the supine position on the operating room table. A tourniquet was applied to left upper thigh. The left lower extremity was prepped and draped in the usual sterile fashion. Before starting, a timeout was taken to identify the correct operative site and confirm preoperative antibiotics consisting of 1 g of IV Ancef, along with 1 g of tranexamic acid were administered. At this point, the left leg was elevated and exsanguinated with an Esmarch and tourniquet was then insufflated for the above noted time. A midline incision was made and median parapatellar arthrotomy was then completed. The lateral patellar retinacular ligaments were released. A sleeve of tissue was released from the medial proximal tibia. The cruciate ligaments and the menisci were then excised. At this point, the custom distal femur cutting block was then pinned and 9.5 mm was resected from the distal femur. The 4-in-1 cutting block, size 3 was then placed. An prosper wing was used to confirm that notching of the anterior cortex of the femur would not occur. The anterior and posterior condylar cuts were completed followed by the anterior and posterior chamfer cuts. The osteophytes were then removed with a rongeur. At this point, the tibia was subluxed anteriorly. Appropriate retractors were placed. The custom tibial cutting block was then pinned. The drop was used to ensure the correct alignment. Approximately 11 mm was resected off the lateral tibial plateau and 3.5 mm off the medial tibial plateau. Osteophytes were then removed. At this point, the flexion extension gaps were checked with a 9 mm gap finished cloth checker and noted to be loose in both. Next, trial 3 standard femur was then pinned and the box cut was then completed. The tibia was then subluxed anteriorly and measured to size 2. The tibial tray was then pinned and a keel was then punched. The trial components were placed with a 10 mm polyethylene and noted to have full extension and greater than 120 degrees of flexion. The patella was then subluxed laterally and sized to 19 mm. Approximately, 5 mm was resected. The patellar was sized to 32 mm. The button was placed and noted to have excellent patellar tracking. The trial components were removed. All bony surfaces were pulse lavaged and dried. The appropriate size components were then cemented and the knee was held in extension with a 10 mm trial polyethylene until the cement cured. Once the cement had cured, the trial polyethylene was removed and the appropriate size polyethylene was then placed. The tranexamic acid was redosed. The cocktail was then injected. The extensor mechanism was closed using #1 Stratafix and the subcutaneous tissue with 2-0 Vicryl and the skin with 4-0 Monocryl. Steri-Strips were applied along with a sterile dressing. There were no complications. The patient was transferred to PACU in stable condition. POSTOPERATIVE CARE: The patient will be weightbearing as tolerated. The patient will work with physical therapy, and will receive two additional doses of IV antibiotics along with aspirin 81 mg p.o. b.i.d. for 6 weeks. Upon discharge, patient will follow up in my office within 2 weeks postoperatively. ASHLYN CHEN MD Jan 27, 2019 13:26
[2019-01-27] MEDS ORDERED: NA PHOSPHATE/BIPHOS 133 ML ENEMA PR PRN (13:30)
[2019-01-27] MEDS ORDERED: SENNA/DOCUSATE NA (8.6MG/50MG) TAB PO PRN (13:30)
[2019-01-27] MEDS ORDERED: MAGNESIUM HYDROXIDE 30ML CUP PO PRN (13:30)
[2019-01-27] MEDS ORDERED: NALOXONE (0.4 MG/ML) INJ IV PRN (13:30)
[2019-01-27] MEDS ORDERED: NACL 0.9% 3 ML SYG IV SCH (13:30)
[2019-01-27] MEDS ORDERED: BISACODYL 10 MG SUPP PR PRN (13:30)
[2019-01-27] MEDS ORDERED: DOCUSATE SODIUM 100 MG CAP PO ONE (13:30)
[2019-01-27] MEDS: ONDANSETRON 4 MG INJ IV SCH ×2 (14:26→20:18)
--- NOTE | 2019-01-27 14:26 | CONS ---
Assessment/Plan Assessment/Plan Assessment/Plan (Daily) Assessment and plan: 63-year-old female past medical history hypertension, depression, osteoporosis, prior rectal bleed, osteoarthritis, who was brought in for elective knee surgery. #Status post left total knee replacement: Again secondary to osteoarthritis -Continue postoperative care per primary orthopedic surgery team including pain control medications, labs, fluids, therapy # HTN: Presently stable -Monitor, continue current medications #: History of depression: Monitor for now #Osteoporosis: Monitor, continue PT We will continue to follow along with you. Consultation Date/Type/Reason Admit Date/Time Jan 27, 2019 at 06:53 Date/Time of Note DATE: 01/27/19 TIME: 14:26 Hx of Present Illness 63-year-old female past medical history hypertension, depression, osteoporosis, prior rectal bleed, osteoarthritis, who was brought in for elective knee surgery. Patient underwent left total knee replacement earlier today. This was secondary to osteoarthritis worsening prior to admission. Patient presently is in recovery. Denies any upper or lower GI bleeding, nausea vomiting, fever ch ills, diarrhea constipation. Past Medical History Home Meds Reported Medications Acetaminophen with Codeine (Acetaminophen-Cod #4 Tablet) 1 Each Tablet, 1 TAB ORAL Q12 PRN for PAIN LEVEL 6-10 01/27/19 Citalopram Hydrobromide* (Citalopram Hydrobromide*) 20 Mg Tablet, 1 TAB ORAL DAILY 01/27/19 Metoprolol Succinate* (Toprol XL*) 50 Mg Tab.er.24h, 1 TAB ORAL DAILY 01/27/19 Docusate Sodium* (Docusate Sodium*) 100 Mg Capsule, 100 MG PO BID, #60 CAP 01/27/19 Omeprazole* (Omeprazole*) 20 Mg Capsule.dr, 20 MG PO DAILY, CAP 06/24/15 Discontinued Reported Medications Metoprolol Tartrate* (Lopressor*) 25 Mg Tab, 25 MG PO BID, #60 TAB 06/24/15 Gabapentin* (Neurontin*) 100 Mg Capsule, 200 MG PO BID, CAP 06/24/15 Methocarbamol* (Methocarbamol*) 500 Mg Tablet, 500 MG PO Q8, TAB 06/24/15 Escitalopram Oxalate* (Lexapro*) 10 Mg Tablet, 10 MG PO DAILY, #30 TAB 06/24/15 Medications Current Medications Lactated Ringer's 1,000 ml @ 125 mls/hr Q8H IV Last administered on 01/27/19at 08:37; Admin Dose 125 MLS/HR; Start 01/27/19 at 09:30; Stop 01/27/19 at 17:29 Hydromorphone HCl (Dilaudid) 0.2 mg PACU PRN IV MILD PAIN 1-3; Start 01/27/19 at 11:00; Stop 01/27/19 at 17:00 Hydromorphone HCl (Dilaudid) 0.4 mg PACU PRN IV MOD PAIN 4-6; Start 01/27/19 at 11:00; Stop 01/27/19 at 17:00 Hydromorphone HCl (Dilaudid) 0.6 mg PACU PRN IV SEVERE PAIN 7-10; Start 01/27/19 at 11:00; Stop 01/27/19 at 17:00 Fentanyl (Sublimaze) 25 mcg PACU ORDER PRN IV MILD PAIN 1-3; Start 01/27/19 at 11:00; Stop 01/27/19 at 17:00 Fentanyl (Sublimaze) 50 mcg PACU ORDER PRN IV MOD PAIN 4-6; Start 01/27/19 at 11:00; Stop 01/27/19 at 17:00 Fentanyl (Sublimaze) 75 mcg PACU ORDER PRN IV SEVERE PAIN 7-10; Start 01/27/19 at 11:00; Stop 01/27/19 at 17:00 Ondansetron HCl (Zofran Inj) 4 mg PACU ORDER PRN IV NAUSEA/VOMITING; Start 01/27/19 at 11:00; Stop 01/27/19 at 17:00 Meperidine HCl (Demerol) 25 mg PACU ORDER PRN IV .RIGORS; Start 01/27/19 at 11:00; Stop 01/27/19 at 17:00 Diphenhydramine HCl (Benadryl) 25 mg PACU ORDER PRN IV .PRURITUS; Start 01/27/19 at 11:00; Stop 01/27/19 at 17:00 IV Flush (NS 3 ml) 3 ml PER PROTOCOL IV ; Start 01/27/19 at 13:30 Oxycodone HCl (Roxicodone) 5 mg Q4H PRN PO .PAIN; Start 01/27/19 at 13:30 Ketorolac Tromethamine (Toradol) 15 mg Q6H PRN IV .PAIN; Start 01/27/19 at 13:30 Ondansetron HCl (Zofran Inj) 4 mg Q6H IV ; Start 01/27/19 at 13:30; Stop 01/28/19 at 07:31 Cefazolin Sodium/ Dextrose 50 ml @ 100 mls/hr Q8H IVPB ; Start 01/27/19 at 19:30; Stop 01/28/19 at 11:59 Celecoxib (Celebrex) 100 mg BID PO ; Start 01/28/19 at 09:00 Gabapentin (Neurontin) 100 mg TID PO ; Start 01/27/19 at 21:00 Pantoprazole (Protonix Tab) 40 mg DAILY@06 PO ; Start 01/29/19 at 06:00 Docusate Sodium (Colace) 200 mg BID PO ; Start 01/28/19 at 09:00; Stop 01/31/19 at 08:59 Simethicone (Mylicon) 80 mg TID PRN PO .GAS; Start 01/27/19 at 13:30 Senna/Docusate Sodium (Senokot-S) 2 tab BID PRN PO .CONSTIPATION; Start 01/27/19 at 13:30 Magnesium Hydroxide (Milk Of Mag) 30 ml HS PRN PO .CONSTIPATION; Start 01/27/19 at 13:30 Bisacodyl (Dulcolax Supp) 10 mg DAILY PRN [place] .CONSTIPATION; Start 01/27/19 at 13:30 Sodium Biphosphate/ Sodium Phosphate (Fleet Enema) 133 ml DAILY PRN [place] .CONSTIPATION; Start 01/27/19 at 13:30 Naloxone HCl (Narcan) 0.2 mg Q2M PRN IV .RESP RATE; Start 01/27/19 at 13:30 Aspirin (Halfprin) 81 mg BID PO ; Start 01/28/19 at 09:00 Allergies: Coded Allergies: sulfamethoxazole (Verified Allergy, Mild, 01/27/19) trimethoprim (Verified Allergy, Mild, 01/27/19) Past Surgical History Past Surgical Hx: other (Appendectomy, right knee surgery, right shoulder surgery, carpal tunnel surgery, x4) Social History Alcohol Use: none Smoking Status: Current every day smoker Drug Use: none Exam/Review of Systems Exam Vitals Vital Signs Date Temp Pulse Resp B/P (MAP) Pulse Ox O2 O2 Flow FiO2 Time Delivery Rate 01/27/19 Nasal 3.0 14:05 Cannula 01/27/19 70 14 84/50 (61) 93 13:55 01/27/19 98.9 13:50 Exam General: Lying in bed, no acute distress HEENT: Normocephalic, Atraumatic, No laceration or hematoma; Eyes: PEERL, Conjunctiva clear, Anicteric sclera Neck: Supple without any lymphadenopathy, nontender, Cardiac: S1, S2 auscultated, no mumurs or gallop Pulmonary: Normal respiratory effort. Chest clear to auscultation bilaterally, no adventitious breath sounds GI: Abdomen normal to inspection. Soft, non- distended, no masses, no rebound tenderness or guarding. Bowel sounds active on all four quadrants Extremities: Slight decreased range of motion left lower extremity, otherwise no lower extremity edema bilaterally Neurologic: No focal deficits Medications Medication Current Medications Lactated Ringer's 1,000 ml @ 125 mls/hr Q8H IV Last administered on 01/27/19at 08:37; Admin Dose 125 MLS/HR; Start 01/27/19 at 09:30; Stop 01/27/19 at 17:29 Hydromorphone HCl (Dilaudid) 0.2 mg PACU PRN IV MILD PAIN 1-3; Start 01/27/19 at 11:00; Stop 01/27/19 at 17:00 Hydromorphone HCl (Dilaudid) 0.4 mg PACU PRN IV MOD PAIN 4-6; Start 01/27/19 at 11:00; Stop 01/27/19 at 17:00 Hydromorphone HCl (Dilaudid) 0.6 mg PACU PRN IV SEVERE PAIN 7-10; Start 01/27/19 at 11:00; Stop 01/27/19 at 17:00 Fentanyl (Sublimaze) 25 mcg PACU ORDER PRN IV MILD PAIN 1-3; Start 01/27/19 at 11:00; Stop 01/27/19 at 17:00 Fentanyl (Sublimaze) 50 mcg PACU ORDER PRN IV MOD PAIN 4-6; Start 01/27/19 at 11:00; Stop 01/27/19 at 17:00 Fentanyl (Sublimaze) 75 mcg PACU ORDER PRN IV SEVERE PAIN 7-10; Start 01/27/19 at 11:00; Stop 01/27/19 at 17:00 Ondansetron HCl (Zofran Inj) 4 mg PACU ORDER PRN IV NAUSEA/VOMITING; Start 01/27/19 at 11:00; Stop 01/27/19 at 17:00 Meperidine HCl (Demerol) 25 mg PACU ORDER PRN IV .RIGORS; Start 01/27/19 at 11:00; Stop 01/27/19 at 17:00 Diphenhydramine HCl (Benadryl) 25 mg PACU ORDER PRN IV .PRURITUS; Start 01/27/19 at 11:00; Stop 01/27/19 at 17:00 IV Flush (NS 3 ml) 3 ml PER PROTOCOL IV ; Start 01/27/19 at 13:30 Oxycodone HCl (Roxicodone) 5 mg Q4H PRN PO .PAIN; Start 01/27/19 at 13:30 Ketorolac Tromethamine (Toradol) 15 mg Q6H PRN IV .PAIN; Start 01/27/19 at 13:30 Ondansetron HCl (Zofran Inj) 4 mg Q6H IV ; Start 01/27/19 at 13:30; Stop 01/28/19 at 07:31 Cefazolin Sodium/ Dextrose 50 ml @ 100 mls/hr Q8H IVPB ; Start 01/27/19 at 19:30; Stop 01/28/19 at 11:59 Celecoxib (Celebrex) 100 mg BID PO ; Start 01/28/19 at 09:00 Gabapentin (Neurontin) 100 mg TID PO ; Start 01/27/19 at 21:00 Pantoprazole (Protonix Tab) 40 mg DAILY@06 PO ; Start 01/29/19 at 06:00 Docusate Sodium (Colace) 200 mg BID PO ; Start 01/28/19 at 09:00; Stop 01/31/19 at 08:59 Simethicone (Mylicon) 80 mg TID PRN PO .GAS; Start 01/27/19 at 13:30 Senna/Docusate Sodium (Senokot-S) 2 tab BID PRN PO .CONSTIPATION; Start 01/27/19 at 13:30 Magnesium Hydroxide (Milk Of Mag) 30 ml HS PRN PO .CONSTIPATION; Start 01/27/19 at 13:30 Bisacodyl (Dulcolax Supp) 10 mg DAILY PRN [place] .CONSTIPATION; Start 01/27/19 at 13:30 Sodium Biphosphate/ Sodium Phosphate (Fleet Enema) 133 ml DAILY PRN [place] .CONSTIPATION; Start 01/27/19 at 13:30 Naloxone HCl (Narcan) 0.2 mg Q2M PRN IV .RESP RATE; Start 01/27/19 at 13:30 Aspirin (Halfprin) 81 mg BID PO ; Start 01/28/19 at 09:00 SERGE VALLADARES Jan 27, 2019 14:26
[2019-01-27] MEDS ORDERED: NAPHAZOLINE 0.012% 15 ML OPH BOTH EYES PRN (17:00)
[2019-01-27] MEDS ORDERED: ARTIFICIAL TEARS 15 ML OPH BOTH EYES PRN (17:00)
[2019-01-27] MEDS: KETOROLAC 15 MG INJ IV PRN (18:33)
[2019-01-27] MEDS: CEFAZOLIN 2 GM/50 ML (PMX) 50 ML IVPB SCH (18:56)
[2019-01-27] MEDS: GABAPENTIN 100 MG CAP PO SCH (20:19)
[2019-01-28] MEDS: ONDANSETRON 4 MG INJ IV SCH ×2 (01:30→08:54)
[2019-01-28] MEDS: KETOROLAC 15 MG INJ IV PRN ×3 (02:20→15:07)
[2019-01-28] MEDS: CEFAZOLIN 2 GM/50 ML (PMX) 50 ML IVPB SCH ×3 (02:20→19:48)
[2019-01-28] MEDS: ARTIFICIAL TEARS 15 ML OPH BOTH EYES PRN ×2 (06:15→15:12)
[2019-01-28] MEDS: oxyCODONE 5 MG TAB PO PRN ×3 (06:19→19:50)
[2019-01-28 07:47] VITALS: BP 120/70; PULSE 60; RESP 16
--- NOTE | 2019-01-28 08:35 | OPPN ---
Date/Time of Note Date/Time of Note DATE: 01/28/19 TIME: 08:35 Anesthesia Follow up Anesthesia Follow up Last documented vital signs Vital Signs Date Temp Pulse Resp B/P (MAP) Pulse Ox O2 O2 Flow FiO2 Time Delivery Rate 01/28/19 98.2 60 16 120/70 95 Nasal 07:47 (87) Cannula 01/27/19 2.0 18:20 Respiratory function: WNL Cardiovascular function: WNL Comments A 63 year male s/p left knee replacement, under GA, spinal duramorph for post op pain. POD #1 is doing well. no pain, N/V, itching, headache, neural deficit. care per surgery TONY SCOTT MD Jan 28, 2019 08:35
[2019-01-28] MEDS: DOCUSATE SODIUM 100 MG CAP PO SCH ×2 (08:55→21:46)
[2019-01-28] MEDS: ASPIRIN (EC) 81 MG TAB PO SCH ×2 (08:55→21:49)
[2019-01-28] MEDS: CELECOXIB 100 MG CAP PO SCH ×2 (08:55→21:46)
[2019-01-28] MEDS: GABAPENTIN 100 MG CAP PO SCH ×3 (08:55→21:46)
--- NOTE | 2019-01-28 12:51 | CONS ---
Consult Date/Type/Reason Admit Date/Time Jan 27, 2019 at 06:53 Initial Consult Date Date/Time of Note DATE: 01/28/19 TIME: 12:49 Subjective Patient seen by physical therapy team earlier today. Still complaining of some eye itchiness and generalized body itchiness. Objective Vitals Vital Signs Date Temp Pulse Resp B/P (MAP) Pulse Ox O2 O2 Flow FiO2 Time Delivery Rate 01/28/19 Nasal 3.0 08:00 Cannula 01/28/19 98.2 60 16 120/70 95 07:47 (87) Intake and Output 01/27/19 01/27/19 01/28/19 1515:00 23:00 07:00 IntakeIntake Total 1700 ml 850 ml 450 ml OutputOutput Total 50 ml 280 ml BalanceBalance 1650 ml 850 ml 170 ml Exam General: Lying in bed, no acute distress HEENT: Normocephalic, Atraumatic, No laceration or hematoma; Eyes: PEERL, Conjunctiva clear, Anicteric sclera Neck: Supple without any lymphadenopathy, nontender, Cardiac: S1, S2 auscultated, no mumurs or gallop Pulmonary: Normal respiratory effort. Chest clear to auscultation bilaterally, no adventitious breath sounds GI: Abdomen normal to inspection. Soft, non- distended, no masses, no rebound tenderness or guarding. Bowel sounds active on all four quadrants Extremities: Slight decreased range of motion left lower extremity, otherwise no lower extremity edema bilaterally Neurologic: No focal deficits Results/Medications Result Diagram: 01/28/19 0427 01/28/19 0427 Results 24 hrs Laboratory Tests Test 01/28/19 04:27 01/28/19 07:31 White Blood Count 14.0 #H Red Blood Count 3.77 L Hemoglobin 10.8 L Hematocrit 33.9 L Mean Corpuscular Volume 89.9 Mean Corpuscular Hemoglobin 28.6 L Mean Corpuscular Hemoglobin Concent 31.9 L Red Cell Distribution Width 13.8 Platelet Count 227 Mean Platelet Volume 10.5 H Immature Granulocytes % 0.500 H Neutrophils % 83.6 H Lymphocytes % 9.1 L Monocytes % 6.6 Eosinophils % 0.1 Basophils % 0.1 Nucleated Red Blood Cells % 0.0 Immature Granulocytes # 0.070 H Neutrophils # 11.7 H Lymphocytes # 1.3 Monocytes # 0.9 Eosinophils # 0.0 Basophils # 0.0 Nucleated Red Blood Cells # 0.0 Sodium Level 141 Potassium Level 4.2 Chloride Level 107 Carbon Dioxide Level 29 Anion Gap 5 Blood Urea Nitrogen 18 Creatinine 0.52 Est Glomerular Filtrat Rate mL/min > 60 Glucose Level 138 Calcium Level 8.6 Lab Scanned Report [facility] Home Meds Reported Medications Acetaminophen with Codeine (Acetaminophen-Cod #4 Tablet) 1 Each Tablet, 1 TAB ORAL Q12 PRN for PAIN LEVEL 6-10 01/27/19 Citalopram Hydrobromide* (Citalopram Hydrobromide*) 20 Mg Tablet, 1 TAB ORAL DAILY 01/27/19 Metoprolol Succinate* (Toprol XL*) 50 Mg Tab.er.24h, 1 TAB ORAL DAILY 01/27/19 Docusate Sodium* (Docusate Sodium*) 100 Mg Capsule, 100 MG PO BID, #60 CAP 01/27/19 Omeprazole* (Omeprazole*) 20 Mg Capsule.dr, 20 MG PO DAILY, CAP 06/24/15 Discontinued Reported Medications Metoprolol Tartrate* (Lopressor*) 25 Mg Tab, 25 MG PO BID, #60 TAB 06/24/15 Gabapentin* (Neurontin*) 100 Mg Capsule, 200 MG PO BID, CAP 06/24/15 Methocarbamol* (Methocarbamol*) 500 Mg Tablet, 500 MG PO Q8, TAB 06/24/15 Escitalopram Oxalate* (Lexapro*) 10 Mg Tablet, 10 MG PO DAILY, #30 TAB 06/24/15 Medications Current Medications IV Flush (NS 3 ml) 3 ml PER PROTOCOL IV ; Start 01/27/19 at 13:30 Oxycodone HCl (Roxicodone) 5 mg Q4H PRN PO .PAIN Last administered on 01/28/19at 06:19; Admin Dose 5 MG; Start 01/27/19 at 13:30 Ketorolac Tromethamine (Toradol) 15 mg Q6H PRN IV .PAIN Last administered on 01/28/19at 08:58; Admin Dose 15 MG; Start 01/27/19 at 13:30 Celecoxib (Celebrex) 100 mg BID PO Last administered on 01/28/19at 08:55; Admin Dose 100 MG; Start 01/28/19 at 09:00 Gabapentin (Neurontin) 100 mg TID PO Last administered on 01/28/19at 08:55; Admin Dose 100 MG; Start 01/27/19 at 21:00 Pantoprazole (Protonix Tab) 40 mg DAILY@06 PO ; Start 01/29/19 at 06:00 Docusate Sodium (Colace) 200 mg BID PO Last administered on 01/28/19at 08:55; Admin Dose 200 MG; Start 01/28/19 at 09:00; Stop 01/31/19 at 08:59 Simethicone (Mylicon) 80 mg TID PRN PO .GAS; Start 01/27/19 at 13:30 Senna/Docusate Sodium (Senokot-S) 2 tab BID PRN PO .CONSTIPATION; Start 01/27/19 at 13:30 Magnesium Hydroxide (Milk Of Mag) 30 ml HS PRN PO .CONSTIPATION; Start 01/27/19 at 13:30 Bisacodyl (Dulcolax Supp) 10 mg DAILY PRN [place] .CONSTIPATION; Start 01/27/19 at 13:30 Sodium Biphosphate/ Sodium Phosphate (Fleet Enema) 133 ml DAILY PRN [place] .CONSTIPATION; Start 01/27/19 at 13:30 Naloxone HCl (Narcan) 0.2 mg Q2M PRN IV .RESP RATE; Start 01/27/19 at 13:30 Aspirin (Halfprin) 81 mg BID PO Last administered on 01/28/19at 08:55; Admin Dose 81 MG; Start 01/28/19 at 09:00 Eye Lubricant (Artificial Tears Oph) 2 drop Q6H PRN BOTH EYES DRY EYES Last administered on 01/28/19at 06:15; Admin Dose 2 DROP; Start 01/28/19 at 05:21 Ciprofloxacin HCl (Ciloxan 0.3% Oph) 1 drop DAILY BOTH EYES ; Start 01/28/19 at 13:00; Status UNV Assessment/Plan Hospital Course (Demo Recall) Assessment and plan: 63-year-old female past medical history hypertension, depression, osteoporosis, prior rectal bleed, osteoarthritis, who was brought in for elective knee surgery. #Status post left total knee replacement: Again secondary to osteoarthritis, now status post left TKR postop day #1 -Continue postoperative care per primary orthopedic surgery team including pain control medications, labs, fluids, therapy # HTN: Presently stable -Monitor, continue current medications #: History of depression: Monitor for now #Osteoporosis: Monitor, continue PT SERGE VALLADARES Jan 28, 2019 12:51
[2019-01-28] MEDS ORDERED: DIPHENHYDRAMINE 25 MG CAP PO PRN (13:00)
[2019-01-28] MEDS: CIPROFLOXACIN 0.3% 2.5 ML OPH BOTH EYES SCH ×2 (13:00→19:48)
[2019-01-28 14:56] VITALS: BP 131/63; PULSE 66; RESP 15
[2019-01-28 19:10] VITALS: BP 141/71; PULSE 75; RESP 18
[2019-01-29] MEDS: oxyCODONE 5 MG TAB PO PRN ×5 (01:26→19:55)
[2019-01-29 01:49] VITALS: BP 146/69; PULSE 77; RESP 18
[2019-01-29] MEDS: KETOROLAC 15 MG INJ IV PRN ×3 (02:59→18:26)
[2019-01-29] MEDS ORDERED: PANTOPRAZOLE (EC) 40 MG TAB PO SCH (06:00)
[2019-01-29 07:13] VITALS: BP 138/72; PULSE 82; RESP 19
[2019-01-29] MEDS: GABAPENTIN 100 MG CAP PO SCH ×3 (09:09→19:55)
[2019-01-29] MEDS: ASPIRIN (EC) 81 MG TAB PO SCH ×2 (09:09→19:54)
[2019-01-29] MEDS: CIPROFLOXACIN 0.3% 2.5 ML OPH BOTH EYES SCH (09:09)
[2019-01-29] MEDS: DOCUSATE SODIUM 100 MG CAP PO SCH ×2 (09:09→19:55)
[2019-01-29] MEDS: CELECOXIB 100 MG CAP PO SCH ×2 (09:09→19:55)
--- NOTE | 2019-01-29 13:19 | CONS ---
Consult Date/Type/Reason Admit Date/Time Jan 27, 2019 at 06:53 Initial Consult Date Date/Time of Note DATE: 01/29/19 TIME: 13:18 Subjective Patient per nursing staff worked with physical therapy. Has less eye burning symptoms. Is complaining of some body pain however today. Objective Vitals Vital Signs Date Temp Pulse Resp B/P (MAP) Pulse Ox O2 O2 Flow FiO2 Time Delivery Rate 01/29/19 98.1 82 19 138/72 98 07:13 (94) 01/28/19 Nasal 14:56 Cannula 01/28/19 3.0 08:00 Intake and Output 01/28/19 01/28/19 01/29/19 1515:00 23:00 07:00 IntakeIntake Total 280 ml 50 ml OutputOutput Total 500 ml BalanceBalance 280 ml -450 ml Exam General: Lying in bed, no acute distress HEENT: Normocephalic, Atraumatic, No laceration or hematoma; Eyes: PEERL, Conjunctiva clear, Anicteric sclera Neck: Supple without any lymphadenopathy, nontender, Cardiac: S1, S2 auscultated, no mumurs or gallop Pulmonary: Normal respiratory effort. Chest clear to auscultation bilaterally, no adventitious breath sounds GI: Abdomen normal to inspection. Soft, non- distended, no masses, no rebound t enderness or guarding. Bowel sounds active on all four quadrants Extremities: Slight decreased range of motion left lower extremity, otherwise no lower extremity edema bilaterally Neurologic: No focal deficits Results/Medications Result Diagram: 01/29/19 0423 01/29/19 0423 Results 24 hrs Laboratory Tests Test 01/29/19 04:23 White Blood Count 9.3 # Red Blood Count 3.83 L Hemoglobin 11.1 L Hematocrit 34.3 L Mean Corpuscular Volume 89.6 Mean Corpuscular Hemoglobin 29.0 Mean Corpuscular Hemoglobin Concent 32.4 Red Cell Distribution Width 13.9 Platelet Count 214 Mean Platelet Volume 10.6 H Immature Granulocytes % 0.300 Neutrophils % 68.4 Lymphocytes % 22.2 Monocytes % 7.0 Eosinophils % 1.6 Basophils % 0.5 Nucleated Red Blood Cells % 0.0 Immature Granulocytes # 0.030 Neutrophils # 6.3 Lymphocytes # 2.1 Monocytes # 0.7 Eosinophils # 0.2 Basophils # 0.1 Nucleated Red Blood Cells # 0.0 Sodium Level 141 Potassium Level 4.2 Chloride Level 104 Carbon Dioxide Level 33 H Anion Gap 4 L Blood Urea Nitrogen 12 Creatinine 0.55 Est Glomerular Filtrat Rate mL/min > 60 Glucose Level 113 Calcium Level 8.6 Home Meds Reported Medications Acetaminophen with Codeine (Acetaminophen-Cod #4 Tablet) 1 Each Tablet, 1 TAB ORAL Q12 PRN for PAIN LEVEL 6-10 01/27/19 Citalopram Hydrobromide* (Citalopram Hydrobromide*) 20 Mg Tablet, 1 TAB ORAL DAILY 01/27/19 Metoprolol Succinate* (Toprol XL*) 50 Mg Tab.er.24h, 1 TAB ORAL DAILY 01/27/19 Docusate Sodium* (Docusate Sodium*) 100 Mg Capsule, 100 MG PO BID, #60 CAP 01/27/19 Omeprazole* (Omeprazole*) 20 Mg Capsule.dr, 20 MG PO DAILY, CAP 06/24/15 Discontinued Reported Medications Metoprolol Tartrate* (Lopressor*) 25 Mg Tab, 25 MG PO BID, #60 TAB 06/24/15 Gabapentin* (Neurontin*) 100 Mg Capsule, 200 MG PO BID, CAP 06/24/15 Methocarbamol* (Methocarbamol*) 500 Mg Tablet, 500 MG PO Q8, TAB 06/24/15 Escitalopram Oxalate* (Lexapro*) 10 Mg Tablet, 10 MG PO DAILY, #30 TAB 06/24/15 Medications Current Medications IV Flush (NS 3 ml) 3 ml PER PROTOCOL IV ; Start 01/27/19 at 13:30 Oxycodone HCl (Roxicodone) 5 mg Q4H PRN PO .PAIN Last administered on 01/29/19at 09:05; Admin Dose 5 MG; Start 01/27/19 at 13:30 Ketorolac Tromethamine (Toradol) 15 mg Q6H PRN IV .PAIN Last administered on 01/29/19at 09:09; Admin Dose 15 MG; Start 01/27/19 at 13:30 Celecoxib (Celebrex) 100 mg BID PO Last administered on 01/29/19at 09:09; Admin Dose 100 MG; Start 01/28/19 at 09:00 Gabapentin (Neurontin) 100 mg TID PO Last administered on 01/29/19at 13:16; Ad min Dose 100 MG; Start 01/27/19 at 21:00 Pantoprazole (Protonix Tab) 40 mg DAILY@06 PO Last administered on 01/29/19 06:38; Admin Dose 40 MG; Start 01/29/19 at 06:00 Docusate Sodium (Colace) 200 mg BID PO Last administered on 01/29/19 09:09; Admin Dose 200 MG; Start 01/28/19 at 09:00; Stop 01/31/19 at 08:59 Simethicone (Mylicon) 80 mg TID PRN PO .GAS; Start 01/27/19 at 13:30 Senna/Docusate Sodium (Senokot-S) 2 tab BID PRN PO .CONSTIPATION Last administered on 01/28/19 13:12; Admin Dose 2 TAB; Start 01/27/19 at 13:30 Magnesium Hydroxide (Milk Of Mag) 30 ml HS PRN PO .CONSTIPATION Last a dministered on 01/29/19 03:07; Admin Dose 30 ML; Start 01/27/19 at 13:30 Bisacodyl (Dulcolax Supp) 10 mg DAILY PRN [place] .CONSTIPATION; Start 01/27/19 at 13:30 Sodium Biphosphate/ Sodium Phosphate (Fleet Enema) 133 ml DAILY PRN [place] .CONSTIPATION; Start 01/27/19 at 13:30 Naloxone HCl (Narcan) 0.2 mg Q2M PRN IV .RESP RATE; Start 01/27/19 at 13:30 Aspirin (Halfprin) 81 mg BID PO Last administered on 01/29/19 09:09; Admin Dose 81 MG; Start 01/28/19 at 09:00 Eye Lubricant (Artificial Tears Oph) 2 drop Q6H PRN BOTH EYES DRY EYES Last administered on 01/28/19 15:12; Admin Dose 2 DROP; Start 01/28/19 at 05:21 Ciprofloxacin HCl (Ciloxan 0.3% Oph) 1 drop DAILY BOTH EYES Last administered on 01/29/19 09:09; Admin Dose 1 DROP; Start 01/28/19 at 13:00 Diphenhydramine HCl (Benadryl) 25 mg Q8H PRN PO ITCHING Last administered on 01/28/19 13:12; Admin Dose 25 MG; Start 01/28/19 at 13:00 Assessment/Plan Hospital Course (Demo Recall) Assessment and plan: 63-year-old female past medical history hypertension, depression, osteoporosis, prior rectal bleed, osteoarthritis, who was brought in for elective knee surgery. #Status post left total knee replacement: Again secondary to osteoarthritis, now status post left TKR postop day # 2 -Continue postoperative care per primary orthopedic surgery team including pain control medications, labs, fluids, therapy # HTN: Presently stable -Monitor, continue current medications #: History of depression: Monitor for now #Osteoporosis: Monitor, continue PT SERGE VALLAADRES Jan 29, 2019 13:19
[2019-01-29 20:00] VITALS: BP 128/70; PULSE 80; RESP 18
[2019-01-29 21:04] VITALS: BP 133/70; PULSE 80; RESP 18
== END 2019-01-29 21:35 | DRG 470 ==
LOC: REC 06:53 → MS1 15:28
PROVIDERS: ADMIT Orthopaedic Surgery Adult Reconstructive Orthopaedic Surgery; ATTEND Orthopaedic Surgery Adult Reconstructive Orthopaedic Surgery
PROC: 0SRD069 Replacement of Left Knee Joint with Oxidized Zirconium on Polyethylene Synthetic Substitute, Cemented, Open Approach (ICD-10-PCS; principal; 2019-01-27 11:00)
DX: M17.12 Unilateral primary osteoarthritis, left knee (principal); I10 Essential (primary) hypertension; E78.5 Hyperlipidemia, unspecified; E66.9 Obesity, unspecified; Z68.34 Body mass index [BMI] 34.0-34.9, adult; F17.200 Nicotine dependence, unspecified, uncomplicated; F32.9 Major depressive disorder, single episode, unspecified; M81.0 Age-related osteoporosis without current pathological fracture; M19.90 Unspecified osteoarthritis, unspecified site
CPT/HCPCS: 73560; 80048; 85025; 88304; 88311; 97116; 97161; 97530; C1713; C1776; J0131; J0171; J0690; J0735; J1100; J1885; J2250; J2274; J2405; J2765; J2795; J3370; J7120